=== PATIENT | female | born 1975 | race Caucasian/White ===

== ENCOUNTER 2019-10-02 10:23 | Outpatient (CLI) | payer OTHER, SELFPAY ==
[2019-10-02 11:03] LABS: Basophils Percent Auto 0.5 % (0.2-1.2); Eosinophils Absolute Auto 0.2 K/mm3 (0-0.3); Eosinophils Percent Auto 1.9 % (0-4.4); Hematocrit 38.3 % (37.0-47.0); Immature Granulocyte Absolute 0.02 K/mm3 (0.00-0.031); Immature Granulocyte Percent A 0.2 % (0-0.5); Lymphocytes Absolute Auto 1.77 K/mm3 (0.9-3.2); Lymphocytes Percent Auto 21.1 % (18.3-44.2); Mean Corpuscular HGB Conc 31.3 g/dl (32-36); Mean Corpuscular Hemoglobin 28.4 pg (26-34); Mean Corpuscular Volume 90.5 fl (80-100); Mean Platelet Volume 11.7 fl (7.4-10.4); Monocytes Absolute Auto 0.8 K/mm3 (0.1-0.6); Monocytes Percent Auto 9.1 % (2.6-8.5); Neutrophils Absolute Auto 5.6 K/mm3 (1.3-6.7); Neutrophils Percent Auto 67.2 % (45.5-73.1); Red Blood Count 4.23 M/mm3 (4.2-5.4); Red Cell Distribution Width 13.7 % (11.5-14.5); White Blood Count 8.4 K/mm3 (4.5-10.0)
[2019-10-02 11:16] LABS: Platelet Count Result 195 k/mm3 (150-375)
[2019-10-02 12:15] LABS: Alanine Aminotransferase 17 U/L (4-35); Albumin Level 3.9 g/dL (3.5-5.1); Alkaline Phosphatase 51 U/L (38-126); Aspartate Amino Transferase 21 U/L (14-36); Bilirubin,Total 0.2 mg/dL (0.2-1.3); Blood Urea Nitrogen 14 mg/dL (7-17); Calcium 9.5 mg/dL (8.4-10.2); Carbon Dioxide 28 mmol/L (22-30); Chloride 100 mmol/L (98-107); Estimated Glomerular Filt Rate > 60; Glucose 78 mg/dL (65-105); Potassium 4.6 mmol/L (3.4-5.0); Sodium 139 mmol/L (137-145)
[2019-10-05 08:30] LABS: Platelet Antibody, Direct IgG NEGATIVE (NEGATIVE)
== END 2019-10-02 10:24 | disposition home or self-care (01) ==
PROVIDERS: PCP Emergency Medicine; Visit Provider Internal Medicine Hematology & Oncology
DX: D69.59 Other secondary thrombocytopenia (principal)
CPT/HCPCS: 36415; 80053; 85025; 86023

== ENCOUNTER 2020-08-31 10:01 | Emergency (ER) | payer OTHER, SELFPAY ==
[2020-08-31] VITALS (15 sets, daily range): BP systolic 97–123; BP diastolic 51–71; PULSE 60–84; RESP 11–22; TEMP 36.1–36.7; O2SAT 97–100
--- NOTE | ~2020-08-31 | XR_ITS ---
EXAMINATION: XR chest 2V 08/31/2020 10:21 INDICATION: Chest pain PROCEDURE: PA and lateral views of the chest COMPARISON: No prior studies for comparison. FINDINGS: The lungs are clear. The cardiomediastinal silhouette is within normal limits. There are no pleural effusions. There is no pneumothorax suspected. IMPRESSION: 1: NO ACUTE CARDIOPULMONARY DISEASE. Reviewed, dictated and finalized at location A. MAKER
--- NOTE | 2020-08-31 10:07 | ECG_ITS ---
Measurements Intervals [place] Rate: 91 P: 76 W[place]: 169 QRS: -63 QRSD: 99 T: 83 QT: 368 QTc: 454 Interpretive Statements SINUS RHYTHM POSSIBLE LEFT ATRIAL ENLARGEMENT INCOMPLETE RIGHT BUNDLE BRANCH BLOCK LEFT ANTERIOR FASCICULAR BLOCK BASELINE ARTIFACT- I, III, AVR, AVL, AVF ABNORMAL ECG Electronically Signed On 08-31-2020 14:22:08 FOREST RESOURCE SPECIALIST by Bishnu May D.O.
[2020-08-31 10:31] LABS: Basophils Absolute Auto 0.1 K/mm3 (0.0-0.1); Basophils Percent Auto 0.8 % (0.2-1.2); Eosinophils Absolute Auto 0.2 K/mm3 (0-0.3); Eosinophils Percent Auto 2.1 % (0-4.4); Hematocrit 40.9 % (37.0-47.0); Hemoglobin 13.4 g/dL (12.0-15.0); Immature Granulocyte Absolute 0.03 K/mm3 (0.00-0.031); Immature Granulocyte Percent A 0.4 % (0-0.5); Lymphocytes Absolute Auto 1.67 K/mm3 (0.9-3.2); Lymphocytes Percent Auto 21.7 % (18.3-44.2); Mean Corpuscular HGB Conc 32.8 g/dl (32-36); Mean Corpuscular Hemoglobin 29.1 pg (26-34); Mean Corpuscular Volume 88.9 fl (80-100); Mean Platelet Volume 12.3 fl (7.4-10.4); Monocytes Absolute Auto 0.7 K/mm3 (0.1-0.6); Monocytes Percent Auto 8.7 % (2.6-8.5); Neutrophils Absolute Auto 5.1 K/mm3 (1.3-6.7); Neutrophils Percent Auto 66.3 % (45.5-73.1); Platelet Count Result 149 k/mm3 (150-375); Red Cell Distribution Width 14.8 % (11.5-14.5); White Blood Count 7.7 K/mm3 (4.5-10.0)
[2020-08-31 10:41] LABS: INR 0.8; Partial Thromboplastin Time 25.5 SECONDS (22.3-36.8); Prothrombin Time 12.1 Seconds (11.1-14.7)
[2020-08-31 10:54] LABS: Troponin I < 0.012 ng/mL (0.000-0.034)
[2020-08-31 11:00] LABS: Anion Gap 8 mmol/L (8-16); Blood Urea Nitrogen 21 mg/dL (7-17); Calcium 9.3 mg/dL (8.4-10.2); Carbon Dioxide 27 mmol/L (22-30); Chloride 100 mmol/L (98-107); Estimated CRCL calculation 99 ml/min; Estimated Glomerular Filt Rate > 60; Glucose 94 mg/dL (65-105); Potassium 3.9 mmol/L (3.4-5.0); Sodium 135 mmol/L (137-145)
--- NOTE | 2020-08-31 11:40 | ED.CHESTPAIN ---
HPI - Chest Pain General Chief Complaint: Chest Pain Stated Complaint: Chest Pressure, Flutter Time Seen by Provider: 08/31/20 10:09 Source: patient Mode of arrival: ambulatory Limitations: no limitations History of Present Illness HPI narrative: Patient 45-year-old female who presents for heart fluttering noting that she has been having some tightness of her hands and tingling for the last 2 weeks denies any chest pain or shortness of breath did recently get over Covid on arrival is in no distress denies any URI symptoms chest pain weakness vomiting or acute illness Related Data Allergies Allergy/AdvReac Type Severity Reaction Status Date / Time Sulfa (Sulfonamide Allergy Unknown Hives Verified 08/31/20 10:13 Antibiotics) SHELLFISH Allergy Severe Hives Uncoded 08/31/20 10:13 Review of Systems Review of Systems: All systems reviewed & are unremarkable except as noted in HPI and below PMFSH Past Medical History Medical History Chronic ITP (idiopathic thrombocytopenia) Kidney stones MRSA (methicillin resistant staph aureus) culture positive Surgical History Surgical History H/O tubal ligation Exam Narrative: Exam Narrative: GENERAL: Well-appearing, well-nourished, and in no acute distress. HEAD: Normocephalic, atraumatic. EYES: PERRLA and EOMI. ENT: Nares clear, no rhinorrhea or epistaxis. Mucous membranes moist. CHEST: Clear to auscultation. No respiratory distress. No wheezes rales or rhonchi HEART: Regular rate and rhythm. No murmur heard. Normal peripheral pulses. ABDOMEN: Soft, nontender, nondistended EXTREMITIES: Normal range of motion. No edema. SKIN: Warm, dry, no rash. NEURO: No focal deficits. Alert and oriented x3. Cranial nerves II through XII grossly intact. Neurovascularly intact. Capillary refill less than 2 seconds PSYCH: Normal mood and affect. Course Course Emergency Course: Patient in the room aware of case findings treatment plan diagnosis will be discharged home for outpatient reevaluation of her heart fluttering and paresthesias normal vital signs ABCs intact Vital Signs Vital signs: Vital Signs Temperature 97 F L 08/31/20 10:08 Pulse Rate 84 08/31/20 10:08 Respiratory Rate 15 08/31/20 10:08 Blood Pressure 123/71 08/31/20 10:08 Pulse Oximetry 100 08/31/20 10:08 Temperature 97 F L 08/31/20 10:08 Pulse Rate 64 08/31/20 11:01 Respiratory Rate 11 L 08/31/20 11:01 Blood Pressure 103/66 08/31/20 11:01 Pulse Oximetry 99 08/31/20 11:01 MDM - Chest Pain MDM Narrative Medical decision making narrative: Patient with heart fluttering and paresthesias no high risk changes in the EKG blood work felt appropriate for outpatient reevaluation by primary care patient agrees with this plan Lab Data Result diagrams: 08/31/20 10:15 08/31/20 10:15 Labs: Lab Results 08/31/20 08/31/20 08/31/20 Range/Units 10:15 10:15 10:15 WBC 7.7 (4.5-10.0) K/mm3 RBC 4.60 (4.2-5.4) M/mm3 Hgb 13.4 (12.0-15.0) g/dL Hct 40.9 (37.0-47.0) % MCV 88.9 (80-100) fl MCH 29.1 (26-34) pg MCHC 32.8 (32-36) g/dl RDW 14.8 H (11.5-14.5) % Plt Count 149 L (150-375) k/mm3 MPV 12.3 H (7.4-10.4) fl Immature Gran % (Auto) 0.4 (0-0.5) % Neut % (Auto) 66.3 (45.5-73.1) % Lymph % (Auto) 21.7 (18.3-44.2) % [place] % (Auto) 8.7 H (2.6-8.5) % Eos % (Auto) 2.1 (0-4.4) % Baso % (Auto) 0.8 (0.2-1.2) % Lymph # (Auto) 1.67 (0.9-3.2) K/mm3 [place] # (Auto) 0.7 H (0.1-0.6) K/mm3 Eos # (Auto) 0.2 (0-0.3) K/mm3 Baso # (Auto) 0.1 (0.0-0.1) K/mm3 Abs Immat Gran (auto) 0.03 (0.00-0.031) K/mm3 Absolute Neuts (auto) 5.1 (1.3-6.7) K/mm3 Absolute Nucleated RBC 0.0 (0.0-0.012) K/mm3 Nucleated RBC % 0.0 (0.0-0.2) % PT 12.1 (11.1-14.7) Seconds INR 0.8 AP
== END 2020-08-31 12:06 | disposition home or self-care (01) ==
PROVIDERS: Emergency Provider Emergency Medicine; PCP Emergency Medicine
DX: R00.2 Palpitations (principal); R20.2 Paresthesia of skin; D69.3 Immune thrombocytopenic purpura; Z87.442 Personal history of urinary calculi; Z86.14 Personal history of Methicillin resistant Staphylococcus aureus infection; I45.2 Bifascicular block
CPT/HCPCS: 36415; 71046; 80048; 84484; 85025; 85610; 85730; 93005; 99284

== ENCOUNTER → 2020-09-11 11:38 | Outpatient (CLI) | payer OTHER, SELFPAY ==
--- NOTE | ~2020-09-11 | XR_ITS ---
EXAMINATION: XR hand RT min 3V DATE: 09/11/2020 12:01 INDICATION: Right hand pain. TECHNIQUE: 3 views of right hand were obtained. COMPARISON: None. FINDINGS: Bone alignment is normal. No fracture. Joint spaces are normal. IMPRESSION: 1. Normal right hand. Reviewed, dictated and finalized at location B. IC RELATIONS ACCOUNT SUPERVISOR IMPRESSION: 1. Normal right hand.
--- NOTE | ~2020-09-11 | XR_ITS ---
EXAMINATION: XR wrist LT min 3V DATE: 09/11/2020 12:01 INDICATION: Left wrist pain. TECHNIQUE: 4 views of left wrist were obtained. COMPARISON: None. FINDINGS: Bone alignment is normal. No fracture. Joint spaces are well maintained. IMPRESSION: 1. Normal left wrist. Reviewed, dictated and finalized at location B. RVISOR BLASTING IMPRESSION: 1. Normal left wrist.
--- NOTE | ~2020-09-11 | XR_ITS ---
EXAMINATION: XR wrist RT min 3V DATE: 09/11/2020 12:01 INDICATION: Right wrist pain. TECHNIQUE: 4 views of right wrist were obtained. COMPARISON: None. FINDINGS: Bone alignment is normal. No fracture. Joint spaces are well maintained. IMPRESSION: 1. Normal right wrist. Reviewed, dictated and finalized at location B. RMATION SYSTEMS DIRECTOR IMPRESSION: 1. Normal right wrist.
--- NOTE | ~2020-09-11 | XR_ITS ---
EXAMINATION: XR hand LT min 3V DATE: 09/11/2020 12:01 INDICATION: Left hand pain. TECHNIQUE: 3 views of left hand were obtained. COMPARISON: None. FINDINGS: Bone alignment is normal. No fracture. There is mild osteoarthritis of first interphalangea l joint and second and third distal interphalangeal joints. IMPRESSION: 1. Mild polyarticular osteoarthritis. Reviewed, dictated and finalized at location B. RUCTIONAL MANAGER
== END ==
PROVIDERS: PCP Emergency Medicine; Visit Provider Emergency Medicine
DX: M25.541 Pain in joints of right hand (principal); M19.042 Primary osteoarthritis, left hand
CPT/HCPCS: 73110; 73130

== ENCOUNTER 2020-09-26 10:46 | Outpatient (CLI) | payer OTHER, SELFPAY ==
[2020-09-26 11:13] LABS: Basophils Absolute Auto 0.1 K/mm3 (0.0-0.1); Basophils Percent Auto 0.6 % (0.2-1.2); Eosinophils Absolute Auto 0.2 K/mm3 (0-0.3); Eosinophils Percent Auto 2.5 % (0-4.4); Hematocrit 38.8 % (37.0-47.0); Hemoglobin 12.5 g/dL (12.0-15.0); Immature Granulocyte Absolute 0.03 K/mm3 (0.00-0.031); Immature Granulocyte Percent A 0.4 % (0-0.5); Immature Platelet Fraction Pct 36.1 % (0.9-11.2); Lymphocytes Absolute Auto 1.42 K/mm3 (0.9-3.2); Lymphocytes Percent Auto 16.8 % (18.3-44.2); Mean Corpuscular HGB Conc 32.2 g/dl (32-36); Mean Corpuscular Hemoglobin 28.9 pg (26-34); Mean Corpuscular Volume 89.8 fl (80-100); Monocytes Absolute Auto 0.7 K/mm3 (0.1-0.6); Monocytes Percent Auto 8.3 % (2.6-8.5); Neutrophils Percent Auto 71.4 % (45.5-73.1); Platelet Count Result 93 k/mm3 (150-375); Red Blood Count 4.32 M/mm3 (4.2-5.4); White Blood Count 8.4 K/mm3 (4.5-10.0)
[2020-09-26 11:13] LABS: Blood Urea Nitrogen 20 mg/dL (8-26); Carbon Dioxide 29 mmol/L (22-30); Chloride 100 mmol/L (98-109); Estimated Glomerular Filt Rate > 60; Glucose 85 mg/dL (70-105); Potassium 4.4 mmol/L (3.5-4.9); Sodium 138 mmol/L (138-146)
== END 2020-09-26 10:47 | disposition home or self-care (01) ==
LOC: ANHLAB 10:48
PROVIDERS: PCP Emergency Medicine; Visit Provider Internal Medicine Hematology & Oncology
DX: D69.59 Other secondary thrombocytopenia (principal)
CPT/HCPCS: 36415; 80048; 85025; 85055

== ENCOUNTER 2020-11-01 10:21 | Outpatient (CLI) | payer OTHER, SELFPAY ==
--- NOTE | ~2020-11-01 | MM_ITS ---
EXAMINATION: MM screening [place] BI w teo HISTORY: Screening mammogram TECHNIQUE: Craniocaudal and mediolateral oblique 3-D tomosynthesis images were obtained and synthetic 2-D images were generated. CAD analysis was submitted and interpreted. COMPARISON: No prior mammogram is available for comparison at this institution. BREAST PARENCHYMAL COMPOSITION: There are scattered areas of fibroglandular density. FINDINGS: There is an asymmetric 7 mm opacity in the mid anterior mid left breast on craniocaudal vie w (craniocaudal Tomosynthesis image 32/69). Diagnostic left mammogram is recommended, with ultrasound if required. Otherwise there is no evidence of suspicious mass, calcification, or architectural distortion to sugg est malignancy in either breast. IMPRESSION: 1. 7 mm asymmetry in anterior left mid breast on craniocaudal view 2. Diagnostic left mammogram is recommended, with ultrasound if required BI-RADS Category 0: Incomplete: Needs additional imaging evaluation. Reviewed, dictated and finalized at location A. ATTACHER
== END 2020-11-01 10:22 | disposition home or self-care (01) ==
LOC: ANHIMG 10:23
PROVIDERS: PCP Emergency Medicine; Visit Provider Nurse Practitioner Obstetrics & Gynecology
DX: Z12.31 Encounter for screening mammogram for malignant neoplasm of breast (principal); R92.8 Other abnormal and inconclusive findings on diagnostic imaging of breast
CPT/HCPCS: 77063; 77067

== ENCOUNTER 2020-11-29 12:41 | Outpatient (CLI) | payer OTHER, SELFPAY ==
--- NOTE | ~2020-11-29 | MMUS_ITS ---
EXAMINATION: MM diagnostic mammo unilat LT, US breast LT complete HISTORY: 7 mm asymmetry in anterior left mid breast on 11/01/2020 screening craniocaudal view TECHNIQUE: Additional 3-D tomosynthesis images of the left breast were performed and synthetic 2-D im ages were generated. Rolled medial and lateral craniocaudal views. CAD analysis was submitted and int erpreted. High resolution complete left breast ultrasound was performed. COMPARISON: 11/01/2020 bilateral digital screening mammogram FINDINGS: MAMMOGRAPHIC FINDINGS: Coned compression CC view and rolled medial and rolled lateral craniocaudal views and ML Tomosynthesi s images do not confirm a definitive mass. ULTRASOUND: 2:00 subareolar area: Approximately 3.6 mm sonolucency with through transmission posterior enhancemen t and no internal vascularity, consistent with small cyst. No suspicious mass or shadowing or other significant sonographic abnormality of the left breast is ev ident. IMPRESSION: 1. No mammographic evidence of malignancy 2. Routine annual mammographic screening is recommended. BI-RADS Category 2: Benign finding(s). Reviewed, dictated and finalized at location A. IMPRESSION: 1. No mammographic evidence of malignancy 2. Routine annual mammographic screening is recommended. BI-RADS Category 2: Benign finding(s).
== END 2020-11-29 12:42 | disposition home or self-care (01) ==
LOC: ANHIMG 12:43
PROVIDERS: PCP Emergency Medicine; Visit Provider Nurse Practitioner Obstetrics & Gynecology
DX: R92.8 Other abnormal and inconclusive findings on diagnostic imaging of breast (principal)
CPT/HCPCS: 76641; 77065

== ENCOUNTER 2021-04-22 11:28 | Outpatient (CLI) | payer OTHER, SELFPAY ==
[2021-04-22 11:45] LABS: Basophils Absolute Auto 0.1 K/mm3 (0.0-0.1); Basophils Percent Auto 0.7 % (0.2-1.2); Eosinophils Absolute Auto 0.2 K/mm3 (0-0.3); Eosinophils Percent Auto 2.1 % (0-4.4); Hematocrit 38.2 % (37.0-47.0); Hemoglobin 12.2 g/dL (12.0-15.0); Immature Granulocyte Absolute 0.03 K/mm3 (0.00-0.031); Immature Granulocyte Percent A 0.4 % (0-0.5); Immature Platelet Fraction Pct 48.3 % (0.9-11.2); Lymphocytes Absolute Auto 1.28 K/mm3 (0.9-3.2); Lymphocytes Percent Auto 17.8 % (18.3-44.2); Mean Corpuscular HGB Conc 31.9 g/dl (32-36); Mean Corpuscular Hemoglobin 29.1 pg (26-34); Mean Corpuscular Volume 91.2 fl (80-100); Mean Platelet Volume 13.5 fl (7.4-10.4); Monocytes Absolute Auto 0.7 K/mm3 (0.1-0.6); Monocytes Percent Auto 9.6 % (2.6-8.5); Neutrophils Percent Auto 69.4 % (45.5-73.1); Platelet Count Result 28 k/mm3 (150-375); Red Blood Count 4.19 M/mm3 (4.2-5.4); Red Cell Distribution Width 14.8 % (11.5-14.5); White Blood Count 7.2 K/mm3 (4.5-10.0)
== END 2021-04-22 11:29 | disposition home or self-care (01) ==
LOC: ANHLAB 11:31
PROVIDERS: PCP Emergency Medicine; Visit Provider Internal Medicine Hematology & Oncology
DX: D69.59 Other secondary thrombocytopenia (principal)
CPT/HCPCS: 36415; 85025; 85055

== ENCOUNTER → 2021-09-17 13:02 | Outpatient (CLI) | payer OTHER, SELFPAY ==
--- NOTE | ~2021-09-17 | XR_ITS ---
EXAMINATION: XR chest 2V EXAM DATE: 09/17/2021 13:18 INDICATION: Cough and wheezing. TECHNIQUE: Frontal and lateral projections of the chest obtained and reviewed. Comparison is made to prior examination from 08/31/2020. FINDINGS: The lungs are clear. There are no pleural effusions. The cardiomediastinal silhouette is within normal limits. There is no pneumothorax suspected. The bones and soft tissues are unremarkab le. IMPRESSION: Normal chest x-ray exam. Reviewed, dictated and finalized at location A. IZER WATER WELL IMPRESSION: Normal chest x-ray exam.
== END ==
PROVIDERS: PCP Emergency Medicine; Visit Provider Emergency Medicine
DX: R05.9 Cough, unspecified (principal); R06.2 Wheezing
CPT/HCPCS: 71046

== ENCOUNTER → 2021-09-18 01:16 | Outpatient (CLI) | payer OTHER, SELFPAY ==
[2021-09-18 18:23] LABS: SARS-CoV-2 RNA PCR Negative
== END ==
PROVIDERS: PCP Emergency Medicine; Visit Provider Emergency Medicine
DX: J06.9 Acute upper respiratory infection, unspecified (principal); Z20.822 Contact with and (suspected) exposure to COVID-19
CPT/HCPCS: C9803; U0003; U0005

== ENCOUNTER → 2022-01-13 01:45 | Outpatient (CLI) | payer OTHER, SELFPAY ==
[2022-01-13 16:48] LABS: SARS-CoV-2 RNA PCR Positive
== END ==
PROVIDERS: PCP Emergency Medicine; Visit Provider Emergency Medicine
DX: U07.1 COVID-19 (principal)
CPT/HCPCS: C9803; U0003; U0005

== ENCOUNTER 2022-01-22 07:20 | Outpatient (CLI) | payer OTHER, SELFPAY ==
--- NOTE | ~2022-01-22 | MM_ITS ---
EXAMINATION: MM screening [place] BI w teo HISTORY: Screening mammogram TECHNIQUE: Craniocaudal and mediolateral oblique 3-D tomosynthesis images were obtained and synthetic 2-D images were generated. CAD analysis was submitted and interpreted. COMPARISON: 11/29/2020 diagnostic left mammogram and complete left breast ultrasound 11/01/2020 bilateral screening mammogram BREAST PARENCHYMAL COMPOSITION: There are scattered areas of fibroglandular density. FINDINGS: There is no evidence of suspicious mass, calcification, or architectural distortion to sugg est malignancy in either breast. There has been no suspicious interval change. IMPRESSION: 1. No mammographic evidence of malignancy. 2. Recommend routine screening mammography in one year. BI-RADS Category 1: Negative Reviewed, dictated and finalized at location A.
== END 2022-01-22 07:21 | disposition home or self-care (01) ==
LOC: ANHIMG 07:21
PROVIDERS: PCP Emergency Medicine; Visit Provider Emergency Medicine
DX: Z12.31 Encounter for screening mammogram for malignant neoplasm of breast (principal)
CPT/HCPCS: 77063; 77067

== ENCOUNTER 2022-08-22 06:44 | Emergency (ER) | payer OTHER, SELFPAY ==
--- NOTE | ~2022-08-22 | CT_ITS ---
EXAMINATION: CT abdomen pelvis w con DATE: 08/22/2022 10:37 INDICATION: Left lower quadrant abdominal pain. TECHNIQUE: Computed tomography (CT) of the abdomen and pelvis was performed with 100 mL Omnipaque 350 intravenous contrast. Automated exposure control and iterative reconstruction technique were employe d. The dose-length product was 569.27 mGy-cm. COMPARISON: None. FINDINGS: The visualized portions of the lung bases are clear without pneumonia or pleural effusion. The heart size is normal. No pericardial effusion. The liver, gallbladder, spleen, pancreas, adrenal glands, and left kidney are normal. There is mild atrophy of right kidney. There is fat stranding bakari und an epiploic appendage of sigmoid colon, consistent with epiploic appendagitis. There are no dilat ed loops of bowel. The appendix is normal. There are no pathologically enlarged lymph nodes. There is no free intraperitoneal fluid. The bones are unremarkable. IMPRESSION: 1. Epiploic appendagitis of sigmoid colon. Reviewed, dictated and finalized at location A. ER RECOVERY OPERATOR
[2022-08-22 06:52] VITALS: BP 111/68; PULSE 83; RESP 18; TEMP 36.6; O2SAT 100
--- NOTE | 2022-08-22 09:54 | ED.ABDPAIN ---
HPI - Abdominal Pain General Chief Complaint: Abdominal Pain <GONZALO Atkinson Last Filed: 08/22/22 11:04> Stated Complaint: left flank pain <GONZALO Atkinson Last Filed: 08/22/22 11:04> Time Seen by Provider: 08/22/22 09:48 <GONZALO Atkinson Last Filed: 08/22/22 11:04> History of Present Illness HPI narrative: Patient is a 46-year-old female with a history of Sjogren's syndrome and ITP here for evaluation of left-sided abdominal pain for the past 2 days. Patient states the pain is sharp in nature and is constant, no obvious alleviating or triggering factors. She has not taken any medicine for pain. Denies a history of previous similar sensation. She denies any vomiting, nausea, diarrhea, constipation, dysuria, urgency, frequency, fevers. She has a history of a tubal ligation. <GONZALO Atkinson Last Filed: 08/22/22 11:04> Related Data Allergies/Adverse Reactions: Allergies Allergy/AdvReac Type Severity Reaction Status Date / Time Sulfa (Sulfonamide Allergy Unknown Hives Verified 08/22/22 10:02 Antibiotics) SHELLFISH Allergy Severe Hives Uncoded 08/22/22 10:02 <GONZALO Atkinson Last Filed: 08/22/22 11:04> Review of Systems Review of Systems: Gen.: Denies fevers or chills Eyes: Denies eye pain or visual change ENT: Denies congestion Respiratory: Denies shortness of breath or cough CV: Denies chest pain or palpitations GI: Reports left lower quadrant abdominal pain denies nausea, emesis or diarrhea : denies burning, urgency, frequency or hematuria Musculoskeletal: Denies back pain or muscle pain Neuro: Denies numbness, tingling, weakness or focal weakness Skin: Denies rash Except as documented, all other systems reviewed and negative <GONZALO Atkinson Last Filed: 08/22/22 11:04> PMFSH Past Medical History Medical History: Medical History Chronic ITP (idiopathic thrombocytopenia) Kidney stones MRSA (methicillin resistant staph aureus) culture positive <Santa Dunn PA-C - Last Filed: 08/22/22 11:04> Surgical History Surgical History: Surgical History H/O tubal ligation <Santa Dunn PA-C - Last Filed: 08/22/22 11:04> Exam Narrative: APPEARANCE: Well appearing, no pain in distress, well-nourished. Head: Normocephalic and atraumatic. EYES: PERRLA/EOMI, conjunctivae clear NOSE: No nasal drainage EARS: External ear normal in appearance THROAT: Oropharynx is clear. Mucous membranes are moist. NECK: Supple. No adenopathy, no masses. RESPIRATORY: Airway patent, respirations nonlabored. Clear to auscultation bilaterally, no rales, rhonchi, wheezing. CARDIOVASCULAR: Regular rate and rhythm without murmurs, rubs, or gallops. ABDOMINAL: Tender to palpation in the left lower quadrant with involuntary guarding normoactive bowel sounds. Soft, nondistended. MUSCULOSKELETAL: Extremities are warm and well-perfused. Moves all extremities well. No edema. NEURO: Normal speech. No focal neurologic deficits. SKIN: Skin is warm and dry. No rashes. PSYCHIATRIC: Normal affect/mood. <Santa Dunn PA-C - Last Filed: 08/22/22 11:04> Course RETAIL GREETING CARD MERCHANDISER/PA Physician Supervision For this encounter, I have reviewed the mid-level provider documentation, treatment plan and medical decision making. I have had [id number] time with the patient. Physical exam revealed a pleasant 46-year-old woman with tenderness in the left lower quadrant. Lab work and CT abdomen pelvis were ordered which revealed epiploic appendagitis. additionally her urinalysis indicated UTI. Patient will be discharged with antibiotics and appropriate pain control. She has been given return precautions. . All questions answered. Patient in agreement w/ disposition. <Kranthi Richardson MD - Last Filed:
[2022-08-22] MEDS: ENTER PT WEIGHT XX (10:11)
[2022-08-22 10:17] LABS: Hematocrit 44.4 % (37.0-47.0); Hemoglobin 13.9 g/dL (12.0-15.0); Immature Platelet Fraction Pct 24.7 % (0.9-11.2); Mean Corpuscular HGB Conc 31.3 g/dl (32-36); Mean Corpuscular Hemoglobin 28.3 pg (26-34); Mean Corpuscular Volume 90.2 fl (80-100); Mean Platelet Volume 10.4 fl (7.4-10.4); Platelet Count Result 53 k/mm3 (150-375); Red Blood Count 4.92 M/mm3 (4.2-5.4); Red Cell Distribution Width 13.1 % (11.5-14.5); White Blood Count 3.6 K/mm3 (4.5-10.0)
[2022-08-22 10:24] LABS: Alanine Aminotransferase 26 U/L (6-35); Albumin Level 4.5 g/dL (3.5-5.1); Alkaline Phosphatase 75 U/L (38-126); Anion Gap 8 mmol/L (8-16); Aspartate Amino Transferase 27 U/L (14-36); Bilirubin,Total 0.4 mg/dL (0.2-1.3); Blood Urea Nitrogen 9 mg/dL (7-17); Calcium 9.1 mg/dL (8.4-10.2); Carbon Dioxide 29 mmol/L (22-30); Chloride 100 mmol/L (98-107); Estimated CRCL calculation 89 ml/min; Estimated Glomerular Filt Rate > 60; Glucose 97 mg/dL (65-110); Lipase 59 U/L (23-300); Sodium 137 mmol/L (137-145)
[2022-08-22 10:27] LABS: Add Urine Microscopic? YES; Appearance Urine Clear (Clear); Bilirubin Urine Negative (Negative); Blood Urine Negative (Negative); Color Urine Yellow (Yellow); Glucose Urine UA Negative (Negative); Ketones Urine Negative (Negative); Leukocyte Esterase Ur 1+ LEU/UL (Negative); Nitrate Urine Positive (Negative); Protein Urine Negative (Negative); Urobilinogen Urine 0.2 mg/dL (<2.0)
[2022-08-22 10:29] LABS: Bacteria Urine Trace /hpf; Mucus Urine Rare /lpf; RBC Urine 0-2 /hpf (0-2); Squamous Epithelial Cell Urine Few /hpf (Few)
[2022-08-22 10:31] LABS: Band Neutrophils Percent 3 % (0-6); Eosinophils Absolute Manual 0.07 K/mm3 (0.02-0.5); Eosinophils Percent Manual 2 % (0-4); Lymphocytes Absolute Manual 1.54 K/mm3 (1.1-4.5); Monocytes Absolute Manual 1.04 K/mm3 (0.1-0.90); Monocytes Percent Manual 29 % (3-9); Neutrophils Absolute Manual 0.93 K/mm3 (1.7-7.2); Neutrophils Percent Manual 23 % (46-73); Platelet Clumps Present; Platelet Estimate Decreased (Adequate); Schistocytes None Seen (NORMAL); Total Cells Counted 100
[2022-08-22] MEDS: KETOROLAC 15 MG/ML VIAL (*BKC) IV PUSH (10:55)
[2022-08-22 10:57] VITALS: BP 122/64; PULSE 64; RESP 17; O2SAT 99
== END 2022-08-22 11:11 | disposition home or self-care (01) ==
LOC: ANHED 10:52
PROVIDERS: Physician Assistant; Emergency Provider Emergency Medicine; PCP Emergency Medicine
DX: K63.89 Other specified diseases of intestine (principal); N39.0 Urinary tract infection, site not specified; M35.00 Sjogren syndrome, unspecified; D69.3 Immune thrombocytopenic purpura; Z87.442 Personal history of urinary calculi; Z86.14 Personal history of Methicillin resistant Staphylococcus aureus infection
CPT/HCPCS: 36415; 74177; 80053; 81001; 81025; 83690; 85025; 85055; 87077; 87086; 87186; 96365; 96375; 99284; J0131; J1885; Q9967

== ENCOUNTER 2022-09-03 11:07 | Outpatient (CLI) | payer OTHER, SELFPAY ==
[2022-09-03 11:17] LABS: Basophils Absolute Auto 0.1 K/mm3 (0.0-0.1); Basophils Percent Auto 0.9 % (0.2-1.2); Eosinophils Absolute Auto 0.2 K/mm3 (0-0.3); Eosinophils Percent Auto 3.5 % (0-4.4); Hematocrit 40.2 % (37.0-47.0); Hemoglobin 12.7 g/dL (12.0-15.0); Immature Granulocyte Absolute 0.03 K/mm3 (0.00-0.031); Immature Granulocyte Percent A 0.5 % (0-0.5); Lymphocytes Absolute Auto 1.59 K/mm3 (0.9-3.2); Lymphocytes Percent Auto 25.1 % (18.3-44.2); Mean Corpuscular HGB Conc 31.6 g/dl (32-36); Mean Corpuscular Hemoglobin 28.3 pg (26-34); Mean Corpuscular Volume 89.7 fl (80-100); Mean Platelet Volume 11.9 fl (7.4-10.4); Monocytes Absolute Auto 0.7 K/mm3 (0.1-0.6); Monocytes Percent Auto 11.7 % (2.6-8.5); Neutrophils Absolute Auto 3.7 K/mm3 (1.3-6.7); Neutrophils Percent Auto 58.3 % (45.5-73.1); Platelet Count Result 60 k/mm3 (150-375); Red Blood Count 4.48 M/mm3 (4.2-5.4); Red Cell Distribution Width 13.1 % (11.5-14.5); White Blood Count 6.3 K/mm3 (4.5-10.0)
[2022-09-03 11:22] LABS: Blood Urea Nitrogen 15 mg/dL (8-26); Carbon Dioxide 31 mmol/L (22-30); Chloride 100 mmol/L (98-109); Estimated Glomerular Filt Rate > 60; Glucose 90 mg/dL (70-105); Ionized Calcium (POC) 1.23 mmol/L (1.11-1.31); Potassium 4.5 mmol/L (3.5-4.9); Sodium 139 mmol/L (138-146)
== END 2022-09-03 11:08 | disposition home or self-care (01) ==
LOC: ANHLAB 11:08
PROVIDERS: PCP Emergency Medicine; Visit Provider Internal Medicine Hematology & Oncology
DX: D69.3 Immune thrombocytopenic purpura (principal)
CPT/HCPCS: 36415; 80047; 85025

== ENCOUNTER 2023-07-07 15:21 | Outpatient (CLI) | payer OTHER, SELFPAY ==
[2023-07-07 15:37] LABS: Basophils Absolute Auto 0.1 K/mm3 (0.0-0.1); Basophils Percent Auto 0.7 % (0.2-1.2); Eosinophils Absolute Auto 0.3 K/mm3 (0-0.3); Eosinophils Percent Auto 3.9 % (0-4.4); Hematocrit 41.3 % (37.0-47.0); Hemoglobin 13.5 g/dL (12.0-15.0); Immature Granulocyte Absolute 0.02 K/mm3 (0.00-0.031); Immature Granulocyte Percent A 0.3 % (0-0.5); Immature Platelet Fraction Pct 44.6 % (0.9-11.2); Lymphocytes Absolute Auto 1.68 K/mm3 (0.9-3.2); Lymphocytes Percent Auto 23.6 % (18.3-44.2); Mean Corpuscular HGB Conc 32.7 g/dl (32-36); Mean Corpuscular Hemoglobin 29.1 pg (26-34); Monocytes Absolute Auto 0.7 K/mm3 (0.1-0.6); Monocytes Percent Auto 10.4 % (2.6-8.5); Neutrophils Absolute Auto 4.4 K/mm3 (1.3-6.7); Neutrophils Percent Auto 61.1 % (45.5-73.1); Platelet Count Result 65 k/mm3 (150-375); Red Blood Count 4.64 M/mm3 (4.2-5.4); Red Cell Distribution Width 13.4 % (11.5-14.5); White Blood Count 7.1 K/mm3 (4.5-10.0)
[2023-07-07 15:39] LABS: Blood Urea Nitrogen 19 mg/dL (8-26); Carbon Dioxide 30 mmol/L (22-30); Chloride 99 mmol/L (98-109); Estimated Glomerular Filt Rate 60; Glucose 85 mg/dL (70-105); Ionized Calcium (POC) 1.21 mmol/L (1.11-1.31); Potassium 4.1 mmol/L (3.5-4.9); Sodium 139 mmol/L (138-146)
== END 2023-07-07 15:22 | disposition home or self-care (01) ==
LOC: ANHLAB 15:22
PROVIDERS: PCP Emergency Medicine; Visit Provider Internal Medicine Hematology & Oncology
DX: D69.3 Immune thrombocytopenic purpura (principal); D69.59 Other secondary thrombocytopenia
CPT/HCPCS: 36415; 80047; 85025; 85055

== ENCOUNTER → 2023-09-09 16:47 | Outpatient (CLI) | payer OTHER, SELFPAY ==
--- NOTE | ~2023-09-09 | XR_ITS ---
XR chest 2V DATE: 09/09/2023 17:05 INDICATION: Cough, wheezing TECHNIQUE: 2 views COMPARISON: 09/17/2021 2 view chest FINDINGS: Normal heart size. No hilar or mediastinal enlargement. No pulmonary infiltrate or consolid ation, pleural effusion or pulmonary vascular congestion or pneumothorax is detected. Included skeletal structures are unremarkable. IMPRESSION: No active cardiopulmonary disease Reviewed, dictated and finalized at location B. DIGGER
== END ==
PROVIDERS: PCP Emergency Medicine; Visit Provider Emergency Medicine
DX: R05.9 Cough, unspecified (principal); R06.2 Wheezing
CPT/HCPCS: 71046

== ENCOUNTER 2024-03-23 15:29 | Outpatient (CLI) | payer OTHER, SELFPAY ==
--- NOTE | ~2024-03-23 | MM_ITS ---
EXAMINATION: MM screening [place] BI w teo HISTORY: Screening TECHNIQUE: Craniocaudal and mediolateral oblique 3-D tomosynthesis images were obtained and synthetic 2-D images were generated. CAD analysis was submitted and interpreted. COMPARISON: Comparison to multiple prior studies sequentially, with oldest reviewed study dated 11/01. BREAST PARENCHYMAL COMPOSITION: Not dense: There are scattered areas of fibroglandular density. FINDINGS: There is no evidence of suspicious mass, calcification, or architectural distortion to sugg est malignancy in either breast. There has been no suspicious interval change. IMPRESSION: 1. No mammographic evidence of malignancy. 2. Recommend routine screening mammography in one year. BI-RADS Category 1: Negative Reviewed, dictated and finalized at location B.
== END 2024-03-23 15:30 | disposition home or self-care (01) ==
LOC: ANHIMG 15:30
PROVIDERS: PCP Emergency Medicine; Visit Provider Nurse Practitioner Obstetrics & Gynecology
DX: Z12.31 Encounter for screening mammogram for malignant neoplasm of breast (principal)
CPT/HCPCS: 77063; 77067

== ENCOUNTER 2025-01-10 10:25 | Outpatient (CLI) | payer OTHER, SELFPAY ==
[2025-01-10 10:42] LABS: Basophils Absolute Auto 0.1 K/mm3 (0.0-0.1); Basophils Percent Auto 0.8 % (0.2-1.2); Eosinophils Absolute Auto 0.2 K/mm3 (0-0.3); Eosinophils Percent Auto 3.1 % (0-4.4); Hematocrit 41.8 % (37.0-47.0); Hemoglobin 13.6 g/dL (12.0-15.0); Immature Granulocyte Absolute 0.02 K/mm3 (0.00-0.031); Immature Granulocyte Percent A 0.3 % (0-0.5); Lymphocytes Percent Auto 24.5 % (18.3-44.2); Mean Corpuscular HGB Conc 32.5 g/dl (32-36); Mean Corpuscular Hemoglobin 29.8 pg (26-34); Mean Corpuscular Volume 91.7 fl (80-100); Mean Platelet Volume 10.5 fl (7.4-10.4); Monocytes Absolute Auto 0.8 K/mm3 (0.1-0.6); Monocytes Percent Auto 10.7 % (2.6-8.5); Neutrophils Absolute Auto 4.7 K/mm3 (1.3-6.7); Neutrophils Percent Auto 60.6 % (45.5-73.1); Platelet Count Result 165 k/mm3 (150-375); Red Blood Count 4.56 M/mm3 (4.2-5.4); Red Cell Distribution Width 12.4 % (11.5-14.5); White Blood Count 7.8 K/mm3 (4.5-10.0)
[2025-01-10 10:45] LABS: Blood Urea Nitrogen 15 mg/dL (8-26); Carbon Dioxide 27 mmol/L (22-30); Chloride 102 mmol/L (98-109); Estimated Glomerular Filt Rate > 60; Glucose 93 mg/dL (70-105); Ionized Calcium (POC) 1.19 mmol/L (1.11-1.31); Potassium 4.1 mmol/L (3.5-4.9); Sodium 141 mmol/L (138-146)
--- OUTSIDE RECORDS SUMMARY | 2025-01-10 11:02 | XMS_ITS | Data Portability ---
Author Organization [facility] Address [address] [place] [address] Care Team Providers Care Rip/Mould Operator Name Role Phone MONA WATSON Primary Care Provider [phone] Assessment Encounter Date Assessment Date Assessment LastModified by Organization Details LastModified Time 07/15/2021 07/15/2021 Annual gynecological exam performed. Patient will come back in a year unless there are new symptoms. [email or web address] Not available 07/15/2021 12:38:53 08/27/2022 08/27/2022 Annual gynecological exam performed. Patient will come back in a year unless there are new symptoms. [email or web address] Not available 08/27/2022 11:20:51 11/04/2023 11/04/2023 Annual gynecological exam performed. Patient will come back in a year unless there are new symptoms. [email or web address] Not available 11/04/2023 14:20:41 11/17/2024 11/17/2024 Annual gynecological exam performed. Patient will come back in a year unless there are new symptoms. [email or web address] Not available 11/17/2024 09:21:34 Plan of Treatment Reminders Order Date Submit Date Provider Last Modified By Organization Details Last Modified Time Details Appointments MED CHECK 2024 08:30A M BUCK Beckett Not available Not available Not available Lab pap, IG + HR HPV - HPV regardles s but if HPV is positive need subtyping 16,18/45 2024 025 [facility] (Lab), [address], [place], [address], 11/22/2024 18:22:16 lh + FSH, serum 2022 023 [facility] (Lab), [address] [place], [address], 08/28/2022 05:04:07 estradiol , serum 2022 023 [facility] (Lab), [address], [place], [address], 08/28/2022 05:04:06 Referral None recorded. Procedures None recorded. Surgeries None recorded. Imaging MAMMO, screening , digital, bilateral [address] [facility], [address], [address], [place], [address], 11/27/2024 18:51:12 MAMMO, screening , bilateral [address] [facility], [address], [address], [place], [address], 01/13/2024 14:21:34 Medication Orders estradiol 0.01% (0.1 mg/gram) vaginal cream 2024 025 [id number], [address], [place], [place], [id number], 11/17/2024 10:57:19 [facility]vex[facility] Maintenan ce Pack 4 mcg vaginal insert 2023 025 [facility] [address], [place], [address], 11/17/2024 11:02:07 Imvexxy Maintenan ce Pack 4 mcg vaginal insert 2023 024 [id number], [address], [place], [place], [id number], 11/17/2024 10:57:06 Patient TargetsNo targets recorded. Patient InstructionsNo instructions recorded. Reason for Referral None Reported. Results Created Date Observation Date Name Description Value Unit Range Abnormal Flag Note LastModifiedBy Organization Detail LastModifiedTime 07/15/20 21 07/15/2021 IMAGE GUIDE D PAP AND HPV REGAR DLESS image guided Pap, HPV regardless of Pap result SEE RESULT S BELOW CASE REPOR T: Cytol ogy Gynec ologi carlos Repor t Case: [id number] Autho francisco ellis Provi margarita: Esa hernandez , Jim Spencer cted: 07/15 1416 MIRROR INSTALLER Order ing Locat ion: [place] Patho logy Recei kayleen: 07/16 0019 First Scree n: Almas Almazan am, CT Speci men: Screclara abbottg Pap - Image d, Cervi x STATE MENT OF ADEQU ACY: Satis facto ry for evalu ation Trans forma tion zone compo nent prese nt Parti ally obscu ring infla mmati on prese nt. FINAL DIAGN OSIS: Negat jennifer for Intra epith elial Leskenny lynn or Trinity delgado (NIL) . Elect remberto millan su d by Almas Almazan am, CT on 2020 at 1:40 PM ----- ----- ----- ----- ----- ----- ----- ----- ----- ----- ----- ----- ----- ----- ----- ----- ----- ---- HPV RESUL TS: HPV mRNA E6/E7 : No HPV mRNA Detec mindi NOTE: This high risk HPV mRNA assay detec ts fourt een high- risk HPV types (16, 18, 31, 33, 35, 39, 45, 51, 52, 56, 58, 59, 66, 68) witho ut diffe renti ation . COMME NT: Note: This speci men was revie wed by a Cytot echno logis t and/o r Patho logis t (as indic ated in this repor t) after evalu ation using the Thinp rep Imagi ng Syste m. CLINI CARLOS INFOR MATIO N: Menst rual Statu s: LMP (if appli cable ): Clini carlos Histo ry/Pr eviou s Pap: Type of Neopl ernesto (if appli cable ): Signi fican t Clini carlos Findi ngs: Other Histo ry: Hormo kaushal (if appli cable ): PAP EDUCA AMANDA L NOTE: The Pap Test is a scree joy test with an inher ent false negat jennifer rate. Liqui d-bas e sampl ing may decre ase, but will not elimi naveed, false negat jennifer resul ts. A negat jennifer resul t does not precl ude the prese nce and/o r devel opmen t of disea se, since the prese nce of abnor mal cells in the sampl e depen ds on the locat ion of the lesio n and sampl ing techn ique. Rox nued regul ar scree joy is the best metho d of cance r preve ntion . If repor mindi cytol ogic findi ng do not corre late with physi carlos and/o r histo rical findi ngs, furth er inves tigat ion is recom makayla d, as clini mariann valladares nted. Not Available [facility] (Lab) [address], [place], [address], 07/24/2021 14:41:45 08/27/19 23 08/27/2022 ESTRA DIOL estradiol <5.0 pg/mL This assay was perfo rmed using [employer] ratio n reage nts and test kits. Value s obtai gunnar with other assay metho ds or kits canno t be used inter lucero eably . Femal e Estra diol Range s: Folli cular phase 12.4- 233 pg/mL Ovula tion phase 41.0- 398 pg/mL Lutea l phase 22.3- 341 pg/mL Postm enopa usal< 5-138 pg/mL Healt hy Pregn ant Women 1st Trime ster1 54-32 43 pg/mL 2nd Trime ster1 561-2 1280 pg/mL 3rd Trime ster8 525-> 41686 pg/mL Not Available [facility] (Lab) [address] [place], [address], 08/28/2022 05:04:06 08/27/19 23 08/27/2022 FSH / LH FSH 87.6 mIU/m L This assay was perfo rmed using [employer] reage nts and test kits. Value s obtai gunnar with other assay metho ds or kits canno t be used [facility] . Femal es Folli cular : 3.5-1 2.5 mIU/m L Ovula tion: 4.7-2 1.5 mIU/m L Lutea l: 1.7-7 .7 mIU/m L Postm enopa use: 25.8- 134.8 mIU/m L Not Available [facility] (Lab) [address], [place], [address], 08/28/2022 05:04:07 08/27/19 23 08/27/2022 FSH / LH LH 45.2 mIU/m L This assay was perfo rmed using [employer] reage nts and test kits. Value s obtai gunnar with other assay metho ds or kits canno t be used [facility] . Femal es Mid-F ollic ular: 2.4-1 2.6 mIU/m L Mid-C ycle: 14.0- 95.6 mIU/m L Mid-L uteal : 1.0-1 1.4 mIU/m L Postm enopa use: 7.7-5 8.5 mIU/m L Not Available [facility] (Lab) [address] [place], [address], 08/28/2022 05:04:07 08/27/19 23 08/27/2022 IMAGE GUIDE D PAP AND HPV REGAR DLESS image guided Pap, HPV regardless of Pap result SEE RESULT S BELOW abnormal CASE REPOR T: Cytol ogy Gynec ologi carlos Repor t Case: [id number] Autho rizin g Provi margarita: Tyler Rodriguez Colle cted: 08/27 1337 MIRROR INSTALLER Order ing Locat ion: [place] Patho gaston Recei kayleen: 08/28 0233 First Scree n: Papito mcdonald, Mohisaiah ed, CT Patho logis t: Anneliese Mandel MD Speci men: Bridgett hamilton Pap - Image d, Cervi x STATE MENT OF ADEQU ACY: Satis facto ry for evalu ation Trans forma tion zone compo nent absen t FINAL DIAGN OSIS: Epith elial Cell Abnor malit y, Squam ous Cell: Atypi carlos Squam ous Cells of Undet ermin ed Shannoni samson myers (ASC- [place]). Elect remberto curiel by Anneliese Mandel MD on 023 at 8:56 AM ----- ----- ----- ----- ----- ----- ----- ----- ----- ----- ----- ----- ----- ----- ----- ----- ----- ---- HPV RESUL TS: HPV mRNA E6/E7 : No HPV mRNA Detec mindi NOTE: This high risk HPV mRNA assay detec ts fourt een high- risk HPV types (16, 18, 31, 33, 35, 39, 45, 51, 52, 56, 58, 59, 66, 68) witho ut diffe renti ation . COMME NT: Note: This speci men was revie wed by a Cytot echno logis t and/o r Patho logis t (as indic ated in this repor t) after evalu ation using the Thinp rep Imagi ng Syste m. CLINI CARLOS INFOR MATIO N: Menst rual Statu s: LMP (if appli cable ): Clini carlos Histo ry/Pr eviou s Pap: Type of Neopl ernesto (if appli cable ): Signi fican t Clini carlos Findi ngs: Other Histo ry: Hormo kaushal (if appli cable ): SUGGE STED FOLLO W-UP: Follo w up as jacquelyn nted, based on curre nt guide lines and indiv idual patie nt consi derat ions. Not Available [facility] (Lab) [address], [place], [address], 08/31/2022 09:59:30 11/04/19 24 11/04/2023 IMAGE GUIDE D PAP AND HPV REGAR DLESS image guided Pap, HPV regardless of Pap result SEE RESULT S BELOW CASE REPOR T: Cytol ogy Gynec ologi carlos Repor t Case: [id number] Autho rimervat g Provi margarita: Tyler Rodriguez Colle cted: 11/03 1544 MIRROR INSTALLER Order ing Locat ion: [place] Patho logy Recei kayleen: 11/04 0554 First Scree n: Marielena Prather Rescr een: Kimberly Mccann, CT Speci men: Screclara hamilton Pap - Image d, Cervi x STATE MENT OF ADEQU ACY: Satis facto ry for evalu ation Trans forma tion zone compo nent prese nt FINAL DIAGN OSIS: Negat jennifer for Intra epith elial Nelli lynn or Trinity delgado (NIL) . Elect remberto blue d by Kimberly Mccann, CT on 2023 at 4:06 PM ----- ----- ----- ----- ----- ----- ----- ----- ----- ----- ----- ----- ----- ----- ----- ----- ----- ---- HPV RESUL TS: HPV mRNA E6/E7 : No HPV mRNA Detec mindi NOTE: This high risk HPV mRNA assay detec ts fourt een high- risk HPV types (16, 18, 31, 33, 35, 39, 45, 51, 52, 56, 58, 59, 66, 68) witho ut diffe renti ation . COMME NT: This speci men was revie wed by a Cytot echno logis t and/o r Patho logis t (as indic ated in this repor t) after evalu ation using the Thinp rep Imagi ng Syste m. CLINI CARLOS INFOR MATIO N: Menst rual Statu s: LMP (if appli cable ): Clini carlos Histo ry/Pr eviou s Pap: Type of Neopl ernesto (if appli cable ): Signi fican t Clini carlos Findi ngs: Other Histo ry: Hormo kaushal (if appli cable ): PAP EDUCA AMANDA L NOTE: The Pap Test is a scree joy test with an inher ent false negat jennifer rate. Liqui d-bas ed sampl ing may decre ase, but will not elimi naveed, false negat jennifer resul ts. A negat jennifer resul t does not precl ude the prese nce and/o r devel opmen t of disea se, since the prese nce of abnor mal cells in the sampl e depen ds on the locat ion of the lesio n and sampl ing techn ique. Rox nued regul ar scree joy is the best metho d of cance r preve ntion . If repor mindi cytol ogic findi ng do not corre late with physi carlos and/o r histo rical findi ngs, furth er inves tigat ion is recom makayla d, as clini mariann valladares nted. Not Available [facility] (Lab) [address], [place], [address], 11/09/2023 17:11:08 11/18/19 25 11/17/2024 IMAGE GUIDE D PAP AND HPV REGAR DLESS image guided Pap, HPV regardless of Pap result SEE RESULT S BELOW CASE REPOR T: Cytol ogy Gynec ologi carlos Repor t Case: [id number] Autho francisco g Provi margarita: Kristine Ordaz, FRANCESCA Colle cted: 11/17 0953 Order ing Locat ion: [place] Patho logy Recei kayleen: 11/18 0128 First Scree n: Zulema Griffin , CT Rescr een: Sandra Alarcon , CT Speci men: Scree joy Pap - Image d, Cervi x STATE MENT OF ADEQU ACY: Satis facto ry for evalu ation Trans forma tion zone compo consuelo prese nt Denice gonzales ring infla mmati on prese nt. ----- ----- ----- ----- ----- ----- ----- ----- ----- ----- ----- ----- ----- ----- ----- ----- ----- ---- FINAL DIAGN OSIS: Negat jennifer for Intra epith eliramandeep lynn or Trinity delgado ([facility]) . Elect remberto curiel by Sandra Alarcon , CT on 025 at 1717 CDT ----- ----- ----- ----- ----- ----- ----- ----- ----- ----- ----- ----- ----- ----- ----- ----- ----- ---- HPV RESUL TS: HPV mRNA E6/E7 : No HPV mRNA Detec mindi NOTE: This high risk HPV mRNA assay detec ts fourt een high- risk HPV types (16, 18, 31, 33, 35, 39, 45, 51, 52, 56, 58, 59, 66, 68) witho ut diffe renti ation . COMME NT: This speci men was revie wed by a Cytot echno logis t and/o r Patho logis t (as indic ated in this repor t) after evalu ation using the Thinp rep Imagi ng Syste m. CLINI CARLOS INFOR MATIO N: Menst rual Statu s: LMP (if appli cable ): Clini carlos Histo ry/Pr eviou s Pap: Type of Neopl ernesto (if appli cable ): Signi fican t Clini carlos Findi ngs: Other Histo ry: Hormo kaushal (if appli cable ): PAP EDUCA AMANDA L NOTE: The Pap Test is a scree joy test with an inher ent false negat jennifer rate. Liqui d-bas ed sampl ing may decre ase, but will not elimi naveed, false negat jennifer resul ts. A negat jennifer resul t does not precl ude the prese nce and/o r devel opmen t of disea se, since the prese nce of abnor mal cells in the sampl e depen ds on the locat ion of the lesio n and sampl ing techn ique. Rox nued regul ar scree joy is the best metho d of cance r preve ntion . If repor mindi cytol ogic findi ng do not corre late with physi carlos and/o r histo rical findi ngs, furth er inves tigat ion is recom makayla d, as clini mariann valladares nted. Not Available [facility] (Lab) [address], [place], [address], 11/22/2024 18:22:16 07/15/20 21 11/29/2020 MAMMO , diagn ostic , unila teral No observ ation record ed. [facility] [address], [place], [address], 07/23/2021 07:01:59 Result Notes None recorded. Problems Name Problem SNOMED Code Status Onset Date Resolution Date Notes Provider Name and Address Organization Details Recorded Time Screenin g for malignan t neoplasm of rectum Completed 201703/05/2021 Encounte r for screenin g for malignan t neoplasm of rectum;R ecorded Elsewher e: No Locat ion: [facility] S ource: EHR Treasury Management Sales Consultant wes: N Jacy ce ID: 0001 Fransico lable Time: 05:45:00 PM Mariah Guzmán [place], [place] - [facility] 14:09:[address] Concept Completed 201803/05/2021 Encntr for general adult medical exam w/o abnormal findings ;Recorde d Elsewher e: No Locat ion: [facility] S ource: EHR Treasury Management Sales Consultant wes: N Jacy ce ID: 0001 Fransico lable Time: 09:00:00 AM Mariah Guzmán [facility] 14:09:40 Low grade squamous intraepi thelial lesion on cervical Papanico laou smear [id number] 9105 Completed 201707/14/2021 Low grade intrepit h lesion cyto smr crvx (LGSIL); Recorded Elsewher e: No Locat ion: [facility] S ource: EHR Treasury Management Sales Consultant wes: N Jacy ce ID: 0001 Fransico lable Time: 02:00:00 PM Cindy Panchal [facility] 15:49:28 Finding of menstrua l bleeding Completed 201711/12/2020 Menorrha ella;Kevin rded Elsewher e: No Locat ion: [facility] S ource: EHR Treasury Management Sales Consultant wes: N Jacy ce ID: 0001 Fransico lable Time: 11:00:00 AM Fran Abarca MD [address], [place], [address], [place] [facility] 17:08:[address] Concept Completed 201403/05/2021 Encounte r for routine nurse outreach case manager exam w/o abnormal finding; Recorded Elsewher e: No Locat ion: [facility] S ource: EHR Treasury Management Sales Consultant wes: N Jacy ce ID: 0001 Fransico lable Time: 09:30:00 AM Mariah Guzmán [facility] 1 14:09:42 Bleeding [id number] Completed 201711/12/2020 Abnormal uterine and vaginal bleeding , unspecif ied;Kevin rded Elsewher e: No Locat ion: [facility] S ource: EHR Treasury Management Sales Consultant wes: N Jacy ce ID: 0001 Fransico lable Time: 11:00:00 AM Fran Abarca MD [address], [place], [address], [facility] 1 17:08:28 Multigra lv of advanced maternal age [id number] Completed 201111/12/2020 Other advanced maternal age, antepart um conditio n or complica tion;Rec orded Elsewher e: No Locat ion: [facility] S ource: EHR Treasury Management Sales Consultant wes: N Jacy ce ID: 0001 Fransico lable Time: 10:00:00 AM Fran Abarca MD [address], [place], [address], [facility] 1 17:08:47 Pelvic and perineal pain [id number] Completed 201803/05/2021 Pelvic and perineal pain;Rec orded Elsewher e: No [facility]at ion[facility]: EHR Treasury Management Sales Consultant wes: N Jacy ce ID: 0001 Fransico lable Time: 02:30:00 PM Mariah willis, [facility] 1 14:09:09 Routine antenata l care Completed 201103/05/2021 Supervis ion of other normal pregnanc y;Record ed Elsewher e: No Locat ion: [facility] S ource: EHR Treasury Management Sales Consultant wes: N Chaseti ce ID: 0001 Fransico lable Time: 08:30:00 AM Mariah willis, [facility] 1 14:09:32 Evaluati on finding Completed 201711/12/2020 Hematuri a, unspecif ied;Kevin rded Elsewher e: No Locat ion: [facility] S ource: EHR Treasury Management Sales Consultant wes: N Jacy ce ID: 0001 Fransico lable Time: 11:00:00 AM Fran Abarca MD [address], [place], [address], [facility] 1 17:08:25 Screenin g for malignan t neoplasm of cervix Completed 201103/05/2021 Screenin g for malignan t neoplasm s of the cervix;R ecorded Elsewher e: No Locat ion: [facility] S ource: EHR Treasury Management Sales Consultant wes: N Practi ce ID: 0001 Fransico lable Time: 08:30:00 AM Mariah willis [facility] 14:09:35 Speciali zed medical examinat ion Completed 201103/05/2021 Gynecolo gical Examinat ion;Kevin rded Elsewher e: No Locat ion: [facility] S ource: EHR [employer] Management Sales Consultant wes: N Practi ce ID: 0001 Fransico lable Time: 08:30:00 AM Mariah willis [facility] 14:09:44 Pre-surg clover evaluati on Completed 201203/05/2021 Pre-oper ative examinat ion, unspecif ied;Kevin rded Elsewher e: No Locat ion: [facility] S ource: EHR Treasury Management Sales Consultant wes: N Practi ce ID: 0001 Fransico lable Time: 10:02:09 AM Mariah willis [facility] 14:09:19 Evaluati on finding [id number] Completed 201811/12/2020 Oth abn and inconclu sive findings on dx imaging of breast;R ecorded Elsewher e: No Locat ion: [facility] S ource: EHR [employer] Management Sales Consultant wes: N Practi ce ID: 0001 Fransico lable Time: 01:22:31 PM Fran Abarca MD [address], [place], [address], [facility] 17:08:23 Postcoit al finding [id number] Completed 201403/05/2021 Postcoit al and contact bleeding ;Recorde d Elsewher e: No Locat ion: [facility] S ource: EHR [employer] Management Sales Consultant wes: N Practi ce ID: 0001 Fransico lable Time: 08:15:00 AM Mariah willis [facility] 14:09:11 Pregnanc y test negative [id number] Completed 201103/05/2021 Pregnanc y examinat ion or test, negative result;R ecorded Elsewher e: No Locat ion: [facility] S ource: EHR [employer] Management Sales Consultant wes: N Practi ce ID: 0001 Fransico lable Time: 11:00:00 AM Mariah willis [facility] 14:09:22 Procedur e on genitour inary system Completed 201203/05/2021 Steriliz ation;Pr actice ID: 0001 Mariah willis [facility] 14:09:30 Postoper ative follow-u p visit Completed 201303/05/2021 Follow-u p examinat ion, followin g other surgery; Practice ID: 0001 Mariah willis, [facility] 14:09:14 Adult health examinat ion Completed 201311/12/2020 Routine general medical examinat ion at a health care facility ;Practic e ID: 0001 Fran Abarca MD [address], [place], [address], [facility] 17:08:36 Postpart um care Completed 201103/05/2021 Routine postpart um follow-u p;Record ed Elsewher e: No Locat ion: [facility] S ource: EHR Treasury Management Sales Consultant wes: N Practi ce ID: 0001 Fransico lable Time: 11:00:00 AM Mariah willis [facility] 14:09:17 Pregnanc y test positive [id number] Completed 201103/05/2021 Pregnanc y examinat ion or test, positive result;R ecorded Elsewher e: No Locat ion: [facility] S ource: EHR Treasury Management Sales Consultant wes: N Chaseti ce ID: 0001 Fransico lable Time: 08:30:00 AM Mariah willis [facility] 14:09:24 Prematur e rupture of membrane s with antenata l problem [id number] Completed 201103/05/2021 Prematur e rupture of membrane s, antepart um;Pract ice ID: 0001 Mariah willis [facility] 14:09:27 Problem Notes None recorded. Procedures Surgical History Date Name Laterality Status Provider Name and Address Organization Details Recorded Time 11/04/19 24 Date of Last Pap Smear completed Ana Maria Hawley [facility] 12/30/2023 11:19:39 08/23/19 24 Date of Last Mammogram completed Laquita Aguillon [facility] 11/17/2024 10:14:28 08/23/19 22 Date of Last Colonoscopy completed Sheron Prather [facility] 08/27/2022 11:21:44 06/05/20 20 Hysteroscopy completed Noemi Barragan CNM [address], [place], [address], [facility] 06/05/2020 10:04:28 06/05/20 20 Hysteroscopy completed Barbara Granados [facility] 06/05/2020 09:34:56 11/10/19 18 Colposcopy completed Cindy Panchal [facility] 07/15/2021 12:24:37 09/12/19 14 Laparoscopy completed Barbara Granados [facility] 05/30/2020 13:45:14 Imaging Results Imaging Date Name Status LastModified by Organiz ation Details LastModified Time 11/29/2020 MAMMO, diagnostic, unilateral completed [facility] [address], [place], [address], 07/23/2021 07:01:59 Procedure Notes None recorded. Medical Equipment None Reported. Allergies Allergen ID Allergen Name Allergen Category Reaction Reaction Severity Criticality Documentation Date Start Date Code Code System Note Provider Name and Address Organization Details Recorded Time 90997 diphenhyd ramine hydrochlo ride medicatio n Not available Not available Not available 07/15/2021 1362 RxNorm Laquita Aguillon [facility], [facility] 5 09:18:12 2142 shellfish derived food,medi cation Not available Not available Not available 05/16/2020 67894 UNMary Troncoso [facility] 0 12:45:09 82364 Substance with sulfonami de structure and antibacte rial mechanism of action (substanc e) medicatio n diarrhea severe Not available 11/17/2024 69372 8003 SNOMED Laquita Aguillon [facility], [facility] 5 09:18:12 Medications Name Sig Start Date Stop Date Status Note LastModified by Organization Details LastModified Time celecoxib 200 mg capsule take 1 capsule the night before procedur e and 2 the morning of procedur e 06/13 completed Not Available Not Available Not Available pilocarpi ne 5 mg tablet TAKE 1 TABLET BY MOUTH AT BEDTIME 07/15 completed Not Available Not Available Not Available prednison e 10 mg tablet take 1 tablet by oral route every day 04/19 completed Prescrib ed Elsewher e: Yes Loca tion: [facility] odify By: [email or web address] trick En counter DateTime : 07/13/20 12 11:00:00 AM Not Available Not Available Not Available paroxetin e 10 mg tablet TAKE 1 TABLET BY MOUTH EVERY DAY active Not Available Not Available No t Available clindamyc in HCl 300 mg capsule take 1 capsule (300MG) by oral route every 6 hours 07/13 completed Prescrib ed Elsewher e: No [facility]at [facility] By: [email or web address] trick En counter DateTime : 04/27/20 12 01:30:00 PM Not Available Not Available Not Available cetirizin e 10 mg tablet 05/16 completed Not Available Not Available Not Available azithromy bernadette 250 mg tablet 08/27 completed Not Available Not Available Not Available hydrocodo ne 5 mg-acetam inophen 325 mg tablet 06/13 completed Not Available Not Available Not Available acyclovir 400 mg tablet TAKE 1 TABLET BY MOUTH THREE TIMES DAILY FOR 5 DAYS 11/17 completed Not Available Not Available Not Available Reglan 10 mg tablet take 1 tablet (10MG) by oral route 4 times every day 30 minutes before meals and at bedtime 04/19 completed Prescrib ed Elsewher e: No Locat ion: [facility] odify By: [email or web address] trick En counter DateTime : 07/13/20 12 11:00:00 AM Not Available Not Available Not Available ondansetr on 8 mg disintegr ating tablet take 1 tablet 2 hours before procedur e 06/13 completed Not Available Not Available Not Available pantopraz ole 20 mg tablet,de layed release 11/17 completed Not Available Not Available Not Available Metrogel Vaginal 0.75 % (37.5 mg/5 gram) insert 1 applicat orful by vaginal route for 5 nights at bedtime 08/12 completed Prescrib ed Elsewher e: No Locat ion: [facility] odify By: corine beckford DateTime : 05/12/20 18 04:16:55 PM Not Available Not Available Not Available methotrex ate sodium 2.5 mg tablet TAKE 3 TABLETS BY MOUTH EVERY 7 DAYS 11/03 completed Not Available Not Available Not Available pantopraz ole 40 mg tablet,de layed release 11/03 completed Not Available Not Available Not Available Rituxan 10 mg/mL concentra te,intrav enous 11/17 completed Not Available Not Available Not Available promethaz ine 25 mg tablet TAKE 1/2 TABLET BY MOUTH EVERY 6 HOURS NEEDED FOR NAUSEA 08/27 completed Not Available Not Available Not Available progester one micronize d 200 mg capsule TAKE 1 CAPSULE BY MOUTH EVERY DAY FOR 12 DAYS 02/17 completed Not Available Not Available Not Available omeprazol e 20 mg capsule,d elayed release 08/27 completed Not Available Not Available Not Available folic acid 1 mg tablet TAKE 1 TABLET BY MOUTH EVERY DAY 11/03 completed Not Available Not Available Not Available Cut Off 10 mg-325 mg tablet take 1 tablet by oral route every 4 - 6 hours as needed for pain 05/03 completed Prescrib sharon Durand e: No Locat ion: [facility] odify By: [email or web address] trick En counter DateTime : 09/20/19 08:53:46 AM Not Available Not Available Not Available ergocalci ferol (vitamin D2) 1,250 mcg (50,000 unit) capsule TAKE 1 CAPSULE BY MOUTH EVERY WEEK 08/27 completed Not Available Not Available Not Available diazepam 10 mg tablet 06/13 completed Not Available Not Available Not Available hydroxych loroquine 200 mg tablet TAKE 1 TABLET BY MOUTH TWICE DAILY active Not Available Not Available No t Available polyethyl robin glycol 3350 17 gram/dose oral powder TAKE DIRECTED BY THE OFFICE 08/27 completed Not Available Not Available Not Available estradiol 0.01% (0.1 mg/gram) vaginal cream INSERT 1 GRAM VAGINALL Y 2 TIMES EVERY WEEK AT BEDTIME active Not Available Not Available No t Available methylpre dnisolone 4 mg tablets in a dose pack FOLLOW PACKAGE DIRECTIO NS 07/15 completed Not Available Not Available Not Available albuterol sulfate HFA 90 mcg/actua tion aerosol inhaler INHALE 2 PUFFS BY MOUTH EVERY 6 HOURS NEEDED 08/27 completed Not Available Not Available Not Available fluticaso ne propionat e 50 mcg/actua tion nasal spray,barbara pension SHAKE LIQUID AND USE 1 SPRAY IN EACH NOSTRIL TWICE DAILY 11/17 completed Not Available Not Available Not Available clotrimaz ole 1 % topical cream APPLY TOPICALL Y TO THE AFFECTED AREA TWICE DAILY active Not Available Not Available No t Available metronida zole 0.75 % topical gel 08/27 completed Not Available Not Available Not Available doxycycli ne hyclate 100 mg tablet TAKE 1 TABLET BY MOUTH EVERY 12 HOURS FOR 7 DAYS 11/03 completed Not Available Not Available Not Available amoxicill in 500 mg-potass ium clavulana te 125 mg tablet TAKE 1 TABLET BY MOUTH EVERY 12 HOURS FOR 5 DAYS 11/17 completed Not Available Not Available Not Available iron 18 mg tablet 04/19 completed Prescrib ed Elsewher e: Yes Loca tion: [facility] odify By: [email or web address] trick En counter DateTime : 07/13/20 12 11:00:00 AM Not Available Not Available Not Available Vitamin 27 mg iron-0.8 mg tablet take 1 tablet by oral route every day 04/19 completed Prescrib ed Elsewher e: No Locat ion: [facility] odify By: [email or web address] trick En counter DateTime : 02/26/20 12 08:30:00 AM Not Available Not Available Not Available Vitamin D3 25 mcg (1,000 unit) capsule 1 capsule every day by oral route. 2020 active Not Available Not Available Not Avai lable metoprolo l tartrate 25 mg tablet TAKE 1/2 TABLET BY MOUTH TWICE DAILY 02/17 completed Not Available Not Available Not Available nitrofura ntoin monohydra te/macroc rystals 100 mg capsule TAKE 1 CAPSULE BY MOUTH EVERY 12 HOURS WITH FOOD FOR 5 DAYS 08/27 completed Not Available Not Available Not Available Lutera (28) 0.1 mg-20 mcg tablet take 1 tablet by oral route every day 09/25 completed Prescrib ed Elsewher e: No Locat ion: [facility] odify By: [email or web address] trick En counter DateTime : 04/19/20 13 09:30:00 AM Not Available Not Available Not Available B Complex active Not Available Not Brielle ilable Not Available Rituxan active Not Available Not Avail able Not Available multivita min 08/27 completed Not Available Not Available Not Available Promacta 25 mg tablet 08/27 completed Not Available Not Available Not Available Promacta 50 mg tablet 08/27 completed Not Available Not Available Not Available Vitamin D 5,000 unit tablet active Not Available Not Available Not Available Norlyda 0.35 mg tablet TAKE 1 TABLET BY MOUTH EVERY DAY 08/27 completed Not Available Not Available Not Available Bon Guerin ce Pack 4 mcg vaginal insert Insert 1 vaginal insert twice a week by vaginal route at bedtime for 90 days. 11/17 completed Not Available Not Available Not Available Vitals Date Recorded Body height Body mass index (BMI) Body weight Systolic blood pressure Diastolic blood pressure Provider Name and Address Organization Details Last Updated DateTime 07/15/2021 160.02 cm 29.8 kg/m2 69038.52 g 106 mm[Hg] 65 mm[Hg] Cindy Panchal [facility] 1 12:39:30 Date Recorded Body height Body mass index (BMI) Body weight Systolic blood pressure Diastolic blood pressure Provider Name and Address Organization Details Last Updated DateTime 08/27/2022 160.02 cm 33.1 kg/m2 03186.77 g 122 mm[Hg] 82 mm[Hg] Sheron Prather [facility] 3 11:21:03 Date Recorded Body height Body mass index (BMI) Body weight Systolic blood pressure Diastolic blood pressure Provider Name and Address Organization Details Last Updated DateTime 11/04/2023 160.02 cm 29.6 kg/m2 45167.93 g 103 mm[Hg] 74 mm[Hg] Alyse Terrell [facility] 4 14:30:43 Date Recorded Body height Body mass index (BMI) Body weight Systolic blood pressure Diastolic blood pressure Provider Name and Address Organization Details Last Updated DateTime 12/30/2023 160.02 cm 29.6 kg/m2 14309.93 g 107 mm[Hg] 69 mm[Hg] Ana Maria Hawley [facility] 4 11:18:43 Date Recorded Body height Body mass index (BMI) Body weight Systolic blood pressure Diastolic blood pressure Provider Name and Address Organization Details Last Updated DateTime 11/17/2024 160.02 cm 32.6 kg/m2 46169.71 g 106 mm[Hg] 72 mm[Hg] Laquita Aguillon [facility] 5 10:13:43 Social History Question Answer Notes LastModified by Organizat ion Details LastModified Time Tobacco Smoking Status Never Smoker Gloria Gordillo [facility] 07/15/2021 12:24:36 Do You Have An Advance Directive? No Information n ot available 11/12/2020 Are You Blind Or Do You Have Difficulty Seeing? No Information n ot available 11/12/2020 What Is Your Level Of Caffeine Consumption? Moderate Information not available 11/12/2020 How Much Tobacco Do You Chew? None Information not available 11/12/2020 In The 14 Days Before Symptom Onset, Have You Had Close Contact With A Laboratory-confirm ed COVID-19 While That Case Was Ill? No Information n ot available 11/12/2020 In The 14 Days Before Symptom Onset, Have You Had Close Contact With A Person Who Is Under Investigation For COVID-19 While That Person Was Ill? No Information not available 11/12/2020 Have You Been To An Area Known To Be High Risk For COVID-19? No Information not available 11/12/2020 Are You Deaf Or Do You Have Serious Difficulty Hearing? No Information not available 11/12/2020 What Type Of Diet Are You Following? REGULAR Information n ot available 11/12/2020 What Is The Highest Grade Or Level Of School You Have Completed Or The Highest Degree You Have Received? [id number] Information not available 11/12/2020 Are There Any Guns Present In Your Home? No Information not available 11/12/2020 What Was The Date Of Your Most Recent Tobacco Screening? 06/05/2020 [email or web address] Information not available 07/15/2021 Do You Use Protection During Sex? No Information not available 11/12/2020 Do You Use Your Seat Belt Or Car Seat Routinely? Yes Information not available 11/12/2020 Do You Have Smoke And Carbon Monoxide Detectors In Your Home? Yes Information not available 11/12/2020 How Much Tobacco Do You Smoke? No [email or web address] Information not available 05/31/2020 Do You Use Sunscreen Routinely? Yes Information not available 11/12/2020 Have You Used IV Drugs? No Information not available 11/12/2020 Sex: Unknown Functional Status Question Answer Note LastModified by Organizat ion Details LastModified Time Do you use any illicit or recreational drugs? No Information not available 11/12/2020 What is your level of alcohol consumption? Occasional [email or web address] Information not available 05/31/2020 Do you or have you ever used smokeless tobacco? Never used smokeless tobacco [email or web address] Information not available 07/15/2021 Are you able to walk? 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 Never used electronic cigarettes [email or web address] Information not available 07/15/2021 What is your exercise level? Occasional [email or web address] Information not available 05/31/2020 Mental Status Question Answer Note LastModified by Organization D etails LastModified Time Do you feel stressed (tense, restless, nervous, or anxious, or unable to sleep at night)? [id number] Information not available 11/12/2020 Family History Relationship Description Onset Age of this Age Resolved Age Notes LastModified by Organization Details LastModified Time Mother Malignant tumor of breast [email or web address] Not available 2020 12:41:07 Medical History Condition Response Autoimmune disease Y History of STI Y History of abnormal pap Y Deep Vein Thrombosis N Hematologic disorders Y Gynecological History Statement/Question Response Abnormal Pap Yes Flow Moderate Date of Last Mammogram 08/23/2023 Date of LMP 06/27/2021 N On BCP's at Conception? N STIs/STDs N Was last menstrual period normal Y HPV Vaccine N Colposcopy 11/09/2017 Duration of Flow (days) 7 Current Control Method Tubal Ligat ion 13 Age at First Child 21 If Post Menopausal, Age at Menopause 44 Date of Last Colonoscopy 08/23/2021 Sexually Active? Y Menses Monthly N Age of first menstrual cycle 13 Date of Last Pap Smear 11/04/2023 Sexual Problems? Y LMP Approximate N Obstetrics History GPAL:G 4 P 3 0 1 3 Type Value Full Term 3 Spontaneous 1 Living 3 Total 4 Past Encounters Encounter ID Performer Location Encounter Start Date Encounter Closed Date Diagnosis/Indication Diagnosis SNOMED-CT Code Diagnosis ICD10 Code Diagnosis Note [id number] Krystyna Carrillo [facility] [address],[place] [address] 05/16/2020 12:36:48 05/16/2020 13:06:44 Abnormal uterine bleeding [id number] 9100 N93.9 Today's exam is wnl. We discussed keeping a menstrual diary for the next 2-3mos to see if this instance of period irregulari ty is an isolated incident since she does not have a Hx of AUB/irregu lar periods. Under a lot of stress which can also play a role, in the perimenopa use age group. Patient requested TVUS for reassuranc e there is no issue. Updated labs completed. Time spent in visit is a total of 15 mins with at least 50% of visit consisting of counseling and review of plan of care. [id number] Fran Abarca MD [place] [address],[place] [address] 05/22/2020 12:16:53 05/22/2020 13:20:03 Menorrhagia 666364117 N92.0 [id number] Noemi Barragan [facility] [address],[place] [address] 05/31/2020 12:48:08 05/31/2020 14:50:39 Irregular periods 06844154 N92.6 [id number] Noemi Barragan [facility] [address],[place] [address] 06/05/2020 09:23:42 06/05/2020 17:33:33 Irregular periods 68146930 N92.6 [id number] Krystyna Carrillo [facility] [address],[place] [address] 06/13/2020 11:06:42 06/13/2020 12:37:18 Gynecologic examination 82241008 Z01.419 Suggested Calcium with Vitamin D 1200-1500m g daily. Patient advised to get an annual flu shot in the fall and she could obtain at [facility] or [facility] take care clinic. Also to obtain TDap vaccinatio n if you have not had one in the last 10 years. Recommend yearly mammograms . Encouraged monthly self breast exams. Encourage safe sexual practices, to use condoms and limit partners if not already in a monogamous relationsh ip. Engage in daily exercise of low impact aerobic exercise 45-60 minutes 4-5 times weekly. Avoid tobacco and illicit drugs as well as using moderation with alcohol intake less than 1-2 8 oz beverages daily. This lifestyle behavior pattern will lead to less health conditions and longer life span. If BMI greater than 25 weight watchers or dietary consult advised. All questions have been answered. Patient appears to understand informatio n, but if you have any questions please call or respond to this email. Pap/HPV updated Abn pap 2018 LGSIL with colpo BERNADETTE-1 Pap 2019 nl but +HR/18/45 HPV Declined need std screening No issues or concerns today. Mammo ordered Polyp of corpus uteri 11 074060 N84.0 Post-op doing well from procedure a week ago. Minimal to no light pink vag spotting No pain or other side effects. We discussed expected outcomes & she is aware of when to call if issues arise. We reviewed pathology which was benign. All questions answered & understand ing verbalized . [id number] Fran Abarca MD [place] [address],[facility] [place] [place] [address] 11/12/2020 15:47:16 11/12/2020 16:51:40 Abnormal uterine bleeding [id number] 9100 N93.9 [id number] Fran Abarca MD [place] [address],[facility] [place] [place] [address] 11/12/2020 15:47:52 11/12/2020 17:33:36 Menorrhagia [id number] N92.0 this patient is a 45-year-ol d female with severe menorrhagi a. Until recently she has had regular periods. At the end of last year they became less predictabl e. For the last several weeks she has had very heavy bleeding. She may have missed a period in September. She denies any pain. She is passing large clots. She has changing tampons and pads hourly. Patient was recently diagnosed with Sjogren's and is known to have ITP. She was in the emergency department yesterday. Her blood counts and platelet counts were normal. We reviewed her ultrasound for today. talked about treatments . I feel she perhaps avoid combined oral contracept jennifer pills. With a lengthy conversati on about the menstrual cycle, anovulator y bleeding, treatment options. Risks. We agreed to treat with micronized progestero ne. She will take micronized progestero ne for 12 days. She does not experience resolution of her bleeding she will contact us. [id number] Fran Abarca MD [place] [address] [address] 02/17/2021 15:59:43 02/17/2021 17:07:55 Amenorrhea 81896414 N91.2 This patient is a 45-year-ol d female presents for follow-up on ovarian cyst. Patient also has 4 months of no vaginal bleeding. Prior to that she had several months of abnormal uterine bleeding and menorrhagi a. Ultrasound revealed unchanged ovarian cyst. We agreed to follow her symptoms. We talked about amenorrhea . Talked about her ultrasound results. We talked about protecting the endometriu m. We agreed to a laboratory evaluation her her amenorrhea . She will return after the laboratory evaluation discussed observatio n or treatment. [id number] Fran Abarca MD [place] [address] [address] 02/17/2021 15:59:23 02/17/2021 16:29:23 Cyst of left ovary [id number] 0319897 N83.292 [id number] Fran Abarca MD [place] [address] [address] 03/05/2021 13:57:24 03/05/2021 14:41:51 Low back pain 204109318 M54.5 Menopause 715937355 Z78. 0 This patient is a 45-year-ol d female presents for follow-up on laboratory work. She has hypoestrog enism and elevated Samanta FSH and LH. We discussed her symptoms. She has no symptoms. She is amenorrhei c for about 6 months. Talked about hormone replacemen t therapy. I informed her that Estring placement therapy is not used for the prevention of disease. We talked about risks and benefits of hormone replacemen t therapy. We agreed to follow-up on the labs in confirm the status of her hypoestrog enism. We spent more than 15 minutes face-to-fa ce discussing this complex topic [id number] Fran Abarca MD [place] [address],[facility] [place] [place] [address] 04/30/2021 10:09:42 05/01/2021 10:21:48 Abnormal uterine bleeding [id number] 9100 N93.9 this patient is a 45-year-ol d female presents for follow-up on menopause and hormone concerns. The patient had labs originated that were consistent with menopause. She has not had any bleeding for many months. She was later evaluated for abnormal bleeding and had a very elevated estradiol. Her estradiol was over 500. that value was repeated and found to be in A low normal range. her FSH and LH have been normal but also suggestive of menopause at different times. The patient has lupus and a family history of clotting disorder. We agreed to use progestin only control pills to control her bleeding. She return in 2 months to follow-up on her bleeding. She is likely in menopause. The. Elevated estradiol cannot be explained. this was possibly a reaction to some very high FSH values. [id number] [facility] [address] [address] 07/15/2021 12:24:16 07/15/2021 13:42:18 Gynecologic examination [id number] Z01.419 Suggested Calcium with Vitamin D 1200-1500m g daily. Patient advised to get an annual flu shot in the fall and she could obtain at [facility] or [facility] take care clinic. Also to obtain TDap vaccinatio n if you have not had one in the last 10 years. Recommend yearly mammograms . Encouraged monthly self breast exams. Encourage safe sexual practices, to use condoms and limit partners if not already in a monogamous relationsh ip. Engage in daily exercise of low impact aerobic exercise 45-60 minutes 4-5 times weekly. Avoid tobacco and illicit drugs as well as using moderation with alcohol intake less than 1-2 8 oz beverages daily. This lifestyle behavior pattern will lead to less health conditions and longer life span. If BMI greater than 25 weight watchers or dietary consult advised. All questions have been answered. Patient appears to understand informatio n, but if you have any questions please call or respond to this email. Pap/HPV updated Abn pap 2018 LGSIL with colpo BERNADETTE-1 Pap 2019 nl but +HR/18/45 HPV Declined need std screening No issues or concerns today. Mammo completed at [facility] 06/2021-Wi ll have report transferre d. Irregular periods 962863 07 N92.6 Hx of AUBSeen nd recommende d to start POP for extended cycle bleeding.F SH/LH seems to rotate b/t reproducti ve levels back to low menopausal ranges.Had Elevated Estradiol level but this has since returned WNL.Did not start POP given.Has been keeping menstrual diary and flow/durat ion of cycles seems to have returned to her norm.Frequ ency is q1-2mos.I encouraged her to continue her diary & f/u as planned with . [id number] Krystyna Carrillo , [facility] [address] [address] 08/27/2022 11:05:28 08/27/2022 15:59:14 Gynecologic examination 44106004 Z01.419 Z11.51 Suggested Calcium with Vitamin D 1200-1500m g daily. Patient advised to get an annual flu shot in the fall and she could obtain at [facility] or [facility] care clinic. Also to obtain TDap vaccinatio n if you have not had one in the last 10 years. Recommend yearly mammograms . Encouraged monthly self breast exams. Encourage safe sexual practices, to use condoms and limit partners if not already in a monogamous relationsh ip. Engage in daily exercise of low impact aerobic exercise 45-60 minutes 4-5 times weekly. Avoid tobacco and illicit drugs as well as using moderation with alcohol intake less than 1-2 8 oz beverages daily. This lifestyle behavior pattern will lead to less health conditions and longer life span. If BMI greater than 25 weight watchers or dietary consult advised. All questions have been answered. Patient appears to understand informatio n, but if you have any questions please call or respond to this email.Pap/ hpv sentSTD Screen declinedGe netic Screen discussedC jann Screen PCPDexa Screen naRoutine Labs PCPMammo Ordered Secondary amenorrhea 156 [id number] N91.1 Will determine if early menopause or further evaluation is required for this finding. [id number] Krystyna Carrillo , [facility] [address] [address] 11/04/2023 14:15:42 11/04/2023 15:09:06 Gynecologic examination [id number] Z01.419 Z11.51 Suggested Calcium with Vitamin D 1200-1500m g daily. Patient advised to get an annual flu shot in the fall and she could obtain at [facility] or [facility]. Also to obtain TDap vaccinatio n if you have not had one in the last 10 years. Recommend yearly mammograms . Encouraged monthly self breast exams. Encourage safe sexual practices, to use condoms and limit partners if not already in a monogamous relationsh ip. Engage in daily exercise of low impact aerobic exercise 45-60 minutes 4-5 times weekly. Avoid tobacco and illicit drugs as well as using moderation with alcohol intake less than 1-2 8 oz beverages daily. This lifestyle behavior pattern will lead to less health conditions and longer life span. If BMI greater than 25 weight watchers or dietary consult advised. All questions have been answered. Patient appears to understand informatio n, but if you have any questions please call or respond to this email.Pap/ hpv sentSTD Screen declinedGe netic Screen discussedC olon Screen PCPDexa Screen naRoutine Labs PCP/Specia listMammo ordered Screening mammography [address] mcknight on intercourse [id number] N89.8 Today we discussed extremely low dose imvexxy to help with vaginal dryness daily and during sex.We reviewed her health history; she has ITP but should still be able to use vaginal estrogen.R TO x 8wks med check Counseled on the following: Vaginal Dryness: Bothersome symptoms of the vagina and vulva (outer lips of the vagina) increase during and after the menopause transition or may start several years after menopause. The decrease in estrogen with menopause is a major contributo r to vaginal dryness, itching, burning, discomfort , and pain during intercours e or other sexual activity. Vaginal atrophy is the medical term that describes these changes. The genitourin caleb syndrome of menopause includes bothersome vaginal atrophy often combined with urinary symptoms. Vaginal atrophy may significan tly affect your quality of life, sexual satisfacti on, and relationsh ip with your partner. Unlike hot flashes, which generally improve with time, vaginal symptoms typically worsen with time because of aging and a prolonged lack of estrogen. Vaginal estrogen therapy An effective and safe treatment, low-dose local estrogen is applied directly to the vagina to restore vaginal health and relieve vaginal dryness and discomfort with sexual activity. Improvemen ts usually occur within a few weeks, although complete relief may take several months. This even may be an option for women with a history of breast or uterine cancer but only after careful considerat ion of risks and benefits with a healthcare provider and oncologist . Governmen t-approved low-dose vaginal estrogen products are available by [facility] on as vaginal creams (used two or three nights/wee k), a vaginal estradiol tablet (used twice/week ), and an estradiol vaginal ring (changed every 3 months). All are highly effective. You may wish to try several different forms and choose the one you prefer. Standard doses of estrogen therapy provided to treat hot flashes also treat vaginal dryness, although some women still benefit from additional low-dose vaginal estrogen treatment. If only vaginal symptoms are present, low doses of estrogen applied to the vagina are recommende d. Resources: https://sterling w.[employer] e.org/docs /default-s ource/for- women/mn-v aginal-dry ness.pdf [id number] [facility] [address],[facility] [place] [address] 12/30/2023 11:11:57 12/30/2023 11:54:42 Vaginal dryness on intercourse [id number] N89.8 Patient is here today for a medicaton check of imvexxy. She voices goals of therapy have been met with use of this therapy. She denies neg side effects. Wishes to continue this method of vag therapy. Appropriat e to continue this medication . Time spent in visit is a total of 21 mins with at least 50% of visit consisting of counseling and review of plan of care. [id number] BUCK [facility]ett [place] [address] [address] 11/17/2024 10:04:04 11/17/2024 11:10:18 Gynecologic examination [id number] Z01.419 WWEpostmen opausalPap - done todaySTI screen - declinedMa mmogram - order givenColon cancer screening - [facility]PCPRTC [facility] 1 yr or sooner if needed Suggested Calcium with Vitamin D daily. Patient advised to get an annual flu shot in the fall and she could obtain at local pharmacy. Also to obtain TDap vaccinatio n if you have not had one in the last 10 years. Recommend yearly mammograms . Encouraged monthly self breast exams. Encourage safe sexual practices, to use condoms and limit partners if not already in a monogamous relationsh ip. Engage in regular exercise. Avoid tobacco and illicit drugs. This lifestyle behavior pattern will lead to less health conditions and longer life span. If BMI greater than 25 dietary consult advised. All questions have been answered. Screening for malignant neoplasm of breast [id number] Z12.39 Vaginal dryness [id number] N89.8 discussed management optionsrx vaginal estradiol cream, r/b/a reviewedve g based moisturize r routine discussed Menopausal symptom 22304 002 N95.1 management options reviewed (hormonal vs non-hormon al) (HRT, veozah, paxil)disc ussed medical hx in relation to management options and r/bshe is going to discuss management options with her ITP specialist and return to discuss further Time spent in visit is a total of 30 mins with at least 50% of visit consisting of counseling and review of plan of care. Health Concerns Section Related Observation LastModified by Organization Detai ls LastModified Time None Recorded Concern Status LastModified by Organization Details LastModified Time None Recorded Advance Directives Directive N: Payers Encounter Date Sequence Insurance Name Policy Number Policy Skinner Covered Member ID Skinner Member ID Guarantor Name 07/15/2021 1 [facility] - DOS ON OR AFTER 21 (MEDICAID REPLACEMENT - HMO) Mary Huggins [id number] Mary Huggins 08/27/2022 1 [facility] - DOS ON OR AFTER 21 (MEDICAID REPLACEMENT - HMO) Mary Huggins [id number] Mary Huggins 11/04/2023 1 [facility] ON OR AFTER 02/20/21 (MEDICAID REPLACEMENT - HMO) Mary Huggins [id number] Mary Huggins 12/30/2023 1 [facility] ON OR AFTER 02/20/21 (MEDICAID REPLACEMENT - HMO) Mary Huggins [id number] Mary Huggins 11/17/2024 1 [facility] ON OR AFTER 02/20/21 (MEDICAID REPLACEMENT - HMO) Mary Huggins [id number] Mary Huggins Notes Date Note Type Note Provider Name and Address Organization Details Recorded Time 1 text/html Annual GYNReported bypatient.Menstrual cycle:Irregular cycle intervals(Did not start POP. Having cycles about every 2mos currently. Her flow has returned to moderate and LMP lasted only 5 days.) Urinary symptoms:No hematuria; No incontinence Vulva:No genital lesion Vagina:Normal vaginal discharge Breast:No breast pain; No breast lump; No nipple discharge Current Contraception:Satisfied with current contraception; Monogamous relationship; Tubal ligation Sexual complaints:No sexual complaints; No pain during intercourse; Normal libido Menopausal Symptoms:No menopausal symptoms; Normal vaginal lubrication Psychological symptoms:No depression; No anxiety; No PMDD Preventive measures:Encourage self breast examination; Encourage regular exercise; Encourage no tobacco use; Encourage regular mammograms starting age 40; History of abnormal pap smear/cervical dysplasia; Mammogram performed within the past year (Completed diagnosticthis month) Krystyna Carrillo, FRANCESCA- [address], [place], [address], [facility] 07/15/2021 13:08:17 3 text/html Annual GYNReported bypatient.Menstrual cycle:Perimenopausal(No periods for almost 12mos. Last FSH/LH did not reflect menopause ranges. Went through covid which triggered a lot of autoimmune issues for her.) Urinary symptoms:No hematuria; No incontinence Vulva:No genital lesion Vagina:Normal vaginal discharge Breast:No breast pain; No breast lump; No nipple discharge Current Contraception:Satisfied with current contraception; Tubal ligation Sexual complaints:No sexual complaints; No pain during intercourse; Normal libido Menopausal Symptoms:No menopausal symptoms; Normal vaginal lubrication Psychological symptoms:No depression; No anxiety; No PMDD Preventive measures:Encourage self breast examination; Encourage regular exercise; Encourage no tobacco use; Encourage regular mammograms starting age 40; Followed with yearly pap smears; Needs to schedule mammogram; Up to date on colonoscopy screening [facility] Carrillo [facility] [address], [place], [address], [facility] 08/27/2022 14:22:30 4 text/html Annual Dyer Helper Post-MenopausalReported bypatient.Menopausal Symptoms:no menopausal symptoms;inadequacy of lubrication of vaginal mucosa Vaginal Bleeding:history of menopause having occurred; no history of post menopausal bleeding Urinary Symptoms:no hematuria; no incontinence; no nocturia; no urinary frequency Vulva:no genital lesion; no vulvar atrophy Vagina:normal vaginal discharge; no vaginal atrophy Breast:no breast lump; no nipple discharge; no breast pain Sexual Complaints:no sexual complaints Psychological Symptoms:no depression; no anxiety Preventive Measures:encourage regular mammograms starting age 40; encourage self breast examination; encourage regular exercise; encourage no tobacco use; needs to schedule mammogram; history of recent colonoscopy Krystyna Carrillo [facility] [address], [place], [address], [facility] 11/04/2023 15:08:04 4 text/html Here today for med check of Imvexxy Krystyna Carrillo [facility] [address], [place], [address], [facility] 12/30/2023 11:42:54 5 text/html Annual Dyer Helper Post-MenopausalReported bypatient.Menopausal Symptoms:no menopausal symptoms; normal vaginal lubrication Vaginal Bleeding:history of menopause having occurred; no history of post menopausal bleeding Urinary Symptoms:no hematuria; no incontinence; no nocturia; no urinary frequency Vulva:no genital lesion; no vulvar atrophy Vagina:normal vaginal discharge; no vaginal atrophy Breast:no breast lump; no nipple discharge; no breast pain Sexual Complaints:no sexual complaints Psychological Symptoms:no depression; no anxiety Preventive Measures:encourage regular mammograms starting age 40; encourage self breast examination; encourage regular exercise; encourage no tobacco useNotes:49yo wwepostmenopausallast pap 2023 : nilm, HPV (-)h/o abnormal paps in the pastmammogram last 03/2024, wnl per ptcolonoscopy UTD 2021 vaginal dryness, tried imvexxy with no improvementhot flashes/night sweats/trouble sleeping/weight gain BUCK Beckett [address], [place], [address], [facility] 11/17/2024 11:08:53 OBGyn Episode Ob Episode Information Episode Created Date Number of Fetuses Patient Bloodtype Patient rh Status Prepregnancy Weight lbs Domestic Partner Domestic Partner Phone Father Name Inhalation Therapist Status 05/16/20 20 1 CLOSED Fetus Data First Name Last Name Admitted to NICU Weight (g) Sex Living Outcome Pediatric Complications Fetus ID Race Codes Race Delivery Type 2891.64 9 F Full Term 4778 Vaginal Delivery Henrry Calculation Initial Henrry Date Initial Exam Date Initial Exam Provider Initial Ultrasound Date Last Menstrual Period Date Ultra Sound Weeks Gestation 0 Eighteen To Twenty Week Henrry Update Ultra Sound Date Fundal Height At Umbil Quickening Date Ultra Sound Latest Weeks Gestation Final Henrry Confirmed By Final Henrry Confirmed Date Final Henrry Date Ultra Sound Latest Days Gestation 0 0 Menstrual History Last Menstrual Date Menses Monthly On Bcp Conception Prior Menses Frequency Hcg Plus Date Menarche Onset Age Delivery Information Delivery Date Delivery Type Labor Anesthesia Weeks Gestation Incision Type Labor Labor Length Hrs Delivered By Post Complications Tubal Sterilization Discharge Date Comments 07/23/199 6 38 Shanell Discharge Information Feeding Method Contraceptive Method Maternal HG B and HCT Levels Ob Episode Information Episode Created Date Number of Fetuses Patient Bloodtype Patient rh Status Prepregnancy Weight lbs Domestic Partner Domestic Partner Phone Father Name Inhalation Therapist Status 05/16/20 20 1 CLOSED Fetus Data First Name Last Name Admitted to NICU Weight (g) Sex Living Outcome Pediatric Complications Fetus ID Race Codes Race Delivery Type 3089.86 8704 M Full Term 4777 Vaginal Delivery Henrry Calculation Initial Henrry Date Initial Exam Date Initial Exam Provider Initial Ultrasound Date Last Menstrual Period Date Ultra Sound Weeks Gestation 0 Eighteen To Twenty Week Henrry Update Ultra Sound Date Fundal Height At Umbil Quickening Date Ultra Sound Latest Weeks Gestation Final Henrry Confirmed By Final Henrry Confirmed Date Final Henrry Date Ultra Sound Latest Days Gestation 0 0 Menstrual History Last Menstrual Date Menses Monthly On Bcp Conception Prior Menses Frequency Hcg Plus Date Menarche Onset Age Delivery Information Delivery Date Delivery Type Labor Anesthesia Weeks Gestation Incision Type Labor Labor Length Hrs Delivered By Post Complications Tubal Sterilization Discharge Date Comments 8 38 Aba Discharge Information Feeding Method Contraceptive Method Maternal HG B and HCT Levels Ob Episode Information Episode Created Date Number of Fetuses Patient Bloodtype Patient rh Status Prepregnancy Weight lbs Domestic Partner Domestic Partner Phone Father Name Inhalation Therapist Status 05/16/20 20 1 CLOSED Fetus Data First Name Last Name Admitted to NICU Weight (g) Sex Living Outcome Pediatric Complications Fetus ID Race Codes Race Delivery Type 3515.33 8 M Full Term 4776 Vaginal Delivery Henrry Calculation Initial Henrry Date Initial Exam Date Initial Exam Provider Initial Ultrasound Date Last Menstrual Period Date Ultra Sound Weeks Gestation 0 Eighteen To Twenty Week Henrry Update Ultra Sound Date Fundal Height At Umbil Quickening Date Ultra Sound Latest Weeks Gestation Final Henrry Confirmed By Final Henrry Confirmed Date Final Henrry Date Ultra Sound Latest Days Gestation 0 0 Menstrual History Last Menstrual Date Menses Monthly On Bcp Conception Prior Menses Frequency Hcg Plus Date Menarche Onset Age Delivery Information Delivery Date Delivery Type Labor Anesthesia Weeks Gestation Incision Type Labor Labor Length Hrs Delivered By Post Complications Tubal Sterilization Discharge Date Comments 2 Melissa Discharge Information Feeding Method Contraceptive Method Maternal HG B and HCT Levels Ob Episode Information Episode Created Date Number of Fetuses Patient Bloodtype Patient rh Status Prepregnancy Weight lbs Domestic Partner Domestic Partner Phone Father Name Inhalation Therapist Status 05/30/20 20 1 CLOSED Fetus Data First Name Last Name Admitted to NICU Weight (g) Sex Living Outcome Pediatric Complications Fetus ID Race Codes Race Delivery Type , Spontane ous 5186 Henrry Calculation Initial Henrry Date Initial Exam Date Initial Exam Provider Initial Ultrasound Date Last Menstrual Period Date Ultra Sound Weeks Gestation 0 Eighteen To Twenty Week Henrry Update Ultra Sound Date Fundal Height At Umbil Quickening Date Ultra Sound Latest Weeks Gestation Final Henrry Confirmed By Final Henrry Confirmed Date Final Henrry Date Ultra Sound Latest Days Gestation 0 0 Menstrual History Last Menstrual Date Menses Monthly On Bcp Conception Prior Menses Frequency Hcg Plus Date Menarche Onset Age Delivery Information Delivery Date Delivery Type Labor Anesthesia Weeks Gestation Incision Type Labor Labor Length Hrs Delivered By Post Complications Tubal Sterilization Discharge Date Comments 2010 miscarria ge Discharge Information Feeding Method Contraceptive Method Maternal HG B and HCT Levels
--- OUTSIDE RECORDS SUMMARY | 2025-01-10 11:02 | XMS_ITS | Encounter Summary ---
Author Organization [facility] Address [address] [place] [address] Care Team Providers Care Nursery Attendant Name Role Phone Roland Garcia MD Primary Care Provider [phone] Encounter Details Date Type Department Care Team (Late Contact Info) Description 12/12/2024 Results Follow-Up [facility] - Rheumatology [address] [place] [address] Shalonda Sosa MD [address] [place] [address] Social History Tobacco Use Types Packs/Day Years Used Date Smoking Tobacco: Never Smokeless Tobacco: Never Alcohol Use Standard Drinks/Week Comments No 0 (1 standard drink = 0.6 oz pur e alcohol) PHQ-2 Answer Date Recorded Patient Health Questionnaire-2 Score 0 12/11/2024 Comments No Sex and Gender Information Value Date Recorded Sex Assigned at Female 02/19/2021 10:59 AM CDT 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 Gender Identity Female 02/19/2021 10:59 AM CDT Sexual Orientation Straight 02/19/2021 10 :59 AM CDT documented as of this encounter Plan of Treatment Upcoming Encounters Date Type Department Care Team (Late Contact Info) Description 01/11/2025 10:00 AM CDT Hospital Encounter [facility] [address] [facility] [address] [place], [place] [id number] Shalonda Sosa MD [address] [place] [address] 01/25/2025 8:10 AM CDT Appointment [facility] [address] [place] [address] 06/11/2025 11:00 AM CDT Office Visit [facility] - Rheumatology [address] [place] [address] Shalonda Sosa MD [address] [place] [address] documented as of this encounter Visit Diagnoses Not on filedocumented in this encounter Care Teams Nursery Attendant Relationship Specialty Start Date End Date Roland Garcia MD [address] [place] [address] [address] [place] [address] PCP - General Family Medicine 10/23/20 documented as of this encounter
--- OUTSIDE RECORDS SUMMARY | 2025-01-10 11:02 | XMS_ITS | Clinical Summary ---
Author Organization [facility] [employer] Address [address] [place] [address] Care Team Providers Care Voice Network Administrator Name Role Phone Roland Garcia MD Primary Care Provider [phone] Source Comments [facility] [employer],non-owned Affiliates and Associated Physician Practices is amultiple site organization consisting of ambulatory clinics and hospital sitesin [place], [place], [place] and [place]. This disclosure is being madepursuant to the Care Everywhere program and may not contain all informatio navailable regarding this patient. Last updated 18.[employer] Allergies Active Allergy Reactions Criticality Noted Date Comments Shellfish Allergy 06/17/2012 Sulfa Drugs 06/17/2012 Trimethoprim Diarrhea,Fever,Vomiting 02/26/2021 Medications * Be aware that medications may not be up to date on this document. Alwaysverify current medications with the patient. vitamin D (Cholecaciferol) 125 MCG (5000 UT) capsule Take 1 (one) capsule by mouth once daily Active pantoprazole EC (Protonix) 20 MG tablet Active B Complex Vitamins (VITAMIN B COMPLEX PO) Active hydroxychloroqui ne (Plaquenil) 200 MG tabletIndication s:Sjogren's syndrome, with unspecified organ involvement (HCC) TAKE 1 TABLET BY MOUTH TWICE DAILY 180 tablet 3 5 Active estradiol (Estrace) 0.1 MG/GM vaginal cream Insert 1g vaginally at bedtime twice per week 5 Active PARoxetine (Paxil) 10 MG tablet 5 Active Active Problems Problem Noted Date Diagnosed Date On rituximab therapy 01/22/2022 Idiopathic thrombocytopenic purpura (ITP) 05/12/ 2022 Rheumatoid arthritis of [facility] with negative rheumatoid factor 01/01/2022 Sjogren's syndrome 11/28/2020 Supervision of high-risk 06/17/2012 Overview (06/17/2012): PNL: Ab: GCT: HIV: NR GBS: Dating: H/H/Plt: Hgb Elec: UDS: QS: CF: Pap: Gc/Chl: UCx: Breast/Bottle Family Planning: Idiopathic thrombocytopenic purpura 06/17/2012 Overview (06/20/2012): Pt previously on prednisone 30mg daily Increased to 60mg daily per pt. 55K in 02/2012 120k on 04/27/12 Plt 35k with clumping per [facility] prior to transfer Plts reported 95k on admission ANDERS, Cardiolipin Ab - nml History of MRSA infection 06/17/2012 Overview (06/19/2012): MRSA cx neg 06/17 Encounters Date Type Department Care Team Description 12/14/2024 Telephone [facility] [address] [place] [address] Shalonda Sosa MD 12/14/2024 Orders Only [facility] - Rheumatology [address] [place] [address] Aba Lancaster RN 12/13/2024 Orders Only [facility] - Rheumatology [address], [address] [place] [address] Shalonda Sosa MD 12/12/2024 Results Follow-Up [facility] - Rheumatology [address] [place] [address] Shalonda Sosa MD 12/11/2024 11:40 AM CDT Office Visit [facility] - Rheumatology [address], [address] [place] [address] Shalonda Sosa MD Sjogren's syndrome, with unspecified organ involvement (HCC) (Primary Dx); Idiopathic thrombocytopenic purpura (HCC) 12/03/2024 Results Follow-Up [facility] - Rheumatology [address], [address] [place] [address] Shalonda Sosa MD 12/01/2024 11:33 AM CDT - 12/01/2024 11:59 PM CDT Hospital Encounter [facility] [address] [place] [address] Shalonda Sosa MD Discharge Disposition: Home or Self Care 11/12/2024 Refill [facility] - Rheumatology [address], [address] [place] [address] Shalonda Sosa MD Refill Request from Last 3 Months Immunizations Immunization Administration Dates Next Due INFLUENZA VACCINE 08/08/2013,07/11/2013,06/18/20 12 TDAP (7yrs+) 06/18/2012 Family History Medical History Relation Name Comments Diabetes Maternal Grandmother Cancer - Breast Mother 2018 diagnos is Hypertension Mother Relation Name Status Comments Maternal Grandmother Mother Social History Tobacco Use Types Packs/Day Years Used Date Smoking Tobacco: Never Smokeless Tobacco: Never Tobacco Cessation:Counseling Given: Not Answered Alcohol Use Standard Drinks/Week Comments No 0 (1 standard drink = 0.6 oz pur e alcohol) PHQ-2 Answer Date Recorded Patient Health Questionnaire-2 Score 0 12/11/2024 Comments No Sex and Gender Information Value Date Recorded Sex Assigned at Female 02/19/2021 10:59 AM CDT 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 Gender Identity Female 02/19/2021 10:59 AM CDT Sexual Orientation Straight 02/19/2021 10 :59 AM CDT Last Filed Vital Signs Vital Sign Reading Time Taken Comments Blood Pressure 126/86 12/11/2024 11:25 AM CDT Pulse 82 12/11/2024 11:25 AM CDT Temperature 36.3 C (97.4 F) 12/11/2024 11:25 AM CDT Respiratory Rate 16 12/11/2024 11:25 AM CDT Oxygen Saturation 97% 12/11/2024 11:25 AM CDT Inhaled Oxygen Concentration - - Weight 83.9 kg (185 lb) 12/11/2024 11:25 AM CDT Height 160 cm (5' 3 ) 05/10/2024 1:19 PM CDT Body Mass Index 32.77 05/10/2024 1:19 PM CDT Plan of Treatment Upcoming Encounters Date Type Department Care Team (Late st Contact Info) Description 01/11/2025 10:00 AM CDT Hospital Encounter [facility] [address] [place] [address] Shalonda Sosa MD [address] [place] [address] 01/25/2025 8:10 AM CDT Appointment [facility] [address] [facility] [address] [place] [address] 06/11/2025 11:00 AM CDT Office Visit [facility] - Rheumatology [address], [address] [place] [address] Shalonda Sosa MD [address] [place] [address] Health Maintenance Due Date Last Done Comments COLOGUARD (AGES 45-75) - COLON CA SCREENING 1976 COLON MONITORING 1976 COLONOSCOPY - COLON CA SCREENING 1976 CT COLONOGRAPHY - COLON CA SCREENING 1976 Colorectal Cancer Screening 1976 FIT - COLON CA SCREENING 1976 FLEX SIG - COLON CA SCREENING 1976 LIPID TESTING 1976 HEPATITIS B VACCINE (1 of 3 - 19+ 3-dose series) 1995 MAMMOGRAM 11/12/2021 11/13/2019, 10/22, 11/13/2019 DTAP/TDAP/TD VACCINES (2 - Td or Tdap) 06/18/2022 06/18/2012 COVID-19 VACCINE ( - season) 2024 INFLUENZA VACCINE (Season Ended) 2025 08/08/2013, 07/11/2013, 06/18/2012 ZOSTER VACCINE (1 of 2) 2026 PAP SMEAR 11/18/2027 11/17/2024, 10/21, 08/27/2022, Additional history exists SCREENING FOR DIABETES 12/12/2027 , 05/20/2023, 01/13/2023, Additional history exists HIV SCREENING Completed 06/17/2012 DEPRESSION SCREENING Completed 08/25/2024, 11/25/2023, 09/04/2022, Additional history exists HEPATITIS C SCREENING Completed 12/11/2024 , 10/13/2023, 12/29/2021, Additional history exists HIB VACCINE Aged Out No longer eligi ble based on patient's age to complete this topic HPV VACCINE Aged Out No longer eligi ble based on patient's age to complete this topic MENINGOCOCCAL (Group B) VACCINE SHARED DECISION-MAKING Aged Out No longer eligible based on patient's age to complete this topic MENINGOCOCCAL GROUPS A/C/Y/W VACCINE Aged Out No longer eligible based on patient's age to complete this topic PNEUMOCOCCAL VACCINE Aged Out No long er eligible based on patient's age to complete this topic Procedures Procedure Name Priority Date/Time Associated Diagnosis Comments HEPATITIS SCREEN ACUTE ([facility]) Routine 12/11/2024 2:06 PM CDT Sjogren's syndrome, with unspecified organ involvement (HCC) CBC W AUTO DIFFERENTIAL Routine 12/11/2024 2:04 PM CDT Sjogren's syndrome, with unspecified organ involvement (HCC) CBC W AUTO DIFFERENTIAL Routine 12/11/2024 2:03 PM CDT RHEUMATOID FACTOR BLOOD QUANTITATIVE Routine 12/11/2024 2:03 PM CDT Sjogren's syndrome, with unspecified organ involvement (HCC) ANDERS BLOOD SCREEN W/REFLEX TITER Routine 12/11/2024 2:03 PM CDT Sjogren's syndrome, with unspecified organ involvement (HCC) QUANTIFERON TB-GOLD Routine 12/11/2024 2 :03 PM CDT Sjogren's syndrome, with unspecified organ involvement (HCC) C-REACTIVE PROTEIN Routine 12/11/2024 2: 03 PM CDT Sjogren's syndrome, with unspecified organ involvement (HCC) ERYTHROCYTE SEDIMENTATION RATE Routine 12/11/2024 2:03 PM CDT Sjogren's syndrome, with unspecified organ involvement (HCC) COMPREHENSIVE METABOLIC PANEL Routine 12/11/2024 2:03 PM CDT Sjogren's syndrome, with unspecified organ involvement (HCC) URIC ACID BLOOD Routine 12/01/2024 11:38 AM CDT Hand arthritis HIV-1 HIV-2 ANTIBODY RAPID STAT 06/17/2012 8:40 AM CDT from Last 3 Months or Most Recently Relevant to Health Maintenance Results * HEPATITIS SCREEN ACUTE ([facility]) (12/11/2024 2:06 PM CDT) [facility] Hepatitis A Virus Antibody IgM Negative Negative [facility] INSURANCE BILL Comment: A negative anti-HAV IgM result suggests no recent or current HAV infection. Hepatitis B Virus Surface Antigen Negative Negative [facility] INSURANCE BILL Hepatitis B Core Virus Antibody IgM Negative Negative [facility] INSURANCE BILL Hepatitis C Antibody Non Reactive Non Reactive [facility] INSURANCE BILL Comment: Performed at: [address] [id number] Sand Control Worker: Андрей Orr PhD, Phone: [phone] Interpretation Comment [facility] INSURANCE BILL Comment: Not infected with HCV unless early or acute infection is suspected (which may be delayed in an immunocompromised individual), or other evidence exists to indicate HCV infection. Blood BLOOD SPECIMEN / Unknown 12/11/2024 2:06 PM CDT 12/11/2024 Narrative [facility] INSURANCE BILL - 12/12/2024 7:09 AM CDT Performed at: [address] [id number] Sand Control Worker: Андрей Orr PhD, Phone: [phone] us Shalonda Sosa MD LAB - CHEMISTRY ORDERABLES Final Result [facility] INSURANCE BILL [address] [place] [address] * (ABNORMAL) CBC WITH DIFFERENTIAL (12/11/2024 2:04 PM CDT) Only the most recent of2 resultswithin the time period is included. WBC 6.9 3.4 - 10.8 x10E3/uL [facility] INSURANCE BILL RBC 5.00 3.77 - 5.28 x10E6/uL [facility] INSURANCE BILL Hemoglobin 14.6 11.1 - 15.9 g/dL [facility] INSURANCE BILL Hematocrit 44.8 34.0 - 46.6 % [facility] INSURANCE BILL MCV 90 79 - 97 fL [facility] INSURANCE BILL MCH 29.2 26.6 - 33.0 pg [facility] INSURANCE BILL MCHC 32.6 31.5 - 35.7 g/dL [facility] INSURANCE BILL RDW 12.6 11.7 - 15.4 % [facility] INSURANCE BILL Platelet Count 126(L) 150 - 450 x10E3/uL [facility] INSURANCE BILL Granulocytes % 58 Not Estab. % [facility] INSURANCE BILL Lymphocytes % 29 Not Estab. % [facility] INSURANCE BILL Monocytes % 10 Not Estab. % [facility] INSURANCE BILL Eosinophils % 2 Not Estab. % [facility] INSURANCE BILL Basophils % 1 Not Estab. % [facility] INSURANCE BILL Granulocytes Absolute 4.0 1.4 - 7.0 x10E3/uL [facility] INSURANCE BILL Lymphocytes Absolute 2.0 0.7 - 3.1 x10E3/uL [facility] INSURANCE BILL Monocytes Absolute 0.7 0.1 - 0.9 x10E3/uL [facility] INSURANCE BILL Eosinophils Absolute 0.1 0.0 - 0.4 x10E3/uL [facility] INSURANCE BILL Basophils Absolute 0.1 0.0 - 0.2 x10E3/uL [facility] INSURANCE BILL Immature Granulocytes 0 Not Estab. % [facility] INSURANCE BILL Immature Granulocytes Absolute 0.0 0.0 - 0.1 x10E3/uL [facility] INSURANCE BILL Blood BLOOD SPECIMEN / Unknown 12/11/2024 2:04 PM CDT 12/11/2024 Narrative [facility] INSURANCE BILL - 12/12/2024 3:09 PM CDT Performed at: [address] [place] [id number] Sand Control Worker: Андрей Orr PhD, Phone: [phone] Shalonda Sosa MD LAB - HEMATOLOGY ORDERABLES Gogo l Result Performing Organization Address City/[facility]/ZIP Co de Phone Number [facility] INSURANCE BILL [address] [place] [address] * RHEUMATOID FACTOR BLOOD QUANTITATIVE (12/11/2024 2:03 PM CDT) Rheumatoid Factor 10.6 <14.0 IU/mL [facility] INSURANCE BILL Blood BLOOD SPECIMEN / Unknown 12/11/2024 2:03 PM CDT 12/11/2024 Narrative [facility] INSURANCE BILL - 12/12/2024 8:11 AM CDT Performed at: [address] [place] [id number] Sand Control Worker: Андрей Orr PhD, Phone: [phone] Shalonda Sosa MD LAB - CHEMISTRY ORDERABLES Final Result Performing Organization Address [facility] Phone Number [facility] [address] [place] [address] * C-REACTIVE PROTEIN (12/11/2024 2:03 PM CDT) C-Reactive Protein 2 0 - 10 mg/L [facility] INSURANCE BILL Blood BLOOD SPECIMEN / Unknown 12/11/2024 2:03 PM CDT 12/11/2024 Narrative [facility] INSURANCE BILL - 12/12/2024 8:11 AM CDT Performed at: [address] [place] [id number] Sand Control Worker: Андрей Orr PhD, Phone: [phone] Shalonda Sosa MD LAB - CHEMISTRY ORDERABLES Final Result Performing Organization Address City/[facility]/ZIP Co de Phone Number [facility] INSURANCE BILL [address] [place] [address] * ANDERS BLOOD SCREEN W/REFLEX TITER (12/11/2024 2:03 PM CDT) Pathologist [facility] ANDERS Negative [facility] INSURANCE BILL Comment: Negative <1:80 Borderline 1:80 Positive >1:80 ICAP nomenclature: AC-0 For more information about Hep-2 cell patterns use ANApatterns.org, the official website for the International Consensus on Antinuclear Antibody (ANDERS) Patterns (ICAP). Blood BLOOD SPECIMEN / Unknown 12/11/2024 2:03 PM CDT 12/11/2024 Narrative [facility] INSURANCE BILL - 12/13/2024 1:09 PM CDT Performed at: [address] [place] [id number] Sand Control Worker: Андрей Orr PhD, Phone: [phone] Shalonda Sosa MD LAB - CHEMISTRY ORDERABLES Final Result [facility] INSURANCE BILL [address] [place] [address] * QUANTIFERON TB-GOLD (12/11/2024 2:03 PM CDT) [facility] QuantiFERON Incubation Incubation performed. [facility] INSURANCE BILL QuantiFERON-TB Gold Plus Negative Negative [facility] INSURANCE BILL Comment: No response to M tuberculosis antigens detected. Infection with M tuberculosis is unlikely, but high risk individuals should be considered for additional testing (ATS/IDSA/CDC Clinical Practice Guidelines, 2017). The reference range is an Antigen minus Nil result of <0.35 IU/mL. Chemiluminescence immunoassay methodology Performed at: [address] [place] [id number] Sand Control Worker: Андрей Orr PhD, Phone: [phone] QuantiFERON Criteria Comment [facility] INSURANCE BILL Comment: QuantiFERON-TB Gold Plus is a qualitative indirect test for M tuberculosis infection (including disease) and is intended for use in conjunction with risk assessment, radiography, and other medical and diagnostic evaluations. The QuantiFERON-TB Gold Plus result is determined by subtracting the Nil value from either TB antigen (Ag) value. The Mitogen tube serves as a control for the test. QuantiFERON TB1 Ag Value 0.03 IU/mL [facility] INSURANCE BILL QuantiFERON TB2 Ag Value 0.03 IU/mL [facility] INSURANCE BILL QuantiFERON Nil Value 0.03 IU/mL [facility] INSURANCE BILL QuantiFERON Mitogen Value >10.00 IU/mL [facility] INSURANCE BILL Blood BLOOD SPECIMEN / Unknown 12/11/2024 2:03 PM CDT 12/11/2024 Narrative [facility] INSURANCE BILL - 12/13/2024 7:09 PM CDT Performed at: [address] [place] [id number] Sand Control Worker: Андрей Orr PhD, Phone: [phone] Shalonda Sosa MD LAB - CHEMISTRY ORDERABLES Final Result Performing Organization Address [facility] de Phone Number [facility] INSURANCE BILL [address] [place] [address] * ERYTHROCYTE SEDIMENTATION RATE (12/11/2024 2:03 PM CDT) Erythrocyte Sedimentation Rate Westergren 20 0 - 32 mm/hr [facility] INSURANCE BILL Blood BLOOD SPECIMEN / Unknown 12/11/2024 2:03 PM CDT 12/11/2024 Narrative [facility] INSURANCE BILL - 12/12/2024 7:09 AM CDT Performed at: [address] [place] [id number] Sand Control Worker: Андрей Orr PhD, Phone: [phone] Shalonda Sosa MD LAB - HEMATOLOGY ORDERABLES Gogo l Result Performing Organization Address [facility] Co de Phone Number [facility] INSURANCE BILL [address] [place] [address] * COMPREHENSIVE METABOLIC PANEL (12/11/2024 2:03 PM CDT) Glucose 86 70 - 99 mg/dL [facility] INSURANCE BILL BUN 12 6 - 24 mg/dL [facility] INSURANCE BILL Creatinine 0.73 0.57 - 1.00 mg/dL [facility] INSURANCE BILL eGFR by CKD-EPI 101 >59 mL/min/1.7 3 [facility] INSURANCE BILL BUN/Creatinine Ratio 16 9 - 23 [facility] INSURANCE BILL Sodium 139 134 - 144 mmol/L [facility] INSURANCE BILL Potassium 4.4 3.5 - 5.2 mmol/L [facility] INSURANCE BILL Chloride 101 96 - 106 mmol/L [facility] INSURANCE BILL CO2 24 20 - 29 mmol/L [facility] INSURANCE BILL Calcium 9.4 8.7 - 10.2 mg/dL [facility] INSURANCE BILL Protein Total 6.8 6.0 - 8.5 g/dL [facility] INSURANCE BILL Albumin 4.5 3.9 - 4.9 g/dL [facility] INSURANCE BILL Globulin Total 2.3 1.5 - 4.5 g/dL [facility] INSURANCE BILL Bilirubin Total 0.3 0.0 - 1.2 mg/dL [facility] INSURANCE BILL Alkaline Phosphatase 61 44 - 121 IU/L [facility] INSURANCE BILL AST 18 0 - 40 IU/L [facility] INSURANCE BILL ALT 18 0 - 32 IU/L [facility] INSURANCE BILL Blood BLOOD SPECIMEN / Unknown 12/11/2024 2:03 PM CDT 12/11/2024 Narrative [facility] INSURANCE BILL - 12/12/2024 7:09 AM CDT Performed at: [address] [place] [id number] Sand Control Worker: Андрей Orr PhD, Phone: [phone] Shalonda Sosa MD LAB - CHEMISTRY ORDERABLES Final Result [facility] INSURANCE BILL [address] [place] [address] * URIC ACID BLOOD (12/01/2024 11:38 AM CDT) [facility] Uric Acid 4.9 2.5 - 6.2 mg/dL 12/01/2024 12:09 PM CDT [facility] Blood BLOOD SPECIMEN / Unknown Lab Venipuncture / Unknown 12/01/2024 11:38 AM CDT 12/01/2024 11:38 AM CDT us Shalonda Sosa MD LAB - CHEMISTRY ORDERABLES Final Result [facility] [address] [place] [address] * HIV-1 HIV-2 ANTIBODY RAPID (06/17/2012 8:40 AM CDT) HIV-1/HIV-2 Rapid Antibody Nonreactive Nonreactive [facility] Blood specimen (specimen) BLOOD SPECIMEN / Unknown 06/17/2012 8:40 AM CDT 06/17/2012 10:10 AM CDT us Veronica Blandon MD LAB - CHEMISTRY ORDERABLE S Final Result Performing Organization Address City/[facility] Co de Phone Number [facility] [address] [place] [address] from Last 3 Months or Most Recently Relevant to Health Maintenance [place] [address] [place] [address] [facility] Advance Directives * FULL RESUSCITATION (Latest Code Status on File) Date Activated Date Inactivated Comments 06/17/2012 8:36 AM 06/19/2012 6:29 PM Care Teams Voice Network Administrator Relationship Specialty Start Date End Date Roland Garcia MD [address] [place] [id number] PCP - General Family Medicine 10/23/20
--- OUTSIDE RECORDS SUMMARY | 2025-01-10 11:02 | XMS_ITS | Encounter Summary ---
Author Organization [facility] [employer] [facility] Address [address] [place] [address] Care Team Providers Care Process Safety Manager Name Role Phone Roland Garcia MD Primary Care Provider [phone] Encounter Details Date Type Department Care Team (Late st Contact Info) Description 01/10/2025 11:00 AM CDT Office Visit [facility] Oncology and Hematology - [place] [address] [facility] [address] [place] [address] Sunny Rincon MD [address] [place] [address] Arrived Social History Tobacco Use Types Packs/Day Years Used Date Smoking Tobacco: Never Smokeless Tobacco: Never Tobacco Cessation:Counseling Given: Not Answered Alcohol Use Standard Drinks/Week Comments Yes 0 (1 standard drink = 0.6 oz pur e alcohol) Comments Unknown Sex and Gender Information Value Date Recorded Sex Assigned at Not on file 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 Gender Identity Not on file Sexual Orientation Not on file documented as of this encounter Last Filed Vital Signs Vital Sign Reading Time Taken Comments Blood Pressure 111/74 01/10/2025 10:43 AM CDT Pulse 78 01/10/2025 10:43 AM CDT Temperature 36.6 C (97.8 F) 01/10/2025 10:43 AM CDT Respiratory Rate 16 01/10/2025 10:4 3 AM CDT Oxygen Saturation 98% 01/10/2025 10: 43 AM CDT Inhaled Oxygen Concentration - - Weight 85.5 kg (188 lb 9.6 oz) 01/10/2025 10:43 AM CDT Pt verbally stated that this is the correct weight Height - - Body Mass Index 33.41 03/18/2022 10:07 AM CDT documented in this encounter Plan of Treatment Not on file documented as of this encounter Visit Diagnoses Not on filedocumented in this encounter Care Teams Process Safety Manager Relationship Specialty Start Date End Date Roland Garcia MD PCP - General Emergency Medicine 09/29/19 documented as of this encounter
--- OUTSIDE RECORDS SUMMARY | 2025-01-10 11:02 | XMS_ITS | Clinical Summary ---
Author Organization [facility] Address [address] [place] [address] Care Team Providers Care Tractor Operator Laser Leveling Name Role Phone Roland Garcia MD Primary Care Provider [phone] Allergies Active Allergy Reactions Criticality Noted Date Comments Shellfish Containing Products Other (See comments),Swelling High 06/17/2012 Sulfa (Sulfonamide Antibiotics) Other (See comments) Low 06/17/2012 Triamycin Diarrhea Low 09/26/2020 Trimethoprim Diarrhea,Fever,Nause a And Vomiting,Nausea & Vomiting Medium 02/26/2021 Medications hydrOXYchloroQU INE (PLAQUENIL) 200 mg tablet Take 1 tablet (200 mg total) by mouth 2 (two) times a day 1 Active multivitamin with minerals tablet Take 1 tablet by mouth daily Active sodium chloride 0.9% 0.9% parenteral solution 500 mL with riTUXimab-abbs 10 mg/mL solution 1,000 mg of base by contin. 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 01/01/2022 Sjogren's syndrome 11/28/2020 Paresthesia of skin 10/02/2020 Joint swelling 09/30/2020 Palpitations 09/30/2020 Paresthesia of upper extremity 09/30/2020 Shortness of breath 09/30/2020 Thrombocytopenia 09/30/2020 Radiologic findings of lung field, abnormal 10/22 Overview (02/17/2024): Oth abn and inconclusive findings on dx imaging of breast;Recorded Elsewhere: No Location: [facility] Source: EHR Chronic: N Practice ID: [id number] Billable Time: 01:22:31 PM Pelvic and perineal pain 09/05/2018 Overview (02/17/2024): Pelvic and perineal pain;Recorded Elsewhere: No Location: [facility] Source: EHR Chronic: N Practice ID: [id number] Billable Time: 02:30:00 PM Low grade squamous intraepit helial lesion (LGSIL) on Papanicolaou smear of cervix 11/09/2017 Overview (02/17/2024): Low grade intrepith lesion cyto smr crvx (LGSIL);Recorded Elsewhere: No Location: [facility] Source: EHR Chronic: N Practice ID: [id number] Billable Time: 02:00:00 PM On rituximab therapy 07/03/2015 Overview (02/17/2024): Postcoital and contact bleeding;Recorded Elsewhere: No Location: [facility] Source: EHR Chronic: N Practice ID: [id number] Billable Time: 08:15:00 AM Abnormal uterine and vaginal bleeding, unspecified;Recorded Elsewhere: No Location: [facility] Source: EHR Chronic: N Practice ID: [id number] Billable Time: 11:00:00 AM Abnormal uterine and vaginal bleeding, unspecified;Recorded Elsewhere: No Location: [facility] Source: EHR Chronic: N Practice ID: [id number] Billable Time: 11:00:00 AM History of MRSA infection 06/17/2012 Overview (10/02/2020): MRSA cx neg 06/17 Premature rupture of membranes with pr oblem 06/17/2012 Overview (02/17/2024): Premature rupture of membranes, antepartum;Practice ID: [id number] Supervision of high-risk 06/17/2012 Overview (02/17/2024): PNL: Ab: GCT: HIV: NR GBS: Dating: H/H/Plt: Hgb Elec: UDS: QS: CF: Pap: Gc/Chl: UCx: Breast/Bottle Family Planning: Multigravida of advanced maternal age 0703/03/2012 Overview (02/17/2024): Other advanced maternal age, antepartum condition or complication;Recorded Elsewhere: No Location: [facility] Source: EHR Chronic: N Practice ID: [id number] Billable Time: 10:00:00 AM Immune thrombocytopenic purpura 01/14/2011 Overview (02/17/2024): Pt previously on prednisone 30mg daily Increased to 60mg daily per pt. 55K in 02/2012 120k on 04/27/12 Plt 35k with clumping per [facility] prior to transfer Plts reported 95k on admission ANDERS, Cardiolipin Ab - nml Pt previously on prednisone 30mg daily Increased to 60mg daily per pt. 55K in 02/2012 120k on 04/27/12 Plt 35k with clumping per [facility] prior to transfer Plts reported 95k on admission ANDERS, Cardiolipin Ab - nml Immunizations Immunization Administration Dates Next Due Influenza, Trivalent, IM (MDV) 06/18/2012 Influenza, Unspecified 08/08/2013,07/11/2013 Tdap 06/18/2012 Surgical History Surgery Date Site/Laterality Comments TUBAL LIGATION 08/23/2013 - 08/22/2014 CERVIX SURGERY 08/23/2019 - 08/22/2020 WISDOM TOOTH EXTRACTION Medical History Medical History Date Comments Paresthesia of upper extremity Shortness of breath Palpitations Joint swelling Chronic idiopathic thrombocy topenic purpura (HCC) Sjogren's disease Autoimmune disease Diagnosed Sjorgens October 2020 GERD (gastroesophageal reflux disease) 08/2021 Arthritis 10/2021 Clotting disorder 07/2012 Family History Medical History Relation Name Comments No Known Problems Father Breast cancer Mother Radha Cancer Mother Radha Hypertension Mother Radha Relation Name Status Comments Father Alive Mother Radha Alive Social History Tobacco Use Types Packs/Day Years Used Date Smoking Tobacco: Never Smokeless Tobacco: Never Tobacco Cessation:Counseling Given: Not Answered Alcohol Use Standard Drinks/Week Comments Yes 0 (1 standard drink = 0.6 oz pur e alcohol) Occasionally AUDIT-C Answer Date Recorded Q1: How often do you have a drink containing alc ohol? Monthly or less 12/24/2020 Average Number of Drinks Not on file 021 Q3: How often do you have si x or more drinks on one occasion? Never 12/24/2020 Personal Safety Answer Date Recorded Getting School Help Needed Not on file 08/31 Comments No Sex and Gender Information Value Date Recorded Sex Assigned at Not on file Legal Sex Female 2:47 AM HRBP Gender Identity Female 12/19/2020 10:34 PM CDT Sexual Orientation Straight 12/19/2020 10 :34 PM CDT Obstetrics History Last Filed Vital Signs Vital Sign Reading Time Taken Comments Blood Pressure 118/60 09/02/2023 10:59 AM HRBP Pulse 61 09/02/2023 10:59 AM HRBP Temperature 37.1 C (98.7 F) 08/31/2022 11:22 AM HRBP Respiratory Rate 20 08/31/2022 11:22 AM HRBP Oxygen Saturation 98% 09/02/2023 10:59 AM HRBP Inhaled Oxygen Concentration - - Weight 85.3 kg (188 lb 0.8 oz) 09/30/2023 6:35 A M HRBP Height 160 cm (5' 3 ) 09/30/2023 6:35 AM HRBP Body Mass Index 33.31 09/30/2023 6:35 AM HRBP Plan of Treatment Health Maintenance Due Date Last Done Comments Cervical Cancer Screening 1976 Colon Cancer Screening-Colonoscopy 1976 Depression Screening 1976 Hepatitis C Screening 1976 Hepatitis B Screening 1994 Regular Well Visit/Exam 18-64 1994 Pneumococcal vaccine <65 (1 of 2 - PCV) 1995 Zoster Vaccine (1 of 2) 1995 Breast Cancer Screening-Mammogram 11/01/2021 021, 11/13/2019 DTaP/Tdap/Td Vaccine (2 - Td or Tdap) 06/18/2022 Influenza Vaccine (#1) 2024 3, 07/11/2013, 06/18/2012 Insurance [facility] Member Subscriber Plan / Payer (Ef fective 2020-Present) Name:Mary Huggins Relation to Subscriber:Self Name:Joseluis Carloscandace Jimenez Payer ID:[id number] (NAIC) Group ID:Not on file Type:MEDICAID RISK OTHER Address: [address] [place], [place] [id number] [place] [address] [facility] Care Teams Tractor Operator Laser Leveling Relationship Specialty Start Date End Date Roland Garcia MD PCP - General 11/11/20
--- OUTSIDE RECORDS SUMMARY | 2025-01-10 11:02 | XMS_ITS | CONTINUITY OF CARE DOCUMENT ---
Author Name saskia kruger Address Unknown Organization [facility] Office Address [address] [place] [address] Phone [phone] Care Team Providers Care High Value Associate Name Role Phone Kush Young MD Unavailable MONA WATSON MD Unavailable [phone] MONA WATSON MD Unavailable [phone] PROBLEMS Condition Status Date Provider Notes Cardiology examination completed 8 - Kush Young MD Palpitations active Kush Young MD Sjogren's syndrome active Maggy Martínez NP Shortness of breath active Roque Kyte Joint swelling active Roque Kyte Numbness and tingling b/l hands active Vicente n Kyte Thrombocytopenia active Kush Young MD Obesity active Kush Young MD ENCOUNTERS Date Type Provider Location Encounter Diag nosis - In-person encounter Office Visit Kush Young MD [facility] Sjogren's syndrome - In-person encounter Office Visit Ksuh Young MD [facility] Cardiology examination - In-person encounter Office Visit Kush Young MD [facility] PalpitationsObesityThrombocytopeniaNumbn ess and tingling b/l handsJoint swellingShortness of breath VITAL SIGNS Date Observation Value Provider Body Mass Index (Ratio) 29.76 kg/m2 Marianne Young MD blood pressure, diastolic 72 mm[Hg] Rh onda Carole blood pressure, systolic 100 mm[Hg] Rho nda Carole oxygen saturation, oximetry 98 % Karishma Carole pulse rate 82 /min Karishma Carole weight E&M 168 [lb_av] Karishma Carole blood pressure, resting No Rhon da Carole respiratory rate E&M 18 /min Karishma Carole blood pressure, cuff size regular Rh onda Carole height E&M 63 [in_i] Karishma Carole Body Mass Index (Ratio) 30.29 kg/m2 Lewis Berry blood pressure, cuff size regular Salvador isjorge Errol respiratory rate E&M 19 /min Melania Nat oxygen saturation, oximetry 97 % Melania Nat blood pressure, diastolic 70 mm[Hg] Kr isty Errol blood pressure, systolic 112 mm[Hg] Kri sty Errol pulse rate 90 /min Melania Errol blood pressure, resting No Partha patel Nat weight E&M 171 [lb_av] Kush Young MD height E&M 63 [in_i] Melania Nat Body Mass Index (Ratio) 30.64 kg/m2 Vicenteramonita Gutierrez blood pressure, diastolic 68 mm[Hg] Rh onda Carole blood pressure, systolic 105 mm[Hg] Rho nda Carole oxygen saturation, oximetry 98 % Karishmaheidy Lam pulse rate 73 /min Karishma Carole respiratory rate E&M 18 /min Karishma Carole blood pressure, resting No Rhon va Carole blood pressure, cuff size regular Rh onda Carole weight E&M 173 [lb_av] Karishma Carole height E&M 63 [in_i] Karishma Lam ALLERGIES Allergy Name Onset Date Reaction Criticality Status SHELLFISH High Criticality active SULFA High Criticality active HISTORY OF MEDICATION USE Medication Status Instructions Dates Provider Indications Com ments HYDROXYCHLOROQUINE SULFATE TABLET active 400 mg daily Maggy Martínez NP METOPROLOL TARTRATE 25 MG ORAL TABLET active half tab. twice daily Kush Young MD SOCIAL HISTORY Date Observation Value Provider smoking status Never smoker Maggy felton NP social history reviewed E&M revi ewed - no changes required Maggy Martínez NP social history E&M S moking History: Demetra combs has never smoked. Kush Young MD social history reviewed E&M revi ewed - no changes required Kush Young MD smoking status Never smoker Melania Johns social history E&M S moking History: Demetra combs has never smoked. Kush Young MD social history reviewed E&M revi ewed - no changes required Kush Young MD smoking status Never smoker Kush escalante MD number of grandchildren Kush Young MD FAMILY HISTORY Family Member Condition Mother Family History of Di abetes: Mother Family History Breas t Cancer: INSURANCE PROVIDERS Payer name Policy type / Coverage type [place] [employer] party ID [id number] MEDICAID (2) Medicaid [id number] TREATMENT PLAN Date Name Performer [id number],B,Resolved. Natacha Young MD [id number],S,Follows rheum atology. Kush Young MD Telehealth:Resolved. Kush melton MD Telehealth:Follows rheumatology. Kush Young MD Cardiology:Recent di agnosis. Started on hydroxychlorquine by rheumatology, who continues to follow. Maggy Hopsonramandeep PUMPER GAGER Cardiology:Follows jonathan muñoz hemo-oncology. Maggy Martínez PUMPER GAGER Cardiology:Resolved with Metoprolol and reduced caffeine intake. Normal echo with EF 65% in 09/2020. Her monitor at that time showed sinus rhythm with a few ectopic beats. Maggy Hopsonramandeep PUMPER GAGER Cardiology: I ntermittent swelling of the joints in the b/l hands and fingers. Plans to see rheumatology later this week. David Kristi Cardiology: P alpitations described as fluttering. Telensentry monitor showed sinus rhythm with rare extra beats. The patient would like to do a trial on a low-dose beta yulissa to see if this helps with her symptoms. Kush Young MD Cardiology: A ssociated with the palpitations. Her echocardiogram demonstrated normal LVF, EF 60%, mild TR. Kush Young MD Cardiology: I ntermittent swelling of the joints in the b/l hands and fingers. Planned to see rheumatology later this week. Kush Young MD Cardiology: F vianey with hemo-oncology. Kush Young MD Cardiology:Weight loss advised Mary Gutierrez Cardiology:Stable. Labs per your office. Roque Gutierrez Cardiology:Intermitt ent swelling of the joints in the b/l hands and fingers. Planned to see rheumatology. Roque Gutierrez Cardiology:Associate d with the palpitations. Will check echocardiogram. Roque Gutierrez Cardiology:Palpitati ons described as fluttering. Will check telesentry monitor. Roque Gutierrez Date Name Complete Echo Monitor - Telemetry (Mobile Cardiac) HISTORY OF PROCEDURES Procedure Date Procedure Name Provider Procedure Notes S tatus EKG Kush Young MD complet ed Event Monitor Kush Young MD comp leted STACIE Young MD complet ed STACIE Young MD complet ed
--- OUTSIDE RECORDS SUMMARY | 2025-01-10 11:02 | XMS_ITS | Encounter Summary ---
Author Organization [facility] Address [address] [place] [address] Care Team Providers Care Operator Technician Name Role Phone Roland Garcia MD Primary Care Provider [phone] Encounter Details Date Type Department Care Team (Late st Contact Info) Description 12/03/2024 Results Follow-Up [facility] - Rheumatology [address] [place] [address] Shalonda Sosa MD [address] [place] [address] Social History Tobacco Use Types Packs/Day Years Used Date Smoking Tobacco: Never Smokeless Tobacco: Never Alcohol Use Standard Drinks/Week Comments No 0 (1 standard drink = 0.6 oz pur e alcohol) PHQ-2 Answer Date Recorded Patient Health Questionnaire-2 Score 0 08/25/2024 Comments No Sex and Gender Information Value Date Recorded Sex Assigned at Female 02/19/2021 10:59 AM CDT Legal Sex Female 5:24 AM CLIENT SOLUTIONS DIRECTOR Gender Identity Female 02/19/2021 10:59 AM CDT Sexual Orientation Straight 02/19/2021 10 :59 AM CDT documented as of this encounter Progress Notes * Shalonda Sosa MD - 12/03/2024 2:46 PM CDT Uric acid 4.9. documented in this encounter Plan of Treatment Upcoming Encounters Date Type Department Care Team (Late st Contact Info) Description 01/11/2025 10:00 AM CDT Hospital Encounter [facility] [address] [place] [address] Shalonda Sosa MD [address] [place] [address] 01/25/2025 8:10 AM CDT Appointment [facility] [address] [place] [address] 06/11/2025 11:00 AM CDT Office Visit [facility] - Rheumatology [address], [address] [place] [address] Shalonda Sosa MD [address] [place] [address] documented as of this encounter Visit Diagnoses Not on filedocumented in this encounter Care Teams Operator Technician Relationship Specialty Start Date End Date Roland Garcia MD [address] [facility] [address] [place] [address] PCP - General Family Medicine 10/23/20 documented as of this encounter
--- OUTSIDE RECORDS SUMMARY | 2025-01-10 11:02 | XMS_ITS | Referral Summary ---
Author Organization [facility] Address [address] [place] [address] Care Team Providers Care Equity Structurer Name Role Phone Roland Garcia MD Primary Care Provider [phone] Allergies Active Allergy Reactions Criticality Noted Date [...] dx imaging of breast;Recorded Elsewhere: No Location: [facility] Source: EHR Chronic: N Practice ID: [id number] Billable Time: 01:22:31 PM Pelvic and perineal pain 09/05/2018 Overview (02/17/2024): Pelvic and perineal pain;Recorded Elsewhere: No Location: [facility] Source: EHR Chronic: N Practice ID: [id number] Billable Time: 02:30:00 PM Low grade squamous intraepit helial lesion (LGSIL) on Papanicolaou smear of cervix 11/09/2017 Overview (02/17/2024): Low grade intrepith lesion cyto smr crvx (LGSIL);Recorded Elsewhere: No Location: [facility] Source: EHR Chronic: N Practice ID: [id number] Billable Time: 02:00:00 PM On rituximab therapy 07/03/2015 Overview (02/17/2024): Postcoital and contact bleeding;Recorded Elsewhere: No Location: [facility] Source: EHR Chronic: N Practice ID: [id number] Billable Time: 08:15:00 AM Abnormal uterine and vaginal bleeding, unspecified;Recorded Elsewhere: No Location: [facility] Source: EHR Chronic: N Practice ID: [id number] Billable Time: 11:00:00 AM Abnormal uterine and vaginal bleeding, unspecified;Recorded Elsewhere: No Location: [facility] Source: EHR Chronic: N Practice ID: [id number] [...] antepartum condition or complication;Recorded Elsewhere: No Location: [facility] Source: EHR Chronic: N Practice ID: [id number] Billable Time: 10:00:00 AM Immune thrombocytopenic purpura 01/14/2011 Overview (02/17/2024): Pt previously on prednisone 30mg daily Increased to 60mg daily per pt. 55K in 02/2012 120k on 04/27/12 Plt 35k with clumping per [facility] prior to transfer Plts reported 95k on admission ANDERS, Cardiolipin Ab - nml Pt previously on prednisone 30mg daily Increased to 60mg daily per pt. 55K in 02/2012 120k on 04/27/12 Plt 35k with clumping per [facility] prior to transfer Plts reported 95k on admission ANDERS, Cardiolipin Ab - nml Immunizations Immunization Administration Dates Next Due Influenza, Trivalent, IM (MDV) 06/18/2012 Influenza, Unspecified 08/08/2013,07/11/2013 Tdap 06/18/2012 Social History Tobacco Use Types Packs/Day Years Used Date Smoking Tobacco: Never Smokeless Tobacco: Never Tobacco Cessation:Counseling Given: Not Answered Alcohol Use Standard Drinks/Week Comments Yes 0 (1 standard drink = 0.6 oz pur e alcohol) Occasionally AUDIT-C Answer Date Recorded Q1: How often do you have a drink containing alc ohol? Monthly or less 12/24/2020 Average Number of Drinks Not on file Q3: How often do you have si x or more drinks on one occasion? Never 12/24/2020 Personal Safety Answer Date Recorded Getting School Help Needed Not on file 08/31 Comments No Sex and Gender Information Value Date Recorded Sex Assigned at Not on file Legal Sex Female 2:47 AM NURSING CLERK Gender Identity Female 12/19/2020 10:34 PM CDT Sexual Orientation Straight 12/19/2020 10 :34 PM CDT Last Filed Vital Signs Vital Sign Reading Time Taken Comments Blood Pressure 118/60 09/02/2023 10:59 AM NURSING CLERK Pulse 61 09/02/2023 10:59 AM NURSING CLERK Temperature 37.1 C (98.7 F) 08/31/2022 11:22 AM NURSING CLERK Respiratory Rate 20 08/31/2022 11:22 AM NURSING CLERK Oxygen Saturation 98% 09/02/2023 10:59 AM NURSING CLERK Inhaled Oxygen Concentration - - Weight 85.3 kg (188 lb 0.8 oz) 09/30/2023 6:35 A M NURSING CLERK Height 160 cm (5' 3 ) 09/30/2023 6:35 AM NURSING CLERK Body Mass Index 33.31 09/30/2023 6:35 AM NURSING CLERK Plan of Treatment Not on file Insurance [facility] Care Teams Equity Structurer Relationship Specialty Start Date End Date Roland Garcia MD PCP - General 11/11/20
--- OUTSIDE RECORDS SUMMARY | 2025-01-10 11:02 | XMS_ITS | Clinical Summary ---
Author Organization [facility] Maynor smith [facility] Address [address] [place] [address] Care Team Providers Care Shoemaking Cutter Name Role Phone Roland Garcia MD Primary Care Provider [phone] Allergies Active Allergy Reactions Criticality Noted Date Comments Iodides Anaphylaxis High 07/10/2011 Shell fish Shellfish Containing Products Swelling High 06/17/2012 Shellfish Derived Other (See Comments) 09/26/19 21 Sulfa (Sulfonamide Antibiotics) Other (See Comments) 06/17/2012 Triamycin Diarrhea 09/26/2020 Trimethoprim Diarrhea,Fever,Nause a and Vomiting Low 02/26/2021 Medications hydrOXYchloroQ UINE (PLAQUENIL) 200 mg tablet hydroxychloroquine 200 mg tablet TAKE 1 TABLET BY MOUTH TWICE DAILY 10/22/19 21 Active pantoprazole (PROTONIX) 40 mg Tablet, Delayed Release (E.C.) Take 40 mg by mouth daily. Active CHOLECALCIFERO L, VITAMIN D3, ORAL Take 1 Capsule by mouth daily. Active iron/folic ac/vit Bcomp,C/min (B [id number]- FE-FA ORAL) Take by mouth. Act jennifer estradioL (Imvexxy Maintenance Pack) 4 mcg Insert Insert vaginally twice weekly. Active PARoxetine HCl (PAXIL) 10 mg tablet Take 10 mg by mouth daily. Active Active Problems Problem Noted Date Diagnosed Date Chronic idiopathic thrombocytopenic purpura 11/2020 Encounters Date Type Department Care Team Description 01/10/2025 11:00 AM CDT Office Visit [facility] Oncology and Hematology - [place] [address] [facility] [address] [place] [address] Sunny Rincon MD Arrived from Last 3 Months Family History Medical History Relation Name Comments Cancer Mother Diabetes Mother Diabetes Sister 1 Relation Name Status Comments Father Alive Mother Alive Sister 1 Alive Sister 2 Alive Social History Tobacco Use Types Packs/Day Years Used Date Smoking Tobacco: Never Smokeless Tobacco: Never Tobacco Cessation:Counseling Given: Not Answered Alcohol Use Standard Drinks/Week Comments Yes 0 (1 standard drink = 0.6 oz pur e alcohol) Comments Unknown Sex and Gender Information Value Date Recorded Sex Assigned at Not on file Legal Sex Female 5:23 PM AD TERMINAL MAKEUP 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 Gender Identity Not on file Sexual Orientation Not on file Last Filed Vital Signs Vital Sign Reading [...] that this is the correct weight Height 160 cm (5' 3 ) 03/18/2022 10:07 AM CDT Body Mass Index 33.41 03/18/2022 10:07 AM CDT Plan of Treatment Health Maintenance Due Date Last Done Comments Pre-Diabetes and Diabetes Screening 1976 HEPATITIS B VACCINES (1 of 3 - 19+ 3-dose series) 1995 HPV/Cotest (21-29) 1997 HPV/Cotest (30-65) 2006 BREAST CANCER SCREENING 11/12/2020 11/13/2019, 11/12 FIT-DNA Q 3 years 2021 FIT/FOBT Q 1 year 2021 Flex Sig/CT Colonography Q 5 years 2021 DTAP/TDAP/TD VACCINES (2 - T d or Tdap) 06/18/2022 06/18/2012 INFLUENZA VACCINE (#1) 2024 06/18/2012 Preventative Visit-Managed Medicaid 11/04/2024 11/04/2023, 08/27/2022, 07/15/2021, Additional history exists CERVICAL CANCER SCREENING 11/18/2027 PAP SMEAR 11/18/2027 11/17/2024, 10/21, 08/27/2022, Additional history exists COLORECTAL SCREENING 08/22/2031 08/22/2021, 07/10/20 11 Colorectal Cancer Screening 08/22/2031 Insurance [facility] MEDICAID Care Teams Shoemaking Cutter Relationship Specialty Start Date End Date Roland Garcia MD PCP - General Emergency Medicine 09/29/19
== END 2025-01-10 10:26 | disposition home or self-care (01) ==
PROVIDERS: PCP Emergency Medicine; Visit Provider Internal Medicine Hematology & Oncology
DX: D69.3 Immune thrombocytopenic purpura (principal)
CPT/HCPCS: 36415; 80047; 85025

== ENCOUNTER 2025-01-20 17:32 | Emergency (ER) | payer OTHER, SELFPAY ==
[2025-01-20 17:35] VITALS: BP 137/75; PULSE 88; RESP 14; TEMP 36.9; O2SAT 100
--- NOTE | 2025-01-20 17:44 | ED_ITS ---
HPI - URI/Sore Throat General Chief Complaint: Upper Respiratory Infection Stated Complaint: cough Time Seen by Provider: 01/20/25 17:34 Source: patient and family ( ) Mode of arrival: ambulatory Limitations: no limitations History of Present Illness HPI Narrative: 49-year-old female presents to [facility] accompanied by her for complaints of productive cough, chest congestion, chest tightness and shortness of breath for the past 10 days. Patient denies body aches, chills, fever, nausea vomiting or diarrhea. Patient reports her cough is worse at night. Patient's 's was recently diagnosed with bronchitis and was prescribed Zithromax and prednisone. Patient is a nonsmoker. Patient has been taking [id number] Delsym, NyQuil and cough drops with minimal relief MD elicited complaint: cough Onset (ago): day(s) (10) Context: sick contacts Treatments prior to arrival: cold medicine Related Data Allergies Allergy/AdvReac Type Severity Reaction Status Date / Time Sulfa (Sulfonamide Allergy Unknown Hives Verified 01/20/25 17:34 Antibiotics) SHELLFISH Allergy Severe Hives Uncoded 01/20/25 17:34 Review of Systems Constitutional: Constitutional: Denies chills, Denies fatigue, Denies fever(s) and Denies weakness ENT: Denies dysphagia, Denies vertigo, Denies dizziness, Denies epistaxis, Denies nasal congestion and Denies sore throat Respiratory: Respiratory: Reports chest congestion, Reports cough, Reports dyspnea and Denies wheezing Gastrointestinal: Gastrointestinal: Denies diarrhea, Denies nausea and Denies vomiting Musculoskeletal: Musculoskeletal: Denies arthralgias Integumentary/Breasts: Skin/Breast: Denies rash Neurologic: Denies dizziness, Denies syncope and Denies headache(s) PMFSH Past Medical History Medical History MRSA (methicillin resistant staph aureus) culture positive Chronic ITP (idiopathic thrombocytopenia) Kidney stones Surgical History Surgical History H/O tubal ligation Comments At time of signature, I agree with nursing past medical, surgical, social and family history. There is no relevant family history pertinent to the presenting complaint. Exam Const: General: healthy appearing and no acute distress Nutritional Appearance: well nourished Orientation/consciousness: patient oriented x3 Limitations: no limitations HENMT: Head: normal to inspection Ears: external ears normal and TM's normal bilaterally Face and sinus: normal facial exam Mouth: Yes Normal oral and palatal mucosa present, Yes lip normal and Yes moist mucous membranes Teeth and gingiva: dentition normal Throat: posterior oropharynx normal and uvula midline Eyes: Conjunctivae: conjunctivae normal Neck: Neck: normal visual inspection Resp: Effort & Inspection: normal respiratory effort and not labored Auscultation: clear to auscultation bilaterally, no crackles, no rales, no rhonchi and no wheezes Other: frequent harsh nonproductive cough noted Cardio: Rate: regular rate Rhythm: regular rhythm Heart sounds: no murmurs Skin: General skin exam: normal color Rashes: no rashes Neuro: General: patient oriented x3 and moves all extremities Speech: normal speech Gait exam (Neuro): Normal gait present Extrem: General: normal to inspection Psych: Affect: normal affect Attitude: cooperative Course Course Level of Care: Express Care Visit MDM - URI/Sore Throat MDM Narrative Medical decision making narrative: patient agrees to take medications as prescribed. Patient agrees to monitor symptoms closely And agrees to proceed to the emergency room if symptoms worsen. Differential Diagnosis Differential diagnosis: Likely sinusitis, viral infection and bronchitis Critical Care Time Critical Care Time Critical Care Time: No Discharge Plan Discharge Clinical Impression: Upper respiratory infection Qualifiers: URI type: unspecified URI Qualified Code(s): J06.9 - Acute upper respiratory infection, unspecified Patient Disposition: Home Condition: Stable Instructions: Antibiotic Form, Upper Respiratory Infection (ED) Additional Instructions: rest increase fluids take antibiotic and prednisone as prescribed Use inhaler as needed for shortness of breath, wheezing or coughing fits Take cough medication as needed Follow-up with primary care provider if symptoms not improving proceed to the emergency room if symptoms worsen Patient Language: Paraguayan Prescriptions: New azithromycin [Zithromax Z-Dav] 250 mg tablet See Rx Instructions .ROUTE .COMPLEX Qty: 6 0RF Rx Instructions: For 250 mg dose pack: take 500 mg today (day 1), then 250 mg for 4 days (days 2-5) prednisone 20 mg tablet 40 mg PO DAILY 5 Days Qty: 10 0RF benzonatate 100 mg capsule 100 mg PO BID PRN (Reason: cough) Qty: 20 0RF albuterol sulfate [Ventolin HFA] 90 mcg/actuation HFA aerosol inhaler 1 inh inhalation QID PRN (Reason: shortness of breath or wheezing) Qty: 6.7 0RF Follow-up/Referrals: Roland Garcia MD [Primary Care Provider] - Time of Disposition: 17:59
== END 2025-01-20 18:05 | disposition home or self-care (01) ==
PROVIDERS: Emergency Provider Nurse Practitioner Family; PCP Emergency Medicine
DX: J06.9 Acute upper respiratory infection, unspecified (principal)
CPT/HCPCS: 99213; G0463

== ENCOUNTER → 2025-02-01 15:11 | Outpatient (CLI) | payer OTHER, SELFPAY ==
--- NOTE | ~2025-02-01 | XR_ITS ---
Clinical Indication: Rib pain PA and lateral views of the chest: Comparison: 09/09/2023 Findings: The lungs are clear, without evidence of focal consolidation or pleural effusion. Cardiome diastinal silhouette is within normal limits. Bones and soft tissues are unremarkable. Impression: Normal chest. Reviewed, dictated and finalized at location . Impression: Normal chest.
--- NOTE | ~2025-02-01 | XR_ITS ---
AP and oblique views of the bilateral ribs Clinical History: Pain Findings: No rib fracture is seen. Osseous alignment is anatomic. Lungs are clear, without focal cons olidation or pleural effusion. Cardiomediastinal contour is within normal limits. Soft tissues are un remarkable. Impression: No rib fracture is seen. Reviewed, dictated and finalized at [facility]. Impression: No rib fracture is seen.
== END ==
LOC: EXPCRAD 15:14
PROVIDERS: PCP Emergency Medicine; Visit Provider Emergency Medicine
DX: R07.81 Pleurodynia (principal)
CPT/HCPCS: 71046; 71110

== ENCOUNTER 2025-05-04 13:20 | Emergency (ER) | payer OTHER, SELFPAY ==
--- NOTE | ~2025-05-04 | XR_ITS ---
EXAMINATION: XR chest 2V 05/04/2025 13:56 INDICATION: Cough for 2 months PROCEDURE: 2 view chest COMPARISON: Comparison to multiple prior studies sequentially, with oldest reviewed study dated 08/31/2020. FINDINGS: The lungs are clear. The cardiomediastinal silhouette is within normal limits. There are no pleural effusions. There is no pneumothorax suspected. IMPRESSION: 1: NO ACUTE CARDIOPULMONARY DISEASE. Reviewed, dictated and finalized at location O.
[2025-05-04 13:26] VITALS: BP 115/66; PULSE 96; RESP 16; TEMP 36.7; O2SAT 98
--- NOTE | 2025-05-04 13:41 | ED_ITS ---
HPI - URI/Sore Throat General Chief Complaint: Upper Respiratory Infection Stated Complaint: Cough Time Seen by Provider: 05/04/25 13:41 Source: patient Mode of arrival: ambulatory Limitations: no limitations History of Present Illness HPI Narrative: 49 yo F presents with c/o cough for 1 wk. In December had similar cough that shes states never completely went away. Saw her PCP in January and had normal chest x- ray. Pt thinks her sjrogens is affected her lungs. Requesting another chest x- ray. Still has albuterol inhaler from express visit in december. All systems reviewed and negative except as noted above. Related Data Home Medications ?Medication ?Instructions ?Recorded ?Confirmed ?Last Taken ?Type hydroxychloroquine 200 mg tablet mg PO 05/04/25 Unkno wn History paroxetine HCl 10 mg tablet 10 mg PO QAM 05/04/25 Unk nown History Allergies Allergy/AdvReac Type Severity Reaction Status Date / Time Sulfa (Sulfonamide Allergy Unknown Hives Verified 05/04/25 13:42 Antibiotics) SHELLFISH Allergy Severe Hives Uncoded 01/20/25 17:34 [facility] Past Medical History Medical History MRSA (methicillin resistant staph aureus) culture positive Chronic ITP (idiopathic thrombocytopenia) Kidney stones Surgical History Surgical History H/O tubal ligation Comments At time of signature, agree with nursing past medical, surgical, social and family history. There is no relevant family history pertinent to the presenting complaint. Exam Narrative: GENERAL: This is a well-nourished, well-developed patient, in no apparent distress. HEAD: normocephalic, atraumatic. EYES: PERRL. Sclera clear/white. Vision is grossly intact. EARS: External ears normal, auditory canals clear and without drainage, TMs normal without perforation. Hearing grossly intact. NOSE: External nose normal with no obvious nasal discharge, nares without redness, no rhinorrhea. THROAT: Mucous membranes moist, posterior pharynx clear. NECK: Neck supple, non-tender without lymphadenopathy, masses or thyromegaly. CARDIOVASCULAR: Regular rate and rhythm without murmurs, gallops, or rubs. RESPIRATORY: Mildly coarse on expiration throughout all lung quinones. Wheezing to right lower lung field. Breath sounds equal bilaterally. No rales, or rhonchi. SKIN: warm, Dry, intact with no suspicious lesions or rash, good texture and turgor. NEURO: awake, alert, and oriented to person, place and time. There were no obvious focal neurologic abnormalities. EXTREMITIES: No joint tenderness, effusion, or edema noted. Course Course Level of Care: Express Care Visit Vital Signs Vital signs: Vital Signs Temperature 36.7 C 05/04/25 13:26 Pulse Rate 96 05/04/25 13:26 Respiratory Rate 16 05/04/25 13:26 Blood Pressure 115/66 05/04/25 13:26 Pulse Oximetry 98 05/04/25 13:26 Oxygen Delivery Room Air 05/04/25 13:26 Temperature 36.7 C 05/04/25 13:26 Pulse Rate 96 05/04/25 13:26 Respiratory Rate 16 05/04/25 13:26 Blood Pressure 115/66 05/04/25 13:26 Pulse Oximetry 98 05/04/25 13:26 Oxygen Delivery Room Air 05/04/25 13:26 Reviewed MDM - URI/Sore Throat MDM Narrative Medical decision making narrative: chest x-ray negative for pneumonia. Will treat with prednisone. Recommend albuterol inhaler every 4-6 hours as needed. Will follow up with primary care physician for further evaluation of cough for the past 4 months. Differential Diagnosis Differential diagnosis: Likely upper respiratory infection, sinusitis, viral infection and bronchitis Imaging Data My impression: agree with radiologist Radiologist's impression: EXAMINATION: XR chest 2V 05/04/2025 13:56 INDICATION: Cough for 2 months PROCEDURE: 2 view chest COMPARISON: Comparison to multiple prior studies sequentially, with oldest reviewed study dated 08/31/2020. FINDINGS: The lungs are clear. The cardiomediastinal silhouette is within normal limits. There are no pleural effusions. There is no pneumothorax suspected. IMPRESSION: 1: NO ACUTE CARDIOPULMONARY DISEASE. Discharge Plan Discharge Clinical Impression: Acute bronchitis Qualifiers: Bronchitis organism: unspecified organism Qualified Code(s): J20.9 - Acute bronchitis, unspecified Patient Disposition: Home Condition: Stable Instructions: Acute Bronchitis (ED) Additional Instructions: your chest x-ray was normal today. Take medications as prescribed. Continue using albuterol inhaler every 4-6 hours as needed for coughing, wheezing, shortness of breath. Follow-up with your primary care physician for referral to a hse manager. Patient Language: Korean Prescriptions: New prednisone 20 mg tablet 40 mg PO DAILY 5 Days Qty: 10 0RF (DME) Aerochamber Plus Z Stat Spacer See Rx Instructions .Route Qty: 1 0RF Rx Instructions: As directed No Action hydroxychloroquine 200 mg tablet PO paroxetine HCl 10 mg tablet 10 mg PO QAM Follow-up/Referrals: Roland Garcia MD [Primary Care Provider, [facility]] Time of Disposition: 14:19
== END 2025-05-04 14:29 | disposition home or self-care (01) ==
PROVIDERS: Emergency Provider Nurse Practitioner Family; PCP Emergency Medicine
DX: J20.9 Acute bronchitis, unspecified (principal); D69.3 Immune thrombocytopenic purpura; M35.00 Sjogren syndrome, unspecified; Z86.14 Personal history of Methicillin resistant Staphylococcus aureus infection
CPT/HCPCS: 71046; 99213; G0463

== ENCOUNTER 2025-05-07 07:55 | Emergency (ER) | payer OTHER, SELFPAY ==
--- NOTE | ~2025-05-07 | XR_ITS ---
EXAMINATION: XR chest 2V, 05/07/2025 8:22 CDT HISTORY: productive cough COMPARISON: No comparisons available. Technique: 2 views obtained. Findings: Small right middle lobe infiltrate. No pneumothorax. Heart is normal size. Mediastinal and hilar contours are within normal limits. Bony thorax no acute abnormality. Impression: Small right middle lobe pneumonia Reviewed, dictated and finalized at location A. Impression: Small right middle lobe pneumonia
[2025-05-07 08:04] VITALS: BP 135/80; PULSE 92; RESP 20; TEMP 37.4; O2SAT 95
--- OUTSIDE RECORDS SUMMARY | 2025-05-07 08:19 | XMS_ITS | Clinical Summary ---
Author Organization [facility] Address [address] [place] [id number] Care Team Providers Care Railway Track Worker Name Role Phone Unavailable Primary Care Provider Unavailabl e Social History Tobacco Use Types Packs/Day Years Used Date Smoking Tobacco: Never Assessed Comments Unknown Sex and Gender Information Value Date Recorded Sex Assigned at Not on file Legal Sex Female 7:11 PM CDT Gender Identity Not on file Sexual Orientation Not on file Plan of Treatment Health Maintenance Due Date Last Done Comments Cervical Cancer Screening Pa p Smear (Age 30 to 64) Every 3 Years 1976 Colorectal Cancer Screening Colonoscopy (10 Years) 1976 Annual Physical 1979 Hepatitis C 1994 Hepatitis B Vaccines (1 of 3 - 19+ 3-dose series) 1995 Cervical Cancer Screening Pa p with HPV Testing (Age 30 to 64) Every 5 Years 2006 Cervical Cancer Screening with HPV 2006 Mammogram Screening 11/12/2021 11/13/2019 DTaP, Tdap and Td Vaccines ( 2 - Td or Tdap) 06/18/2022 06/18/2012 COVID-19 Vaccine (2023-2 5 season) 2025 Meningococcal B Vaccine Aged Out No l onger eligible based on patient's age to complete this topic Meningococcal Vaccine Aged Out No florinda radha eligible based on patient's age to complete this topic Pneumococcal Vaccine: Pediat rics (0 to 5 Years) and At-Risk Patients (6 to 49 Years) Aged Out No longer eligi ble based on patient's age to complete this topic RSV Immunizations Under 20 Months Aged Out No longer eligible based on patient's age to complete this topic Procedures Procedure Name Priority Date/Time Associated Diagnosis Comments MG SCREENING W EVANGELINA CARLTON DIGI Routine 11/13/2019 10:51 AM CDT Breast cancer screening by mammogram from Last 3 Months or Most Recently Relevant to Health Maintenance Results * MG SCREENING W EVANGELINA CARLTON DIGI (11/13/2019 10:51 AM CDT) Anatomical Region Laterality Modality Breast Bilateral Mammography 11/13/2019 10:5 7 AM CDT Narrative 11/13/2019 10:59 AM CDT IMAGING STUDIES: MG SCREENING W EVANGELINA CARLTON DIGI DATE: 11/13/2019 10:38 AM INDICATION: screening. COMPARISON: 11/11/2018, 11/22/2018. FINDINGS: Bilateral CC and MLO views, digital with CAD. 2-D with 3-D tomosynthesis. Breast compostition: Category C - The breasts are heterogeneously dense, which may obscure small masses. No suspicious microcalcification, worrisome mass or evidence of architectural distortion. No skin thickening or nipple retraction. Benign microcalcifications. CONCLUSION: No mammographic evidence of malignancy. BI-RADS Category 2 - benign findings. Routine screening mammography recommended MQSA BI-RADS Categories: Category 0 - needs additional imaging evaluation. Category 1 - negative. Category 2 - benign findings. Category 3 - probably benign findings, but short interval follow-up is recommended. Category 4 - suspicious abnormality and biopsy should be considered though the lesion may well be benign. Category 5 - highly suggestive of malignancy and appropriate action should be taken. A) A negative report should not delay a biopsy if a dominant or clinically suspicious mass is present. B) Adenosis and dense breasts may obscure an underlying neoplasm. C) Study interpreted with computer aided detection. Interpreted By: Kranthi Banegas, 11/13/2019 10:57 AM Melissa [facility] MAMMO Final Result from Last 3 Months or Most Recently Relevant to Health Maintenance [place] [address] [address] [place] [address]
--- OUTSIDE RECORDS SUMMARY | 2025-05-07 08:19 | XMS_ITS | Clinical Summary ---
Author Organization [facility] Address [address] [place] [address] Care Team Providers Care Silver Spray Worker Name Role Phone Roland Garcia MD Primary Care Provider [phone] Allergies Active Allergy Reactions Criticality Noted Date [...] dx imaging of breast;Recorded Elsewhere: No Location: [facility] Source: EHR Chronic: N Practice ID: [id number] Billable Time: 01:22:31 PM Pelvic and perineal pain 09/05/2018 Overview (02/17/2024): Pelvic and perineal pain;Recorded Elsewhere: No Location: [facility] Source: EHR Chronic: N Practice ID: [id number] Billable Time: 02:30:00 PM Low grade squamous intraepit helial lesion (LGSIL) on Papanicolaou smear of cervix 11/09/2017 Overview (02/17/2024): Low grade intrepith lesion cyto smr crvx (LGSIL);Recorded Elsewhere: No Location: [facility] Source: EHR Chronic: N Practice ID: [id number] Billable Time: 02:00:00 PM On rituximab therapy 07/03/2015 Overview (02/17/2024): Postcoital and contact bleeding;Recorded Elsewhere: No Location: [facility] Source: EHR Chronic: N Practice ID: [id number] Billable Time: 08:15:00 AM Abnormal uterine and vaginal bleeding, unspecified;Recorded Elsewhere: No Location: [facility] Source: EHR Chronic: N Practice ID: [id number] Billable Time: 11:00:00 AM Abnormal uterine and vaginal bleeding, unspecified;Recorded Elsewhere: No Location: [facility] Source: EHR Chronic: N Practice ID: [...] antepartum condition or complication;Recorded Elsewhere: No Location: [facility] Source: EHR Chronic: N Practice ID: [id number] Billable Time: 10:00:00 AM Immune thrombocytopenic purpura 01/14/2011 Overview (02/17/2024): Pt previously on prednisone 30mg daily Increased to 60mg daily per pt. 55K in 02/2012 120k on 04/27/12 Plt 35k with clumping per [facility] prior to transfer Plts reported 95k on admission ANDERS, Cardiolipin Ab - nml Pt previously on prednisone 30mg daily Increased to 60mg daily per pt. 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 Gender Identity Female 12/19/2020 10:34 PM CDT Sexual Orientation Straight 12/19/2020 10 :34 PM CDT Obstetrics History Last Filed Vital Signs Vital Sign Reading Time Taken Comments Blood Pressure 118/60 09/02/2023 10:59 AM ASSISTANT ENGINEER Pulse 61 09/02/2023 10:59 AM ASSISTANT ENGINEER Temperature 37.1 C (98.7 F) 08/31/2022 11:22 AM ASSISTANT ENGINEER Respiratory Rate 20 08/31/2022 11:22 AM ASSISTANT ENGINEER Oxygen Saturation 98% 09/02/2023 10:59 AM ASSISTANT ENGINEER Inhaled Oxygen Concentration - - Weight 85.3 kg (188 lb 0.8 oz) 09/30/2023 6:35 A M ASSISTANT ENGINEER Height 160 cm (5' 3) 09/30/2023 6:35 AM ASSISTANT ENGINEER Body Mass Index 33.31 09/30/2023 6:35 AM ASSISTANT ENGINEER Plan of Treatment Health Maintenance Due Date [...] Td or Tdap) 06/18/2022 Influenza Vaccine (#1) 2025 3, 07/11/2013, 06/18/2012 Insurance [facility] Member Subscriber Plan / Payer (Ef fective 2020-Present) Name:Mary Huggins Relation to Subscriber:Self Name:Joseluis Carloscandace Jimenez Payer ID:[id number] (NAIC) Group ID:Not on file Type:MEDICAID RISK OTHER Address[address] [address] [place], [place] [id number] [place] [address] [facility] Care Teams Silver Spray Worker Relationship Specialty Start Date End Date Roland Garcia MD PCP - General 11/11/20
--- OUTSIDE RECORDS SUMMARY | 2025-05-07 08:19 | XMS_ITS | Clinical Summary ---
Author Organization [facility] Address [address] [place] [address] [place] [address] Care Team Providers Care [employer] Social Science Teacher Name Role Phone Roland Garcia MD Primary Care Provider [phone] Allergies Active Allergy Reactions Criticality Noted Date [...] mouth daily. Active iron/folic ac/vit Bcomp,C/min (B [id number]- FE-FA ORAL) Take by mouth. Act jennifer estradioL (Imvexxy Maintenance Pack) 4 mcg Insert Insert vaginally twice weekly. Active PARoxetine HCl (PAXIL) 10 mg tablet Take 10 mg by mouth daily. Active Active Problems Problem Noted Date Diagnosed Date Chronic idiopathic thrombocytopenic purpura 11/2020 Family History Medical History Relation Name Comments [...] on file Legal Sex Female 5:23 PM .NET PROGRAMMER Gender Identity Not on file Sexual Orientation [...] the correct weight Height 160 cm (5' 3) 03/18/2022 10:07 AM CDT Body Mass Index 33.41 03/18/2022 10:07 AM CDT Plan of Treatment Upcoming Encounters Date Type Department Care Team (Late st Contact Info) Description 10/17/2025 10:00 AM .NET PROGRAMMER Office Visit [facility] Oncology and Hematology - [place] [address] [facility] [address] [place] [address] Sunny Rincon MD [address] [facility] [address] [place] [address] Health Maintenance Due Date Last Done Comments [...] or Tdap) 06/18/2022 06/18/2012 INFLUENZA VACCINE (#1) 2025 06/18/2012 CERVICAL CANCER SCREENING 11/18/2027 PAP SMEAR 11/18/2027 11/17/2024, 10/21, 08/27/2022, Additional history exists COLORECTAL SCREENING 08/23/2031 08/23/2021, 08/22/2021, 07/10/2011 Colorectal Cancer Screening 08/23/2031 Insurance [facility] MEDICAID Care Teams [employer] Social Science Teacher Relationship Specialty Start Date End Date Roland Garcia MD PCP - General Emergency Medicine 09/29/19
--- OUTSIDE RECORDS SUMMARY | 2025-05-07 08:19 | XMS_ITS | Clinical Summary ---
Author Organization [facility] [employer] Address [address] [address] Care Team Providers Care Tray Server Name Role Phone Roland Garcia MD Primary Care Provider [phone] Source Comments [facility] [employer],non-owned Affiliates and Associated Physician Practices is amultiple site organization consisting of ambulatory clinics and hospital sitesin [place], [place], [place] and [place]. This disclosure is being madepursuant to the Care Everywhere program and may not contain all informatio navailable regarding this patient. Last updated [employer] Allergies Active Allergy Reactions Criticality Noted Date Comments Shellfish Allergy 06/17/2012 Sulfa Drugs 06/17/2012 Medications * Be aware that medications may [...] PARoxetine (Paxil) 10 MG tablet 5 Active Progesterone 100 MG capsule 5 Active riTUXimab (RITUXAN IV) Active triamcinolone acetonide (Kenalog) 0.1 % ointmentIndicati ons:Nummular dermatitis Apply to affected area on trunk and extremities twice daily. 30 day supply 30 g 2 Active Active Problems Problem Noted Date Diagnosed Date On rituximab therapy 01/22/2022 Idiopathic thrombocytopenic purpura (ITP) 2021 Rheumatoid arthritis of mult iple sites with [...] on 04/27/12 Plt 35k with clumping per [facility] prior to transfer Plts reported 95k on admission ANDERS, Cardiolipin Ab - nml History of MRSA infection 06/17/2012 Overview (06/19/2012): MRSA cx neg 06/17 Encounters Date Type Department Care Team Description 03/23/2025 1:00 PM CDT Office Visit [facility] - Cosmetic Dermatology [address] , [facility] [address] [place] [address] Karoline Titus DO Rash (Primary Dx); Multiple benign melanocytic nevi of both upper extremities, both lower extremities, and trunk; Seborrheic keratoses; Lentigo; Kwok angioma; Nummular dermatitis 03/19/2025 Travel from Last 3 Months Immunizations Immunization Administration [...] Date Recorded Patient Health Questionnaire-2 Score 0 01/25/2025 Comments No Sex and Gender Information Value Date Recorded Sex Assigned at Female 02/19/2021 10:59 AM CDT Legal Sex Female 5:24 AM 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 Gender Identity Female 02/19/2021 10:59 AM CDT Sexual Orientation Straight 02/19/2021 10 :59 AM CDT Last Filed Vital Signs Vital Sign Reading Time Taken Comments Blood Pressure 106/63 01/25/2025 11:16 AM CDT Pulse 71 01/25/2025 11:16 AM CDT Temperature 36.5 C (97.7 F) 01/25/2025 11:16 AM CDT Respiratory Rate 16 01/25/2025 11:16 AM CDT Oxygen Saturation 99% 01/25/2025 11:16 AM CDT Inhaled Oxygen Concentration - - Weight 83.9 kg (185 lb) 12/11/2024 11:25 AM CDT Height 160 cm (5' 3) 05/10/2024 1:19 PM CDT Body Mass Index 32.77 05/10/2024 1:19 PM CDT Plan of Treatment Upcoming Encounters Date Type Department Care Team (Late st Contact Info) Description 06/11/2025 11:00 AM CDT Office Visit [facility] - Rheumatology [address], [address] [place] [address] Shalonda Sosa MD [address] [place] [address] Health Maintenance Due Date Last Done Comments [...] 19+ 3-dose series) 1995 MAMMOGRAM 11/12/2021 11/13/2019, 11/13/2019 DTAP/TDAP/TD VACCINES (2 - Td or Tdap) 06/18/2022 06/18/2012 COVID-19 VACCINE (1 - season) 2025 INFLUENZA VACCINE (#1) 2025 3, 07/11/2013, 06/18/2012 ZOSTER VACCINE (1 of 2) 2026 PAP SMEAR 11/18/2027 11/17/2024, 10/22, 11/04/2023, Additional history exists SCREENING FOR DIABETES 12/12/2027 [...] Sjogren's syndrome, with unspecified organ involvement (HCC) HIV-1 HIV-2 ANTIBODY RAPID STAT 06/17/2012 8:40 AM CDT from Last 3 Months or Most Recently Relevant to Health Maintenance Results * HEPATITIS SCREEN ACUTE ([facility]) (12/11/2024 2:06 PM CDT) [facility] Hepatitis A Virus Antibody IgM Negative Negative [facility] INSURANCE BILL Comment: A negative anti-HAV IgM result suggests no recent or current HAV infection. Hepatitis B Virus Surface Antigen Negative Negative [facility] INSURANCE BILL Hepatitis B Core Virus Antibody IgM Negative Negative [facility] INSURANCE BILL Hepatitis C Antibody Non Reactive Non Reactive [facility] INSURANCE BILL Comment: Performed at: - [address] [id number] Child Care Specialist: Андрей Orr PhD, Phone: [phone] Interpretation Comment [facility] INSURANCE BILL Comment: Not infected with HCV unless early or acute infection is suspected (which may be delayed in an immunocompromised individual), or other evidence exists to indicate HCV infection. Blood BLOOD SPECIMEN / Unknown 12/11/2024 2:06 PM CDT 12/11/2024 Narrative [facility] INSURANCE BILL - 12/12/2024 7:09 AM CDT Performed at: - [address] [id number] Child Care Specialist: Андрей Orr PhD, Phone: [phone] Shalonda Sosa MD LAB - CHEMISTRY ORDERABLES Final Result [facility] INSURANCE BILL [address] [place] [address] * COMPREHENSIVE METABOLIC PANEL (12/11/2024 2:03 PM CDT) [facility] Glucose 86 70 - 99 mg/dL [facility] [...] - 12/12/2024 7:09 AM CDT Performed at: [address] [place] [address] [address] [place], [place] [id number] Child Care Specialist: Андрей Orr PhD, Phone: [phone] us Shalonda Sosa MD LAB - CHEMISTRY ORDERABLES Final Result [facility] INSURANCE BILL [address] [place] [address] * HIV-1 HIV-2 ANTIBODY RAPID (06/17/2012 8:40 AM CDT) [facility] HIV-1/HIV-2 Rapid Antibody Nonreactive Nonreactive [facility] Blood specimen (specimen) BLOOD SPECIMEN / Unknown 06/17/2012 8:40 AM CDT 06/17/2012 10:10 AM CDT us Veronica Blandon MD LAB - CHEMISTRY ORDERABLE S Final Result [facility] [address] [place] [address] from Last 3 Months or Most Recently Relevant to Health Maintenance Insurance [facility] Advance Directives * FULL RESUSCITATION (Latest Code Status on File) Date Activated Date Inactivated Comments 06/17/2012 8:36 AM 06/19/2012 6:29 PM Care Teams Tray Server Relationship Specialty Start Date End Date Roland Garcia MD [address] [place] [address] PCP - General Family Medicine 10/23/20
[2025-05-07 08:47] VITALS: O2SAT 97
[2025-05-07 09:09] LABS: Influenza A QL RT-PCR Negative (Negative); Influenza B QL RT-PCR Negative (Negative); RSV RNA, RT-PCR Negative (Negative); SARS-CoV-2 RNA PCR Negative (Negative)
--- OUTSIDE RECORDS SUMMARY | 2025-05-07 09:19 | XMS_ITS | Clinical Summary ---
Author Organization [facility] Address [address] [place] [address] Care Team Providers Care Bilingual Manager Name Role Phone Roland Garcia MD Primary Care Provider [phone] Allergies Active Allergy Reactions Criticality Noted Date [...] dx imaging of breast;Recorded Elsewhere: No Location: [facility] Source: EHR Chronic: N Practice ID: [id number] Billable Time: 01:22:31 PM Pelvic and perineal pain 09/05/2018 Overview (02/17/2024): Pelvic and perineal pain;Recorded Elsewhere: No Location: [facility] Source: EHR Chronic: N Practice ID: [id number] Billable Time: 02:30:00 PM Low grade squamous intraepit helial lesion (LGSIL) on Papanicolaou smear of cervix 11/09/2017 Overview (02/17/2024): Low grade intrepith lesion cyto smr crvx (LGSIL);Recorded Elsewhere: No Location: [facility] Source: EHR Chronic: N Practice ID: [id number] Billable Time: 02:00:00 PM On rituximab therapy 07/03/2015 Overview (02/17/2024): Postcoital and contact bleeding;Recorded Elsewhere: No Location: [facility] Source: EHR Chronic: N Practice ID: [id number] Billable Time: 08:15:00 AM Abnormal uterine and vaginal bleeding, unspecified;Recorded Elsewhere: No Location: [facility] Source: EHR Chronic: N Practice ID: [id number] Billable Time: 11:00:00 AM Abnormal uterine and vaginal bleeding, unspecified;Recorded Elsewhere: No Location: [facility] Source: EHR Chronic: N Practice ID: [...] antepartum condition or complication;Recorded Elsewhere: No Location: [facility] Source: EHR Chronic: N Practice ID: [id number] Billable Time: 10:00:00 AM Immune thrombocytopenic purpura 01/14/2011 Overview (02/17/2024): Pt previously on prednisone 30mg daily Increased to 60mg daily per pt. 55K in 02/2012 120k on 04/27/12 Plt 35k with clumping per [facility] prior to transfer Plts reported 95k on admission ANDERS, Cardiolipin Ab - nml Pt previously on prednisone 30mg daily Increased to 60mg daily per pt. 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 Gender Identity Female 12/19/2020 10:34 PM CDT Sexual Orientation Straight 12/19/2020 10 :34 PM CDT Obstetrics History Last Filed Vital Signs Vital Sign Reading Time Taken Comments Blood Pressure 118/60 09/02/2023 10:59 AM CRIME VICTIM SPECIALIST Pulse 61 09/02/2023 10:59 AM CRIME VICTIM SPECIALIST Temperature 37.1 C (98.7 F) 08/31/2022 11:22 AM CRIME VICTIM SPECIALIST Respiratory Rate 20 08/31/2022 11:22 AM CRIME VICTIM SPECIALIST Oxygen Saturation 98% 09/02/2023 10:59 AM CRIME VICTIM SPECIALIST Inhaled Oxygen Concentration - - Weight 85.3 kg (188 lb 0.8 oz) 09/30/2023 6:35 A M CRIME VICTIM SPECIALIST Height 160 cm (5' 3) 09/30/2023 6:35 AM CRIME VICTIM SPECIALIST Body Mass Index 33.31 09/30/2023 6:35 AM CRIME VICTIM SPECIALIST Plan of Treatment Health Maintenance Due Date [...] Vaccine (#1) 2025 3, 07/11/2013, 06/18/2012 Insurance [facility] Member Subscriber Plan / Payer (Ef fective 2020-Present) Name:Mary Huggins Relation to Subscriber:Self Name:Joseluis Carloscandace Jimenez Payer ID:[id number] (NAIC) Group ID:Not on file Type:MEDICAID RISK OTHER Address: [address] [place], [place] [id number] [place] [address] [facility] Care Teams Bilingual Manager Relationship Specialty Start Date End Date Roland Garcia MD PCP - General 11/11/20
--- OUTSIDE RECORDS SUMMARY | 2025-05-07 09:19 | XMS_ITS | Clinical Summary ---
Author Organization [facility] Address [address] [place] [address] [place] [address] Care Team Providers Care Rag Shredder Name Role Phone Roland Garcia MD Primary Care Provider [phone] Allergies Active Allergy Reactions Criticality Noted Date [...] mouth daily. Active iron/folic ac/vit Bcomp,C/min (B [id number]- FE-FA ORAL) Take by mouth. Act jennifer [...] on file Legal Sex Female 5:23 PM PEDIATRICS HOSPITALIST Gender Identity Not on file Sexual Orientation [...] st Contact Info) Description 10/17/2025 10:00 AM PEDIATRICS HOSPITALIST Office Visit [facility] Oncology and Hematology - [place] [address] [facility] [address] [place] [address] Sunny Rincon MD [address] [facility] [address] [address] [place] [address] Health Maintenance Due Date Last [...] 08/22/2021, 07/10/2011 Colorectal Cancer Screening 08/23/2031 Insurance [facility] MEDICAID Care Teams Rag Shredder Relationship Specialty Start Date End Date Roland Garcia MD PCP - General Emergency Medicine 09/29/19
--- OUTSIDE RECORDS SUMMARY | 2025-05-07 09:19 | XMS_ITS | Clinical Summary ---
Author Organization [facility] Address [address] [place] [address] Care Team Providers Care Engineering Production Liaison Name Role Phone Unavailable Primary Care Provider [...] Most Recently Relevant to Health Maintenance [place] [address] [place] [address]
--- OUTSIDE RECORDS SUMMARY | 2025-05-07 09:19 | XMS_ITS | Clinical Summary ---
Author Organization [facility] [employer] Address [address] [place] [address] Care Team Providers Care Land Sales Agent Name Role Phone Roland Garcia MD Primary Care Provider [phone] Source Comments [facility] [employer],non-owned Affiliates and Associated Physician Practices is amultiple site organization consisting of ambulatory clinics and hospital sitesin [place], [place], [place] and [place]. This disclosure is being madepursuant to the Care Everywhere program and may not contain all informatio navailable regarding this patient. Last updated 18.[employer] Allergies Active Allergy Reactions Criticality Noted Date [...] on 04/27/12 Plt 35k with clumping per [facility] prior to transfer Plts reported 95k on admission ANDERS, Cardiolipin Ab - nml History of MRSA infection 06/17/2012 Overview (06/19/2012): MRSA cx neg 06/17 Encounters Date Type Department Care Team Description 03/23/2025 1:00 PM CDT Office Visit [facility] - Cosmetic Dermatology [address] [facility] [address] [place] [address] Karoline Titus DO Rash (Primary [...] AM CDT Legal Sex Female 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 Hepatitis B Virus Surface Antigen Negative Negative [facility] INSURANCE BILL Hepatitis B Core Virus Antibody IgM Negative Negative [facility] INSURANCE BILL Hepatitis C Antibody Non Reactive Non Reactive [facility] INSURANCE BILL Comment: Performed at: - [address] [id number] Sheep Sorter: Андрей Orr PhD, Phone: [phone] Interpretation Comment [facility] INSURANCE BILL Comment: Not infected with HCV unless early or acute infection is suspected (which may be delayed in an immunocompromised individual), or other evidence exists to indicate HCV infection. Blood BLOOD SPECIMEN / Unknown 12/11/2024 2:06 PM CDT 12/11/2024 Narrative [facility] INSURANCE BILL - 12/12/2024 7:09 AM CDT Performed at: - [address] [id number] Sheep Sorter: Андрей Orr PhD, Phone: [phone] Shalonda Sosa MD LAB - CHEMISTRY ORDERABLES Final Result [facility] INSURANCE BILL [address] [place] [address] * COMPREHENSIVE METABOLIC PANEL (12/11/2024 2:03 PM CDT) [facility] Glucose 86 70 - 99 mg/dL [facility] [...] - 12/12/2024 7:09 AM CDT Performed at: [address] [place] [address] [address] [place], [place] [id number] Sheep Sorter: Андрей Orr PhD, Phone: [phone] us Shalonda Sosa MD LAB - CHEMISTRY ORDERABLES Final Result [facility] INSURANCE BILL [address] [place] [address] * HIV-1 HIV-2 ANTIBODY RAPID (06/17/2012 8:40 AM CDT) [facility] HIV-1/HIV-2 Rapid Antibody Nonreactive Nonreactive [facility] Blood specimen (specimen) BLOOD SPECIMEN / Unknown 06/17/2012 8:40 AM CDT 06/17/2012 10:10 AM CDT us Veronica Blandon MD LAB - CHEMISTRY ORDERABLE S Final Result [facility] [address] [place] [address] from Last 3 Months or Most Recently Relevant to Health Maintenance Insurance [facility] Advance Directives * FULL RESUSCITATION (Latest Code Status on File) Date Activated Date Inactivated Comments 06/17/2012 8:36 AM 06/19/2012 6:29 PM Care Teams Land Sales Agent Relationship Specialty Start Date End Date Roland Garcia MD [address] [place] [address] PCP - General Family Medicine 10/23/20
--- NOTE | 2025-05-07 09:29 | ED_ITS ---
HPI - URI/Sore Throat General Chief Complaint: Upper Respiratory Infection Stated Complaint: cough, upper respiratory s/s Time Seen by Provider: 05/07/25 08:42 Source: patient Mode of arrival: ambulatory Limitations: no limitations History of Present Illness HPI Narrative: Patient presents with report of a cough and in general concern for upper respiratory infection. Patient states that in December she was diagnosed with the flu and underwent treatment but then had recurrence of this issue in February in general feels like she is still having symptoms. Feels like they have been getting worse in the past week. She is a nonsmoker. She denies any underlying respiratory conditions before this. She has been having a cough productive of green sputum. Intermittently she feels short of breath. Urgent care prescribed her steroids and an inhaler on Wednesday. She has underlying autoimmune issues including rheumatoid arthritis, Sjogren's, as well as having idiopathic thrombocytopenia. She receives Rituxin infusions. She will occasionally experience chest pain when she coughs. She has not had any edema, either bilaterally or unilaterally. No hemoptysis. No recent surgery or trauma. No previous PE or DVT. She is not on any oral control or other hormonal medications. She is on Paxil. She is feeling fatigued with how much she has been coughing and his experiencing hoarseness currently. She also notes that she has a rash on her right forearm as well as some other lesions in other areas of her body. Related Data Home Medications ?Medication ?Instructions ?Recorded ?Confirmed ?Last Taken ?Type hydroxychloroquine 200 mg tablet mg PO 05/04/25 Unkno wn History paroxetine HCl 10 mg tablet 10 mg PO QAM 05/04/25 Unk nown History Allergies Allergy/AdvReac Type Severity Reaction Status Date / Time Sulfa (Sulfonamide Allergy Unknown Hives Verified 05/07/25 08:08 Antibiotics) SHELLFISH Allergy Severe Hives Uncoded 01/20/25 17:34 [facility] Past Medical History Medical History Sjogren syndrome Rheumatoid arthritis MRSA (methicillin resistant staph aureus) culture positive Chronic ITP (idiopathic thrombocytopenia) Kidney stones Surgical History Surgical History H/O tubal ligation Social History Social History Smoking status: Never smoker Exam Narrative: GENERAL: well-nourished, and in no acute distress although appears to not feel well HEAD: Normocephalic, atraumatic. EYES: Non injected, non icteric ENT: Nares clear, no rhinorrhea or epistaxis. Gross auditory acuity intact. Dysphonia. NECK: Supple. No meningismus. CHEST: Speaking in full sentences. No respiratory distress. No wheezes or crackles. HEART: Regular rate and rhythm. ABDOMEN: Soft, nondistended. EXTREMITIES: Normal range of motion. No lower extremity edema. SKIN: Warm, dry. Classic appearing tinea corporis on right forearm given the well-circumscribed circular appearance with raised scaly borders and a slightly central clearing. The smaller lesions she points out in other areas of the body not appear similarly. NEURO: No focal deficits. Alert and oriented. Answering questions. Following commands. Normal speech without aphasia or dysarthria. PSYCH: Normal mood and affect. Course Vital Signs Vital signs: Vital Signs Temperature 99.3 F 05/07/25 08:04 Pulse Rate 92 05/07/25 08:04 Respiratory Rate 20 05/07/25 08:04 Blood Pressure 135/80 05/07/25 08:04 Pulse Oximetry 95 05/07/25 08:04 Oxygen Delivery Room Air 05/07/25 08:04 Temperature 99.3 F 05/07/25 08:04 Pulse Rate 92 05/07/25 08:04 Respiratory Rate 20 05/07/25 08:04 Blood Pressure 135/80 05/07/25 08:04 Pulse Oximetry 97 05/07/25 08:47 Oxygen Delivery Room Air 05/07/25 08:47 MDM - URI/Sore Throat MDM Narrative Medical decision making narrative: Patient presents with report of a cough and feeling fatigued. She has had cough productive of green sputum. She reports having the flu in December and then again in February and feels like her symptoms have lingered but have been particularly worse over past week. She has become hoarse and intermittently short of breath. In the emergency department they are afebrile with vital signs within normal limits. PERC Rule Age greater than or equal to 50:0 HR greater than or equal to 100:0 O2 sat room air <95%:0 Unilateral leg swellin Hemoptysis:0 Recent surgery or trauma less than 4 wks ago requiring tx with general anesthesia:0 Prior PE or DVT:0 Hormone use (OCP, HRT or estrogenic hormone use in M/F patients): 0 Will defer further workup for PE. Will obtain EKG given she notes chest pain although notably it only occurs when coughing. Right middle lobe pneumonia. viral swab negative. Suspect/probable simple pneumonia [versus complex = aspiration, gram negative, staphylococcal, legionnaire's, TB, fungal, empyema, abscess] DRIP Score - predicts risk for CAP d/t drug-resistant pathogens Antibiotic use within 60 days (No 0, Yes +2): 0 [facility] care resident (No 0, Yes +2):0 Tube feeding (No 0, Yes +2)0 Prior drug-resistant pneumonia Dx within 1 year (No 0, Yes +2)0 Hospitalization within 60 days (No 0, Yes +1):0 Chronic pulmonary disease (No 0, Yes +1):0 Poor functional status (No 0, Yes +1):0 H2 yulissa or PPI within 14 days (No 0, Yes +1):1 Active wound care at time of admission (No 0, Yes +1): ?1 (ringworm and other eczema lesions on legs) MRSA colonization within 1 year (No 0, Yes +1): 0 (history but not in past 1 year) Total: 2 Outpatient score <4 prescribe, will prescribe doxycycline. Given comorbidities of autoimmune conditions, will add beta-lactam (high-dose extended-release amox/clavulante). First dose given in the ED; rest of course prescribed along with benzonatete and cepacol lozenges. Meanwhile, the rash on her arm is distinctly characteristic of tinea corporis. Prescribed clotrimazole cream for this. She is otherwise stable for discharge to trial outpatient PO antibiotics to treat her PNA given otherwise a generally healthy female who is not elderly and saturating appropriately on room air, though recognize she has autoimmune conditions so advised returning if not improving and/or worsening. Advised follow up. Differential Diagnosis Differential diagnosis: Likely upper respiratory infection, viral infection, bronchitis, influenza and other (PNA; considered PE; ) Lab Data Attestation: I reviewed the patient's lab results. Labs: Lab Results 05/07/25 Range/Units 08:14 Influenza A (RT-PCR) Negative (Negative) Influenza B (RT-PCR) Negative (Negative) RSV (RT-PCR) Negative (Negative) SARS-CoV-2 RNA (RT-PCR) Negative (Negative) Imaging Data Radiologist's impression: Impressions Chest X-Ray 05/07/25 08:38 Impression: Small right middle lobe pneumonia ECG Data EKG #1: Attestation: I personally reviewed and interpreted this ECG as follows: ECG completion date: 05/07/25 ECG completion time: 10:05 Interpretation: normal sinus rhythm at a rate of 89 beats per minute. PA interval 162. QRS 105. QT /QTC 342/416. Good R-wave progression across the precordial leads. No T-wave inversions. Left axis deviation (QRS is positive with dominant R wave in Lead I; QRS is negative with dominant S wave in leads II, III, and aVF). IncompleteRBBB given QRS less [id number]; RSR' M-shaped pattern in V1-V3; to a lesser extent wide, slurred S wave in lateral leads (I, aVL, V5-6). Unable to load EKG image but SINUS RHYTHM POSSIBLE LEFT ATRIAL ENLARGEMENT INCOMPLETE RIGHT BUNDLE BRANCH BLOCK LEFT ANTERIOR FASCICULAR BLOCK BASELINE ARTIFACT- I, III, AVR, AVL, AVF ABNORMAL ECG Electronically Signed On 08-31-2020 14:22:08 [employer] by Bishnu May D.O. Discharge Plan Discharge Clinical Impression: Right middle lobe pneumonia, Tinea corporis, Chronic cough, Laryngitis Patient Disposition: Home Condition: Stable Instructions: Antibiotic Form, Tinea Corporis (ED), Chronic Cough (ED), Pneumonia (ED) Additional Instructions: take the combination of antibiotics for the pneumonia. Tessalon Perles and lozenges have also been prescribed for your symptoms. Use the clotrimazole cream on your right forearm. follow-up with primary care physician. Return to the emergency department with any new or worsening symptoms Patient Language: Monegasque Prescriptions: New benzonatate 100 mg capsule 100 mg PO BID PRN (Reason: cough) Qty: 20 0RF Cepacol Sore Throat-Cough 5-7.5 mg lozenge 1 salbador PO Q4H PRN (Reason: cough) Qty: 16 0RF doxycycline hyclate 100 mg capsule 100 mg PO DAILY 4 Days Qty: 4 0RF Rx Instructions: rec'd first dose in ED 05/07; can substitute w/ tablets if needed amoxicillin-pot clavulanate 875-125 mg tablet 1 tablet PO Q12H 5 Days Qty: 9 0RF Rx Instructions: Received 1st dose in emergency department 05/07 AM clotrimazole 1 % cream 1 applic topical BID 28 Days Qty: 15 0RF No Action hydroxychloroquine 200 mg tablet PO paroxetine HCl 10 mg tablet 10 mg PO QAM prednisone 20 mg tablet 40 mg PO DAILY 5 Days Qty: 10 0RF (DME) Aerochamber Plus Z Stat Spacer See Rx Instructions .Route Qty: 1 0RF Rx Instructions: As directed Follow-up/Referrals: Roland Garcia MD [Primary Care Provider, Family Practice] Stand Alone Forms: Work/School Release IP Time of Disposition: 10:23
--- NOTE | 2025-05-07 09:40 | ECG_ITS ---
Test Date: 2025-05-07 10:05:32 Measurements Intervals [place] Rate: 89 P: 54 RI: 162 QRS: -35 QRSD: 105 T: 48 QT: 342 QTc: 416 Interpretive Statements SINUS RHYTHM LEFT AXIS DEVIATION [QRS AXIS < -30] INCOMPLETE RIGHT BUNDLE BRANCH BLOCK [90+ ms QRS DURATION, TERMINAL R IN V1/V2, 40+ ms S IN I/aVL/V4/V5/V6] SEPTAL MYOCARDIAL INFARCTION , OF INDETERMINATE AGE [40+ ms Q WAVE IN V1/V2] ABNORMAL ECG No previous ECG available for comparison Electronically Signed On 05-07-2025 11:17:19 CDT by Rafael Escalante M.D.
[2025-05-07] MEDS: DOXYCYCLINE HYCLATE 100 MG TABLET PO (11:08)
[2025-05-07] MEDS: BENZOCAINE/MENTHOL (*BKC) 18 EA LOZENGE 1 LOZENGE PO (11:08)
[2025-05-07] MEDS: BENZONATATE 100 MG CAPSULE PO (11:08)
== END 2025-05-07 11:16 | disposition home or self-care (01) ==
PROVIDERS: Emergency Provider Student in an Organized Health Care Education/Training Program; PCP Emergency Medicine
DX: J18.9 Pneumonia, unspecified organism (principal); B35.4 Tinea corporis; R05.3 Chronic cough; J04.0 Acute laryngitis; M06.9 Rheumatoid arthritis, unspecified; Z79.899 Other long term (current) drug therapy; Z20.822 Contact with and (suspected) exposure to COVID-19
CPT/HCPCS: 71046; 87637; 93005; 99283; A9270

== ENCOUNTER 2025-05-10 13:43 | Emergency (ER) | payer OTHER, SELFPAY ==
--- NOTE | ~2025-05-10 | XR_ITS ---
Examination: XR chest 2V Clinical History: recent pneumonia Comparison: 05/07/2025 Technique: PA and Lateral Findings: Cardiomediastinal silhouette normal size and configuration. Minimal, if any, residual airspace disease right base. Lungs otherwise clear. No acute bony abnormality. IMPRESSION: 1. No acute cardiopulmonary findings. Reviewed, dictated and finalized at location R.
--- NOTE | ~2025-05-10 | CT_ITS ---
EXAMINATION: CTA chest PE protocol DATE: 05/10/2025 19:46 INDICATION: Chest pain. Elevated d-dimer. TECHNIQUE: Computed tomography (CT) pulmonary angiogram of the chest was performed with 100 mL Omnipaque-350 intravenous contrast. Additional 3D reconstructions utilizing coronal maximum intensity projection (MIP) were performed. Automated exposure control and iterative reconstruction technique were employed. The dose-length product was 286.42 mGy-cm. COMPARISON: None FINDINGS: No pulmonary embolism. Mild dependent atelectasis in the bilateral lower lobes. No pneumonia, pulmonary edema or pleural effusion. Heart size is normal. No pericardial effusion. Thoracic aorta is normal in caliber with no dissection. No pathologically enlarged thoracic lymphadenopathy. Small regions of cortical scarring at the floor of the right kidney likely sequela of prior infection or infarction. 2 mm nonobstructing stone at the upper pole of the left kidney.. Mild likely physiologic anterior wedging at T12. IMPRESSION: 1. No pulmonary embolism or other acute cardiopulmonary disease. 2. Nonobstructing 2 mm left renal stone. Reviewed, dictated and finalized at location A.
--- OUTSIDE RECORDS SUMMARY | 2025-05-10 13:45 | XMS_ITS | Clinical Summary ---
Author Organization [facility] Address [address] [place] [address] Care Team Providers Care Foot Roentgenologist Name Role Phone Roland Garcia MD Primary Care Provider [phone] Source Comments [facility],non-owned Affiliates and Associated Physician Practices is amultiple site organization consisting of ambulatory clinics and hospital sitesin [place], [place] and [place]. This disclosure is being madepursuant to the Care Everywhere program and may not contain all informatio navailable regarding this patient. Last updated 18.[employer] [facility] Allergies Active Allergy Reactions Criticality Noted Date [...] on 04/27/12 Plt 35k with clumping per [facility] prior to transfer Plts reported 95k on admission ANDERS, Cardiolipin Ab - nml History of MRSA infection 06/17/2012 Overview (06/19/2012): MRSA cx neg 06/17 Encounters Date Type Department Care Team Description 03/23/2025 1:00 PM CDT Office Visit [facility] - Cosmetic Dermatology [address] , [facility] [address] [place] [address] Karoline Titus DO Rash (Primary [...] AM CDT Legal Sex Female 5:24 AM FLUX MIXER Gender Identity Female 02/19/2021 10:59 AM CDT [...] 11:00 AM CDT Office Visit [facility] - Rheumatology [address], [address] [place] [address] Shalonda Sosa MD [address] [place] [address] Health Maintenance Due Date Last [...] SCREEN ACUTE ([facility]) (12/11/2024 2:06 PM CDT) [facility] Hepatitis A Virus Antibody IgM Negative Negative [facility] INSURANCE BILL Comment: A negative anti-HAV IgM result suggests no recent or current HAV infection. Hepatitis B Virus Surface Antigen Negative Negative [facility] INSURANCE BILL Hepatitis B Core Virus Antibody IgM Negative Negative [facility] INSURANCE BILL Hepatitis C Antibody Non Reactive Non Reactive [facility] INSURANCE BILL Comment: Performed at: - [address] [id number] Sewing Machinist: Андрей Orr PhD, Phone: [phone] Interpretation Comment [facility] INSURANCE BILL Comment: Not infected with HCV unless early or acute infection is suspected (which may be delayed in an immunocompromised individual), or other evidence exists to indicate HCV infection. Blood BLOOD SPECIMEN / Unknown 12/11/2024 2:06 PM CDT 12/11/2024 Narrative [facility] INSURANCE BILL - 12/12/2024 7:09 AM CDT Performed at: - [address] [id number] Sewing Machinist: Андрей Orr PhD, Phone: [phone] Shalonda Sosa MD LAB - CHEMISTRY ORDERABLES Final Result [facility] INSURANCE BILL [address] [place] [address] * COMPREHENSIVE METABOLIC PANEL (12/11/2024 2:03 PM CDT) [facility] Glucose 86 70 - 99 mg/dL [facility] [...] - 12/12/2024 7:09 AM CDT Performed at: [address] [place] [address] [address] [place], [place] [id number] Sewing Machinist: Андрей Orr PhD, Phone: [phone] us Shalonda Sosa MD LAB - CHEMISTRY ORDERABLES Final Result [facility] INSURANCE BILL [address] [place] [address] * HIV-1 HIV-2 ANTIBODY RAPID (06/17/2012 8:40 AM CDT) [facility] HIV-1/HIV-2 Rapid Antibody Nonreactive Nonreactive [facility] Blood specimen (specimen) BLOOD SPECIMEN / Unknown 06/17/2012 8:40 AM CDT 06/17/2012 10:10 AM CDT us Veronica Blandon MD LAB - CHEMISTRY ORDERABLE S Final Result [facility] [address] [place] [address] from Last 3 Months or Most Recently Relevant to Health Maintenance Insurance [facility] Advance Directives * FULL RESUSCITATION (Latest Code Status on File) Date Activated Date Inactivated Comments 06/17/2012 8:36 AM 06/19/2012 6:29 PM Care Teams Foot Roentgenologist Relationship Specialty Start Date End Date Roland Garcia MD [address] [place] [id number] PCP - General Family Medicine 10/23/20
--- OUTSIDE RECORDS SUMMARY | 2025-05-10 13:45 | XMS_ITS | Encounter Summary ---
Author Organization [facility] Address [address] [place] [address] Care Team Providers Care Core Drier Name Role Phone Roland Garcia MD Primary Care Provider [phone] Encounter Details Date Type Department Care Team (Late st Contact Info) Description 05/09/2025 External Device Data [facility] AB[facility]CTION Provider, Abstract NO ADDRESS ON FILE Social History Tobacco Use Types Packs/Day Years Used Date Smoking Tobacco: Never Smokeless Tobacco: Never Alcohol Use Standard Drinks/Week Comments Yes 0 (1 standard drink = 0.6 oz pur e alcohol) Comments Unknown Sex and Gender Information Value Date Recorded Sex Assigned at Not on file Legal Sex Female 5:23 PM MANAGER FOREIGN Gender Identity Not on file Sexual Orientation Not on file documented as of this encounter Plan of Treatment Upcoming Encounters Date Type Department Care Team (Late st Contact Info) Description 10/17/2025 10:00 AM MANAGER FOREIGN Office Visit [facility] Oncology and Hematology - [place] [address] [place] [address] Sunny Rincon MD [address] [place] [address] documented as of this encounter Visit Diagnoses Not on filedocumented in this encounter Care Teams Core Drier Relationship Specialty Start Date End Date Roland Garcia MD PCP - General Emergency Medicine 09/29/19 documented as of this encounter
--- OUTSIDE RECORDS SUMMARY | 2025-05-10 13:45 | XMS_ITS | Clinical Summary ---
Author Organization [facility] Address [address] [place] [address] Care Team Providers Care Household Personal Assistant Name Role Phone Roland Garcia MD Primary Care Provider Allergies Active Allergy Reactions Criticality Noted Date [...] dx imaging of breast;Recorded Elsewhere: No Location: [facility] Source: EHR Chronic: N Practice ID: [id number] Billable Time: 01:22:31 PM Pelvic and perineal pain 09/05/2018 Overview (02/17/2024): Pelvic and perineal pain;Recorded Elsewhere: No Location: [facility] Source: EHR Chronic: N Practice ID: [id number] Billable Time: 02:30:00 PM Low grade squamous intraepit helial lesion (LGSIL) on Papanicolaou smear of cervix 11/09/2017 Overview (02/17/2024): Low grade intrepith lesion cyto smr crvx (LGSIL);Recorded Elsewhere: No Location: [facility] Source: EHR Chronic: N Practice ID: [id number] Billable Time: 02:00:00 PM On rituximab therapy 07/03/2015 Overview (02/17/2024): Postcoital and contact bleeding;Recorded Elsewhere: No Location: [facility] Source: EHR Chronic: N Practice ID: [id number] Billable Time: 08:15:00 AM Abnormal uterine and vaginal bleeding, unspecified;Recorded Elsewhere: No Location: [facility] Source: EHR Chronic: N Practice ID: [id number] Billable Time: 11:00:00 AM Abnormal uterine and vaginal bleeding, unspecified;Recorded Elsewhere: No Location: [facility] Source: EHR Chronic: N Practice ID: [...] antepartum condition or complication;Recorded Elsewhere: No Location: [facility] Source: EHR Chronic: N Practice ID: [id number] Billable Time: 10:00:00 AM Immune thrombocytopenic purpura 01/14/2011 Overview (02/17/2024): Pt previously on prednisone 30mg daily Increased to 60mg daily per pt. 55K in 02/2012 120k on 04/27/12 Plt 35k with clumping per [facility] prior to transfer Plts reported 95k on admission ANDERS, Cardiolipin Ab - nml Pt previously on prednisone 30mg daily Increased to 60mg daily per pt. 55K in 02/2012 120k on 04/27/12 Plt 35k with clumping per [facility] prior to transfer Plts reported 95k on [...] on file Legal Sex Female 2:47 AM WRITING CENTER DIRECTOR Gender Identity Female 12/19/2020 10:34 PM CDT Sexual Orientation Straight 12/19/2020 10 :34 PM CDT Obstetrics History Last Filed Vital Signs Vital Sign Reading Time Taken Comments Blood Pressure 118/60 09/02/2023 10:59 AM WRITING CENTER DIRECTOR Pulse 61 09/02/2023 10:59 AM WRITING CENTER DIRECTOR Temperature 37.1 C (98.7 F) 08/31/2022 11:22 AM WRITING CENTER DIRECTOR Respiratory Rate 20 08/31/2022 11:22 AM WRITING CENTER DIRECTOR Oxygen Saturation 98% 09/02/2023 10:59 AM WRITING CENTER DIRECTOR Inhaled Oxygen Concentration - - Weight 85.3 kg (188 lb 0.8 oz) 09/30/2023 6:35 A M WRITING CENTER DIRECTOR Height 160 cm (5' 3) 09/30/2023 6:35 AM WRITING CENTER DIRECTOR Body Mass Index 33.31 09/30/2023 6:35 AM WRITING CENTER DIRECTOR Plan of Treatment Health Maintenance Due Date [...] 06/18/2012 Insurance [facility] Member Subscriber Plan / Payer (Ef fective 2020-Present) Name:Mary Huggins Relation to Subscriber:Self Name:Joseluis Carloscandace Jimenez Payer ID:[id number] (NAIC) Group ID:Not on file Type:MEDICAID RISK OTHER Address: [address] [place], [place] [id number] [place] [address] [facility] Care Teams Household Personal Assistant Relationship Specialty Start Date End Date Roland Garcia MD PCP - General 11/11/20
--- OUTSIDE RECORDS SUMMARY | 2025-05-10 13:45 | XMS_ITS | Clinical Summary ---
Author Organization [facility] Maynor smith [facility] Address [address] [place] [address] [place] [address] Care Team Providers Care Industrial Maintenance Repairer Helper Name Role Phone Roland Garcia MD Primary Care Provider [phone] Allergies Active Allergy Reactions Criticality Noted Date [...] mouth daily. Active iron/folic ac/vit Bcomp,C/min (B [id number]- FE-FA ORAL) Take by mouth. Act jennifer estradioL (Imvexxy Maintenance Pack) 4 mcg Insert Insert vaginally twice weekly. Active PARoxetine HCl (PAXIL) 10 mg tablet Take 10 mg by mouth daily. Active Active Problems Problem Noted Date Diagnosed Date Chronic idiopathic thrombocytopenic purpura 11/2020 Encounters Date Type Department Care Team Description 05/09/2025 External Device Data [facility] ABSTRACTION Provider, Abstract from Last 3 Months Family History Medical [...] on file Legal Sex Female 5:23 PM MATERIALS MANAGEMENT CLERK Gender Identity Not on file Sexual Orientation [...] st Contact Info) Description 10/17/2025 10:00 AM MATERIALS MANAGEMENT CLERK Office Visit [facility] Oncology and Hematology - [place] [address] [place] [address] [facility] [address] [place] [address] Sunny Rincon MD [address] [place] [address] Health Maintenance Due Date Last [...] 08/22/2021, 07/10/2011 Colorectal Cancer Screening 08/23/2031 Insurance [facility] MEDICAID Care Teams Industrial Maintenance Repairer Helper Relationship Specialty Start Date End Date Roland Garcia MD PCP - General Emergency Medicine 09/29/19
--- OUTSIDE RECORDS SUMMARY | 2025-05-10 13:45 | XMS_ITS | Clinical Summary ---
Author Organization [facility] Address [address] [place] [address] Care Team Providers Care Bench Assembler Operator Name Role Phone Unavailable Primary Care Provider [...] Most Recently Relevant to Health Maintenance Insurance [place] [address]
[2025-05-10 13:47] VITALS: BP 123/82; PULSE 101; RESP 16; TEMP 37.1; O2SAT 98
--- NOTE | 2025-05-10 13:49 | ECG_ITS ---
Test Date: 2025-05-10 18:12:32 Measurements Intervals [place] Rate: 87 P: 47 [place]: 154 QRS: -42 QRSD: 101 T: 33 QT: 346 QTc: 417 Interpretive Statements SINUS RHYTHM WITH SINUS ARRHYTHMIA POSSIBLE LEFT ATRIAL ENLARGEMENT [-0.1mV P-WAVE IN V1/V2] LEFT AXIS DEVIATION [QRS AXIS < -30] INCOMPLETE RIGHT BUNDLE BRANCH BLOCK [90+ ms QRS DURATION, TERMINAL R IN V1/V2, 40+ ms S IN I/aVL/V4/V5/V6] ABNORMAL ECG Compared to ECG 05/07/2025 10:05:32 Myocardial infarct finding no longer present Electronically Signed On 05-11-2025 08:05:02 CDT by Rafael Escalante M.D.
--- NOTE | 2025-05-10 13:50 | ED_ITS ---
HPI - Chest Pain General Chief Complaint: Chest Pain <Sarah Monreal APRN - Last Filed: 05/10/25 13:53> Stated Complaint: Diag Pneumonia-left arm/chest pain <Sarah Monreal APRN - Last Filed: 05/10/25 13:53> Time Seen by Provider: 05/10/25 13:50 <Sarah Monreal APRN - Last Filed: 05/10/25 13:53> Focused HPI: Patient is a 49-year-old female who presents to the ER with left-sided chest pain and left arm pain. She reports she was diagnosed with pneumonia here 4 days ago. Patient reports she had a follow-up with her primary care provider earlier today who administered a nebulizer treatment. She reports she has been taking her antibiotics as prescribed, but now she has significant pain. Patient endorses a history of autoimmune disorders including ITP, RA, and Sjogren. She denies any recent fevers, urinary symptoms, or abdominal pain. GENERAL: Ill-appearing, well-nourished, and in no acute distress. HEAD: Normocephalic, atraumatic. CHEST: Coarse, L > R. No respiratory distress. HEART: Regular rate and rhythm.? NEURO: ?Alert and oriented x3. Patient screened in triage and initial orders placed.? ?Additional care and disposition to be based upon?diagnostic testing and treatment. <Sarah Monreal APRN - Last Filed: 05/10/25 13:53> History of Present Illness HPI narrative: see HPI <Karla Bee MD - Last Filed: 05/11/25 00:13> Related Data Home Medications: Home Medications ?Medication ?Instructions ?Recorded ?Confirmed ?Last Taken ?Type hydroxychloroquine 200 mg tablet mg PO 05/04/25 Unkno wn History paroxetine HCl 10 mg tablet 10 mg PO QAM 05/04/25 Unk nown History <Sarah Monreal APRN - Last Filed: 05/10/25 13:53> Allergies/Adverse Reactions: Allergies Allergy/AdvReac Type Severity Reaction Status Date / Time Sulfa (Sulfonamide Allergy Unknown Hives Verified 05/10/25 13:44 Antibiotics) SHELLFISH Allergy Severe Hives Uncoded 01/20/25 17:34 <Sarah Monreal APRN - Last Filed: 05/10/25 13:53> Review of Systems 2 Review of Systems: All systems reviewed & are unremarkable except as noted in HPI and below <Karla Bee MD - Last Filed: 05/11/25 00:13> PMFSH Past Medical History Medical History: Medical History Sjogren syndrome Rheumatoid arthritis MRSA (methicillin resistant staph aureus) culture positive Chronic ITP (idiopathic thrombocytopenia) Kidney stones <Sarah Monreal APRN - Last Filed: 05/10/25 13:53> Surgical History Surgical History: Surgical History H/O tubal ligation <Sarah Monreal APRN - Last Filed: 05/10/25 13:53> Social History Social History: Social History Smoking status: Never smoker <Sarah Monreal APRN - Last Filed: 05/10/25 13:53> Exam 2 Narrative: EXAMINATION OF ORGAN SYSTEMS/BODY AREAS: Constitutional: Vital signs per nursing GENERAL:[No acute distress, non-toxic appearing.] HEAD: Normal with no signs of head trauma. EYES: EOMI, conjunctiva normal ENT: Hearing grossly intact, slightly hoarse LUNGS: Nonlabored breathing. wheezing bilaterally HEART: [Regular rate and rhythm] ABD: [Soft], [nontender to palpation] EXT: Normal range of motion SKIN: [No rashes or lesions.] NEURO: [Alert and oriented x 3. No gross focal sensory or strength deficits.] PSYCH: Normal affect <Karla Bee MD - Last Filed: 05/11/25 00:13> Course Vital Signs Vital signs: Vital Signs Temperature 98.7 F 05/10/25 13:47 Pulse Rate 101 H 05/10/25 13:47 Respiratory Rate 16 05/10/25 13:47 Blood Pressure 123/82 05/10/25 13:47 Pulse Oximetry 98 05/10/25 13:47 Temperature 98.7 F 05/10/25 13:47 Pulse Rate 81 05/10/25 20:09 Respiratory Rate 18 05/10/25 20:09 Blood Pressure 99/68 L 05/10/25 20:09 Pulse Oximetry 99 05/10/25 20:09 Oxygen Delivery Room Air 05/10/25 19:20 <Sarah Monreal APRN - Last Filed: 05/10/25 13:53> Vital Signs Temperature 98.7 F 05/10/25 13:47 Pulse Rate 101 H 05/10/25 13:47 Respiratory Rate 16 05/10/25 13:47 Blood Pressure 123/82 05/10/25 13:47 Pulse Oximetry 98 05/10/25 13:47 Temperature 98.7 F 05/10/25 13:47 Pulse Rate 81 05/10/25 20:09 Respiratory Rate 18 05/10/25 20:09 Blood Pressure 99/68 L 05/10/25 20:09 Pulse Oximetry 99 05/10/25 20:09 Oxygen Delivery Room Air 05/10/25 19:20 <Karla Bee MD - Last Filed: 05/11/25 00:13> MDM - Chest Pain MDM Narrative Medical decision making narrative: ED COURSE AND MEDICAL DECISION MAKINF presenting with chest pain, cough, shortness of breath ongoing for last few days, recently diagnosed with pneumonia and started on breathing treatments which she states do help. EKG done in triage negative for acute ischemic changes. Cardiac workup is initiated. EKG: Performed in triage and interpreted by me. Normal sinus rhythm. Rate 87. Left axis. AK normal. QRS duration normal. QTc normal. No pathologic Q waves. No ST segment elevation or depression to suggest acute ischemia. No RV strain pattern. HEART score is 1 with no acute ischemic changes on EKG and negative troponin making ACS unlikely. Positive D-dimer but CT PE negative for acute abnormality and no pneumonia. She does have a lot of wheezing so I suspect most likely acute bronchitis. She does feel better after inhaler. On repeat evaluation just prior to discharge, the patient is no acute distress. I had a long discussion with the patient and with shared decision making, she is comfortable with outpatient management. She was given clear return instructions by myself in person as well as on discharge paperwork. I will provide follow-up information for boatbuilder supervisor and electromechanical assembly technician given her symptoms. <Karla Bee MD - Last Filed: 05/11/25 00:13> Lab Data Result diagrams: 05/10/25 18:13 05/10/25 18:13 <Sarah Monreal, AUTOMAT CAR ATTENDANT - Last Filed: 05/10/25 13:53> Labs: Lab Results 05/10/25 05/10/25 05/10/25 Range/Units 18:13 18:18 19:26 WBC 11.0 H (4.5-10.0) K/mm3 RBC 4.65 (4.2-5.4) M/mm3 Hgb 13.8 (12.0-15.0) g/dL Hct 42.6 (37.0-47.0) % MCV 91.6 (80-100) fl MCH 29.7 (26-34) pg MCHC 32.4 (32-36) g/dl RDW 13.1 (11.5-14.5) % Plt Count 233 (150-375) k/mm3 MPV 11.0 H (7.4-10.4) fl Immature Gran % (Auto) 0.6 H (0-0.5) % Neut % (Auto) 64.0 (45.5-73.1) % Lymph % (Auto) 21.4 (18.3-44.2) % [place] % (Auto) 9.4 H (2.6-8.5) % Eos % (Auto) 4.0 (0-4.4) % Baso % (Auto) 0.6 (0.2-1.2) % Lymph # (Auto) 2.35 (0.9-3.2) K/mm3 [place] # (Auto) 1.0 H (0.1-0.6) K/mm3 Eos # (Auto) 0.4 H (0-0.3) K/mm3 Baso # (Auto) 0.1 (0.0-0.1) K/mm3 Abs Immat Gran (auto) 0.07 H (0.00-0.031) K/mm3 Absolute Neuts (auto) 7.0 H (1.3-6.7) K/mm3 Absolute Nucleated RBC 0.000 (0.0-0.012) K/mm3 Nucleated RBC % 0.0 (0.0-0.2) % PT 12.8 (11.1-14.7) Seconds INR 1.0 APTT 25.1 (22.3-36.8) Seconds D-Dimer 0.53 H (<0.48) ug/mL Sodium 137 (137-145) mmol/L Potassium 3.7 (3.4-5.0) mmol/L Chloride 101 (98-107) mmol/L Carbon Dioxide 30 (22-30) mmol/L Anion Gap 6 (4-12) mmol/L BUN 12 (7-17) mg/dL Creatinine 0.83 (0.7-1.0) mg/dL Estim Creat Clear Calc 75 ml/min Estimated GFR > 60 (59 - ) Glucose 137 H (65-110) mg/dL Lactic Acid 1.4 (0.7-2.0) mmol/L Calcium 9.0 (8.4-10.2) mg/dL Total Bilirubin 0.4 (0.2-1.3) mg/dL AST 48 H (14-36) U/L ALT 36 H (6-35) U/L Alkaline Phosphatase 60 (38-126) U/L Troponin I < 0.012 (0.000-0.034) ng/mL Total Protein 7.6 (6.3-8.2) g/dL Albumin 4.4 (3.5-5.1) g/dL Lipase 48 (23-300) U/L Urine Color Yellow (Yellow) Urine Appearance Clear (Clear) Urine pH 5.5 (5.0-9.0) Ur Specific [place] 1.017 (1.001-1.035) Urine Protein Negative (Negative) mg/dL Urine Glucose (UA) Negative (Negative) mg/dL Urine Ketones Negative (Negative) mg/dL Ur Blood (Man) Negative (Negative) Urine Nitrate Negative (Negative) Urine Bilirubin Negative (Negative) Urine Urobilinogen 0.2 (<2.0) mg/dL Leukocyte Esterase Rfl Negative (Negative) GRACE/UL POC Urine HCG, Qual Negative (Negative) <Sarah Monreal, AUTOMAT CAR ATTENDANT - Last Filed: 05/10/25 13:53> Lab Results 05/10/25 05/10/25 05/10/25 Range/Units 18:13 18:18 19:26 WBC 11.0 H (4.5-10.0) K/mm3 RBC 4.65 (4.2-5.4) M/mm3 Hgb 13.8 (12.0-15.0) g/dL Hct 42.6 (37.0-47.0) % MCV 91.6 (80-100) fl MCH 29.7 (26-34) pg MCHC 32.4 (32-36) g/dl RDW 13.1 (11.5-14.5) % Plt Count 233 (150-375) k/mm3 MPV 11.0 H (7.4-10.4) fl Immature Gran % (Auto) 0.6 H (0-0.5) % Neut % (Auto) 64.0 (45.5-73.1) % Lymph % (Auto) 21.4 (18.3-44.2) % [place] % (Auto) 9.4 H (2.6-8.5) % Eos % (Auto) 4.0 (0-4.4) % Baso % (Auto) 0.6 (0.2-1.2) % Lymph # (Auto) 2.35 (0.9-3.2) K/mm3 [place] # (Auto) 1.0 H (0.1-0.6) K/mm3 Eos # (Auto) 0.4 H (0-0.3) K/mm3 Baso # (Auto) 0.1 (0.0-0.1) K/mm3 Abs Immat Gran (auto) 0.07 H (0.00-0.031) K/mm3 Absolute Neuts (auto) 7.0 H (1.3-6.7) K/mm3 Absolute Nucleated RBC 0.000 (0.0-0.012) K/mm3 Nucleated RBC % 0.0 (0.0-0.2) % PT 12.8 (11.1-14.7) Seconds INR 1.0 APTT 25.1 (22.3-36.8) Seconds D-Dimer 0.53 H (<0.48) ug/mL Sodium 137 (137-145) mmol/L Potassium 3.7 (3.4-5.0) mmol/L Chloride 101 (98-107) mmol/L Carbon Dioxide 30 (22-30) mmol/L Anion Gap 6 (4-12) mmol/L BUN 12 (7-17) mg/dL Creatinine 0.83 (0.7-1.0) mg/dL Estim Creat Clear Calc 75 ml/min Estimated GFR > 60 (59 - ) Glucose 137 H (65-110) mg/dL Lactic Acid 1.4 (0.7-2.0) mmol/L Calcium 9.0 (8.4-10.2) mg/dL Total Bilirubin 0.4 (0.2-1.3) mg/dL AST 48 H (14-36) U/L ALT 36 H (6-35) U/L Alkaline Phosphatase 60 (38-126) U/L Troponin I < 0.012 (0.000-0.034) ng/mL Total Protein 7.6 (6.3-8.2) g/dL Albumin 4.4 (3.5-5.1) g/dL Lipase 48 (23-300) U/L Urine Color Yellow (Yellow) Urine Appearance Clear (Clear) Urine pH 5.5 (5.0-9.0) Ur Specific [place] 1.017 (1.001-1.035) Urine Protein Negative (Negative) mg/dL Urine Glucose (UA) Negative (Negative) mg/dL Urine Ketones Negative (Negative) mg/dL Ur Blood (Man) Negative (Negative) Urine Nitrate Negative (Negative) Urine Bilirubin Negative (Negative) Urine Urobilinogen 0.2 (<2.0) mg/dL Leukocyte Esterase Rfl Negative (Negative) GRACE/UL POC Urine HCG, Qual Negative (Negative) <Karla Bee MD - Last Filed: 05/11/25 00:13> Discharge Plan Discharge Clinical Impression: Acute bronchitis <Sarah Monreal APRN - Last Filed: 05/10/25 13:53> Patient Disposition: Home <Sarah Monreal APRN - Last Filed: 05/10/25 13:53> Condition: Stable <Sarah Monreal APRN - Last Filed: 05/10/25 13:53> Instructions: Acute Bronchitis (ED) <Sarah Monreal APRN - Last Filed: 05/10/25 13:53> Additional Instructions: Please follow up with your PCP; continue using the inhalers as prescribed. Please consider following up with a heart and lung doctor. You can always return to the emergency room for any further issues. <Sarah Monreal APRN - Last Filed: 05/10/25 13:53> Patient Language: Azeri <Sarah Monreal APRN - Last Filed: 05/10/25 13:53> Prescriptions: No Action hydroxychloroquine 200 mg tablet PO paroxetine HCl 10 mg tablet 10 mg PO QAM prednisone 20 mg tablet 40 mg PO DAILY 5 Days Qty: 10 0RF (DME) Aerochamber Plus Z Stat Spacer See Rx Instructions .Route Qty: 1 0RF Rx Instructions: As directed benzonatate 100 mg capsule 100 mg PO BID PRN (Reason: cough) Qty: 20 0RF Cepacol Sore Throat-Cough 5-7.5 mg lozenge 1 salbador PO Q4H PRN (Reason: cough) Qty: 16 0RF doxycycline hyclate 100 mg capsule 100 mg PO DAILY 4 Days Qty: 4 0RF Rx Instructions: rec'd first dose in ED 05/07; can substitute w/ tablets if needed amoxicillin-pot clavulanate 875-125 mg tablet 1 tablet PO Q12H 5 Days Qty: 9 0RF Rx Instructions: Received 1st dose in emergency department 05/07 AM clotrimazole 1 % cream 1 applic topical BID 28 Days Qty: 15 0RF <Sarah Monreal APRN - Last Filed: 05/10/25 13:53> Follow-up/Referrals: Rafael Escalante MD [Physician, Cardiology] - 2 Days Roland Garcia MD [Primary Care Provider, Family Practice] - 2 Days Kvng Lance MD [Physician, Pulmonology] - 2 Days <Sarah Monreal APRN - Last Filed: 05/10/25 13:53>
--- NOTE | 2025-05-10 14:32 | PCRCNOTE ---
Tx not given at this time; Pt. is not in a room yet.
--- NOTE | 2025-05-10 15:49 | PCRCNOTE ---
PT. DOESN'T HAVE A ROOM YET.
[2025-05-10 18:29] LABS: Hematocrit 42.6 % (37.0-47.0); Hemoglobin 13.8 g/dL (12.0-15.0); Immature Granulocyte Percent A 0.6 % (0-0.5); Lymphocytes Absolute Auto 2.35 K/mm3 (0.9-3.2); Mean Corpuscular HGB Conc 32.4 g/dl (32-36); Mean Corpuscular Hemoglobin 29.7 pg (26-34); Mean Corpuscular Volume 91.6 fl (80-100); Nucleated Red Blood Cells Absolute Auto 0.000 K/mm3 (0.0-0.012); Nucleated Red Blood Cells Perc 0.0 % (0.0-0.2); Platelet Count Result 233 k/mm3 (150-375); Red Blood Count 4.65 M/mm3 (4.2-5.4); White Blood Count 11.0 K/mm3 (4.5-10.0)
[2025-05-10 18:30] LABS: Add Urine Microscopic? NO; Appearance Urine Clear (Clear); Glucose Urine UA Negative (Negative); Leukocyte Esterase Ur Negative LEU/UL (Negative); Nitrate Urine Negative (Negative); Specific Grav Ur 1.017 (1.001-1.035)
[2025-05-10 18:41] LABS: Alanine Aminotransferase 36 U/L (6-35); Albumin Level 4.4 g/dL (3.5-5.1); Alkaline Phosphatase 60 U/L (38-126); Anion Gap 6 mmol/L (4-12); Aspartate Amino Transferase 48 U/L (14-36); Bilirubin,Total 0.4 mg/dL (0.2-1.3); Blood Urea Nitrogen 12 mg/dL (7-17); Calcium 9.0 mg/dL (8.4-10.2); Carbon Dioxide 30 mmol/L (22-30); Chloride 101 mmol/L (98-107); Estimated CRCL calculation 75 ml/min; Estimated Glomerular Filt Rate > 60; Glucose 137 mg/dL (65-110); Lipase 48 U/L (23-300); Potassium 3.7 mmol/L (3.4-5.0); Sodium 137 mmol/L (137-145); Total Protein 7.6 g/dL (6.3-8.2)
[2025-05-10 18:51] LABS: Troponin I < 0.012 ng/mL (0.000-0.034)
[2025-05-10 18:58] LABS: INR 1.0; Prothrombin Time 12.8 Seconds (11.1-14.7)
[2025-05-10 18:59] LABS: Partial Thromboplastin Time 25.1 Seconds (22.3-36.8)
[2025-05-10 19:27] LABS: BEDSIDEPREGUCG Negative (Negative)
[2025-05-10] MEDS: ALBUTEROL SULFATE (*SP) AEROSOL 1 PUFF 2 PUFF INHALATION (19:59)
[2025-05-10 20:01] VITALS: PULSE 82; RESP 16
[2025-05-10 20:02] VITALS: PULSE 84; RESP 21
[2025-05-10 20:09] VITALS: BP 99/68; PULSE 81; RESP 18; O2SAT 99
== END 2025-05-10 20:10 | disposition home or self-care (01) ==
PROVIDERS: Registered Nurse; Emergency Provider Emergency Medicine; PCP Emergency Medicine
DX: J20.9 Acute bronchitis, unspecified (principal); J18.0 Bronchopneumonia, unspecified organism; M35.00 Sjogren syndrome, unspecified; M06.9 Rheumatoid arthritis, unspecified; D69.3 Immune thrombocytopenic purpura; Z86.14 Personal history of Methicillin resistant Staphylococcus aureus infection; Z87.442 Personal history of urinary calculi; Z79.899 Other long term (current) drug therapy; I45.10 Unspecified right bundle-branch block; R94.31 Abnormal electrocardiogram [ECG] [EKG]
CPT/HCPCS: 36415; 71046; 71275; 80053; 81003; 81025; 83605; 83690; 84484; 85025; 85380; 85610; 85730; 93005; 94640; 94664; 99284; A9270; Q9967

== ENCOUNTER 2025-05-18 04:59 | Emergency (ER) | payer OTHER, SELFPAY ==
--- NOTE | ~2025-05-18 | XR_ITS ---
Examination: XR chest 2V Clinical History: pleuritic chest pain Comparison: 05/10/2025 Technique: PA and Lateral Findings: Cardiomediastinal silhouette normal size and configuration. Lungs clear. No acute bony abnormality. IMPRESSION: 1. No acute cardiopulmonary findings. Reviewed, dictated and finalized at location R.
[2025-05-18 05:06] VITALS: BP 123/88; PULSE 67; RESP 14; TEMP 36.9; O2SAT 95
--- NOTE | 2025-05-18 05:26 | ECG_ITS ---
Test Date: 2025-05-18 05:40:55 Measurements Intervals [place] Rate: 76 P: 34 OR: 154 QRS: -49 QRSD: 92 T: 31 QT: 359 QTc: 404 Interpretive Statements SINUS RHYTHM LEFT ANTERIOR FASCICULAR BLOCK [QRS AXIS <= -45, QR IN I, RS IN II] ABNORMAL ECG Compared to ECG 05/10/2025 18:12:32 NO DIFFERENCE Electronically Signed On 05-18-2025 07:44:05 CDT by Kvng Maynard M.D.
--- NOTE | 2025-05-18 05:46 | ED_ITS ---
HPI - General Adult General Chief complaint: Unspecified Stated complaint: rib pain, dx with pneumonia Time Seen by Provider: 05/18/25 05:27 History of Present Illness HPI narrative: 49-year-old female presenting to the emergency department with right-sided pleuritic chest discomfort. She states she was just diagnosed with pneumonia and completed a course antibiotics and steroids and feels better from a pneumonia perspective. No longer having a cough but states that now she is havi ng some pleurisy and pain with deep inspiration. No pain with movement. No pain reproducible on palpation. No left-sided chest discomfort, nausea, vomiting. She had a CT angiogram showed that he had done a week ago that showed resolution of pneumonia and no signs of pulmonary embolism. Patient has not tried anything prior to arrival she states she was not able to sleep secondary to the pleuritic chest pain but feels much better when she sitting upright or walking around. Related Data Home Medications ?Medication ?Instructions ?Recorded ?Confirmed ?Last Taken ?Type hydroxychloroquine 200 mg tablet mg PO 05/04/25 Unkno wn History paroxetine HCl 10 mg tablet 10 mg PO QAM 05/04/25 Unk nown History Allergies Allergy/AdvReac Type Severity Reaction Status Date / Time Sulfa (Sulfonamide Allergy Unknown Hives Verified 05/18/25 06:03 Antibiotics) SHELLFISH Allergy Severe Hives Uncoded 01/20/25 17:34 Review of Systems Review of Systems: As reviewed above in HPI [facility] Past Medical History Medical History Sjogren syndrome Rheumatoid arthritis MRSA (methicillin resistant staph aureus) culture positive Chronic ITP (idiopathic thrombocytopenia) Kidney stones Surgical History Surgical History H/O tubal ligation Social History Social History Smoking status: Never smoker Exam Narrative: GENERAL: [Well-appearing, well-nourished, and in no acute distress.] HEAD: [Normocephalic, atraumatic.] EYES: [PERRLA and EOMI.] ENT: Nares clear, no rhinorrhea or epistaxis. Mucous membranes moist. NECK: Supple. CHEST: [Clear to auscultation. No respiratory distress.] HEART: [Regular rate and rhythm]. No murmur heard. [Normal peripheral pulses.] ABDOMEN: [Soft, nondistended], [nontender], [No rigidity or guarding] EXTREMITIES: Normal range of motion. [No edema.] SKIN: Warm, dry, no rash. NEURO: [No focal deficits]. Alert and oriented [x3.] PSYCH: [Normal mood and affect.] Course Vital Signs Vital signs: Vital Signs Temperature 36.9 C 05/18/25 05:06 Pulse Rate 67 05/18/25 05:06 Respiratory Rate 14 05/18/25 05:06 Blood Pressure 123/88 05/18/25 05:06 Pulse Oximetry 95 05/18/25 05:06 Oxygen Delivery Room Air 05/18/25 05:06 Temperature 36.9 C 05/18/25 05:06 Pulse Rate 67 05/18/25 06:04 Respiratory Rate 16 05/18/25 06:04 Blood Pressure 128/74 05/18/25 06:04 Pulse Oximetry 97 05/18/25 06:04 Oxygen Delivery Room Air 05/18/25 05:06 Medical Decision Making MDM Narrative Medical decision making narrative: 49-year-old female presenting to the emergency department with right-sided pleuritic chest discomfort. She states she was just diagnosed with pneumonia and completed a course antibiotics and steroids and feels better from a pneumonia perspective. No longer having a cough but states that now she is having some pleurisy and pain with deep inspiration. No pain with movement. No pain reproducible on palpation. No left-sided chest discomfort, nausea, vomiting. She had a CT angiogram showed that he had done a week ago that showed resolution of pneumonia and no signs of pulmonary embolism. Patient has not tried anything prior to arrival she states she was not able to sleep secondary to the pleuritic chest pain but feels much better when she sitting upright or walking around. Patient is hemodynamically stable. No tachycardia, fever, hypoxemia blood pressure concerns. Strong symmetric pulses in clear breath sounds. No overl tay skin deformity or chest wall crepitus or tenderness. Symptoms consistent with pleurisy, possibility of recurrent pneumonia. No suspicion presently for pneumothorax or ACS. EKG and two-view chest x-ray obtained. She was given Toradol and Tylenol for analgesia. X-ray shows no acute cardiopulmonary process. EKG is nonischemic without any ST segment elevations or depressions. Patient is safe for discharge with primary care provider follow-up and given prescriptions for Toradol. Medical Records Medical records reviewed: Yes I reviewed the external patient's medical records. Vital Signs Vital Signs: Vital Signs Temperature 36.9 C 05/18/25 05:06 Pulse Rate 67 05/18/25 05:06 Respiratory Rate 14 05/18/25 05:06 Blood Pressure 123/88 05/18/25 05:06 Pulse Oximetry 95 05/18/25 05:06 Oxygen Delivery Room Air 05/18/25 05:06 Temperature 36.9 C 05/18/25 05:06 Pulse Rate 67 05/18/25 06:04 Respiratory Rate 16 05/18/25 06:04 Blood Pressure 128/74 05/18/25 06:04 Pulse Oximetry 97 05/18/25 06:04 Oxygen Delivery Room Air 05/18/25 05:06 Imaging Data Attestation: I personally reviewed and interpreted this imaging study as follows: My impression: No acute process Discharge Plan Discharge Clinical Impression: Pleurisy Patient Disposition: Home Condition: Stable Instructions: Antibiotic Form, Pleurisy (DC) Additional Instructions: X-ray does not show any pneumonia or fluid around her lungs or heart. EKG is normal. Symptoms consistent with postinfectious pleurisy. We have prescribed you high-dose anti-inflammatories to take for this pain. Return with any emergencies otherwise follow-up with regular primary care provider. Patient Language: Burundian Prescriptions: New ketorolac 10 mg tablet 10 mg PO Q8H PRN (Reason: pain) 5 Days Qty: 20 0RF Rx Instructions: maximum total duration of 5 days from all oral, intranasal, or parenteral formulations No Action hydroxychloroquine 200 mg tablet PO paroxetine HCl 10 mg tablet 10 mg PO QAM prednisone 20 mg tablet 40 mg PO DAILY 5 Days Qty: 10 0RF (DME) Aerochamber Plus Z Stat Spacer See Rx Instructions .Route Qty: 1 0RF Rx Instructions: As directed benzonatate 100 mg capsule 100 mg PO BID PRN (Reason: cough) Qty: 20 0RF Cepacol Sore Throat-Cough 5-7.5 mg lozenge 1 salbador PO Q4H PRN (Reason: cough) Qty: 16 0RF doxycycline hyclate 100 mg capsule 100 mg PO DAILY 4 Days Qty: 4 0RF Rx Instructions: rec'd first dose in ED 05/07; can substitute w/ tablets if needed amoxicillin-pot clavulanate 875-125 mg tablet 1 tablet PO Q12H 5 Days Qty: 9 0RF Rx Instructions: Received 1st dose in emergency department 05/07 AM clotrimazole 1 % cream 1 applic topical BID 28 Days Qty: 15 0RF Follow-up/Referrals: Roland Garcia MD [Primary Care Provider, Family Practice] Time of Disposition: 06:11
[2025-05-18] MEDS: ACETAMINOPHEN 500 MG TABLET 1000 MG PO (05:58)
[2025-05-18] MEDS: KETOROLAC 30 MG/ML VIAL (*BKC) IM (05:59)
[2025-05-18 06:02] VITALS: RESP 14; O2SAT 96
[2025-05-18 06:04] VITALS: BP 128/74; PULSE 67; RESP 16; O2SAT 97
[2025-05-18 06:30] VITALS: BP 138/64; PULSE 67; RESP 18; O2SAT 99
== END 2025-05-18 06:30 | disposition home or self-care (01) ==
PROVIDERS: Emergency Provider Student in an Organized Health Care Education/Training Program; PCP Emergency Medicine
DX: R09.1 Pleurisy (principal)
CPT/HCPCS: 71046; 93005; 96372; 99283; A9270; J1885

== ENCOUNTER 2025-07-10 07:10 | Outpatient (CLI) | payer OTHER, SELFPAY ==
--- NOTE | ~2025-07-10 | MM_ITS ---
EXAMINATION: MM screening [facility] BI w teo HISTORY: Screening TECHNIQUE: Craniocaudal and mediolateral oblique 3-D tomosynthesis images were obtained and synthetic 2-D images were generated. CAD analysis was submitted and interpreted. COMPARISON: Comparison to multiple prior studies sequentially, with oldest reviewed study dated 11/01/2020. BREAST PARENCHYMAL COMPOSITION: Not dense: There are scattered areas of fibroglandular density. FINDINGS: There is no evidence of suspicious mass, calcification, or architectural distortion to suggest malignancy in either breast. There has been no suspicious interval change. IMPRESSION: 1. No mammographic evidence of malignancy. 2. Recommend routine screening mammography in one year. BI-RADS Category 1: Negative Reviewed, dictated and finalized at location O. IED RESEARCHER
== END 2025-07-10 07:11 | disposition home or self-care (01) ==
PROVIDERS: Visit Provider Nurse Practitioner
DX: Z12.31 Encounter for screening mammogram for malignant neoplasm of breast (principal)
CPT/HCPCS: 77063; 77067

== ENCOUNTER → 2025-08-06 14:02 | Outpatient (CLI) | payer OTHER, SELFPAY ==
--- NOTE | ~2025-08-06 | XR_ITS ---
EXAMINATION: XR knee RT min 4V, 08/06/2025 14:10 MANAGER COMBINATION HISTORY: RT KNEE PAIN, nki COMPARISON: No comparisons available. Findings: No acute fracture or malalignment. No significant degenerative changes. Soft tissues unremarkable. Impression: No acute fracture or malalignment. Reviewed, dictated and finalized at location P. GER COMBINATION Impression: No acute fracture or malalignment.
== END ==
PROVIDERS: PCP Emergency Medicine; Visit Provider Emergency Medicine
DX: M25.561 Pain in right knee (principal)
CPT/HCPCS: 73564